=== PATIENT | female | born 1995 | race Caucasian/White ===

== ENCOUNTER 2020-03-24 08:37 | Outpatient (CLI) | payer OTHER, SELFPAY ==
--- NOTE | 2020-03-24 09:30 | NEURO_ITS ---
TEST: ELECTROENCEPHALOGRAM DIAGNOSIS: HEADACHES PATIENT NUMBER: [id number] EEG NUMBER: [id number] RECORDING DATE: 03/24/20 CONDITION OF RECORDING: Awake, drowsy and sleep EEG DESCRIPTION: Basic resting occipital frequency consists of moderate amount of fairly well organized low voltage 8-10hz alpha mixed with low voltage 15-18hz beta. Photic stimulation produced normal drive. During drowsiness low voltage beta activity is seen diffusely mixed with waxing and waning posterior alpha rhythms. Bilateral symmetrical sleep activity is seen during sleep. Nonparoxysmal. Nonfocal. Nonlateralizing. IMPRESSION: Normal record. [facility]
== END 2020-03-24 08:38 | disposition home or self-care (01) ==
LOC: ANHNEURO 08:39
PROVIDERS: PCP Physician Assistant; Visit Provider Psychiatry & Neurology Neurology
DX: R51 Headache (principal)
CPT/HCPCS: 95816

== ENCOUNTER 2021-03-29 12:49 | Emergency (ER) | payer MEDICARE, OTHER, SELFPAY ==
--- NOTE | ~2021-03-29 | XR_ITS ---
EXAMINATION: XR shoulder RT min 2V INDICATION: Right shoulder pain TECHNIQUE: Five views of the right shoulder are submitted. COMPARISON: None FINDINGS: Normal alignment. No fracture. Glenohumeral and acromioclavicular joint spaces are normal. Soft tissues are unremarkable. IMPRESSION: 1. No acute osseous abnormality. Reviewed, dictated and finalized at location A.
[2021-03-29 13:00] VITALS: BP 130/74; PULSE 81; RESP 18; TEMP 36.7; O2SAT 99
--- NOTE | 2021-03-29 13:50 | ED.NECK ---
HPI - Neck Pain/Injury General Chief Complaint: Neck Pain/Injury Stated Complaint: neck pain Source: patient and RN notes reviewed Mode of arrival: ambulatory History of Present Illness HPI Narrative: This is a 25-year-old female right shoulder pain. She has an extensive medical history including multiple strokes. According to patient when she turns her head to the right, lie on her right shoulder or extends her head backwards she experiences the most pain. No deformities noted in her neck or shoulder. She has been taking [id number] Tylenol for pain with no relief. [place] and [place] on her right side while the right. Ever since then she has been experiencing pain. No neurovascular deficiency noted, she has limited range of motion due to pain of her neck, sensations are positive to her right shoulder and neck. The patient denies SOB, CP, palpitation, extremity numbness, lightheadedness, dizziness, constipation, diarrhea, chills, or fever. Related Data Home Medications Medication Instructions Recorded Confirmed hydrocodone-acetaminophen tablet PO BID 03/29/21 medroxyprogesterone 150 mg IM [id number] 03/29/21 03/29/21 Allergies Allergy/AdvReac Type Severity Reaction Status Date / Time No Known Allergies Allergy Verified 03/29/21 13:09 Review of Systems Review of Systems: A 14 organ system Review of Systems was performed and pertinent positives included in the HPI, otherwise remaining ROS is negative. [facility] Family History Family History (Updated 03/29/21 @ 13:53 by PHANI Malcolm) Other Family history non-contributory Social History Social History Smoking status: Never smoker Alcohol intake: never Gender identity (if verbalized by the patient): Female Exam Narrative: GENERAL: This is a well-nourished, well-developed patient, in no apparent distress. HEAD: normocephalic, atraumatic. Tenderness to neck area with palpation EYES: PERRL. Sclera clear/white. Vision is grossly intact. EARS: External ears normal, auditory canals clear and without drainage, TMs normal without perforation. Hearing grossly intact. NOSE: External nose normal with no obvious nasal discharge, nares without redness, no rhinorrhea. THROAT: Mucous membranes moist, posterior pharynx clear. NECK: Neck supple, non-tender without lymphadenopathy, masses or thyromegaly. CARDIOVASCULAR: Regular rate and rhythm without murmurs, gallops, or rubs. RESPIRATORY: Clear to auscultation. Breath sounds equal bilaterally. No wheezes, rales, or rhonchi. GASTROINTESTINAL: Abdomen soft, non-tender, nondistended. Bowel sounds are active. No hepato-splenomegaly, or palpable masses. No guarding. SKIN: warm, intact with no suspicious lesions or rash, good texture and turgor. NEURO: awake, alert, and oriented to person, place and time. There were no obvious focal neurologic abnormalities. Steady gait EXTREMITIES: Normal range of motion. No edema. No calf tenderness. Negative Homans sign bilaterally. BACK: Nontender without deformity or crepitance. No flank tenderness. Course Course Emergency Course: Patient will be given Flexeril instructed to follow-up with her primary care physician in 2 weeks if no relief. Was also instructed to utilize ice Vital Signs Vital signs: Vital Signs Temperature 98.1 F 03/29/21 13:00 Pulse Rate 81 03/29/21 13:00 Respiratory Rate 18 03/29/21 13:00 Blood Pressure 130/74 03/29/21 13:00 Pulse Oximetry 99 03/29/21 13:00 Temperature 98.1 F 03/29/21 13:00 Pulse Rate 81 03/29/21 13:00 Respiratory Rate 18 03/29/21 13:00 Blood Pressure 130/74 03/29/21 13:00 Pulse Oximetry 99 03/29/21 13:00 MDM - Neck Pain/Injury Differential Diagnosis Differential diagnosis: Likely disc disorder of cervical region, whiplash injury to neck and strain of neck muscle Discharge Plan Discharge Clinical I
== END 2021-03-29 14:18 | disposition home or self-care (01) ==
PROVIDERS: Emergency Provider Nurse Practitioner
DX: S16.1XXA Strain of muscle, fascia and tendon at neck level, initial encounter (principal); W22.8XXA Striking against or struck by other objects, initial encounter; M25.511 Pain in right shoulder
CPT/HCPCS: 73030; 99213; G0463

== ENCOUNTER 2023-09-10 16:24 | Outpatient (CLI) | payer MEDICARE, MEDICAID, SELFPAY ==
--- NOTE | ~2023-09-10 | MR_ITS ---
EXAMINATION: MR brain/brain stem wo con DATE: 09/10/2023 17:20 INDICATION: Headache. Cavernoma status post reduction. TECHNIQUE: Magnetic resonance imaging (MRI) of the brain and brainstem was performed without intraven ous contrast. COMPARISON: Brain MRI 12/13/2015, head CT 01/07/2018 FINDINGS: There is chronic encephalomalacia involving right frontal temporal parietal region, right i nsula, right basal ganglia, and posterior limb right internal capsule with old blood products. There are punctate foci of old blood products in the frontal lobes. There is a chronic focus of old blood p roducts in left lateral ventricle. There is no acute ischemic infarct or abnormal mass lesion. There is mild ex vacuo dilatation of right lateral ventricle. There is mild mucosal thickening in the ethmo id sinuses. The orbits are normal. The mastoid air cells are normal. IMPRESSION: 1. Chronic encephalomalacia involving the right frontal temporal parietal region, right insula, right basal ganglia, and posterior limb right internal capsule. Reviewed, dictated and finalized at location E. SFUSION AIDE IMPRESSION: 1. Chronic encephalomalacia involving the right frontal temporal parietal regio n, right insula, right basal ganglia, and posterior limb right internal capsule .
== END 2023-09-10 16:25 | disposition home or self-care (01) ==
LOC: ANHIMG 16:26
PROVIDERS: PCP Family Medicine; Visit Provider Student in an Organized Health Care Education/Training Program
DX: R51.9 Headache, unspecified (principal); D18.00 Hemangioma unspecified site
CPT/HCPCS: 70551

== ENCOUNTER 2024-03-29 18:22 | Emergency (ER) | payer MEDICARE, MEDICAID, SELFPAY ==
--- NOTE | ~2024-03-29 | XR_ITS ---
EXAMINATION: XR chest 2V Exam Date/Time: 03/29/2024 19:00 CDT HISTORY: cough, fever x1 week Comparison: None. RESULT: Lines, tubes, and devices: None. Lungs and pleura: Clear. Cardiomediastinal silhouette: Stable. Other: No acute osseous or upper abdominal finding. IMPRESSION: No acute cardiopulmonary process. Reviewed, dictated and finalized at location K.
[2024-03-29 18:32] VITALS: BP 128/78; PULSE 136; RESP 16; TEMP 37.2; O2SAT 98
--- NOTE | 2024-03-29 18:57 | ED.URI ---
HPI - URI/Sore Throat General Chief Complaint: Upper Respiratory Infection Stated Complaint: cough,chest congestion Time Seen by Provider: 03/29/24 18:44 Source: patient and RN notes reviewed Mode of arrival: ambulatory Limitations: no limitations History of Present Illness HPI Narrative: Patient presents today with a one-week history of cough, chest congestion, headache, occasional shortness of breath, intermittent fever up to 102. She has been taking Mucinex without relief. States she has been exposed to several family members with pneumonia. Related Data Home Medications Medication Instructions Recorded Confirmed cyclobenzaprine 10 mg tablet 10 mg PO TID 06/23/23 03/29/24 sertraline 25 mg tablet 25 mg PO DAILY 06/23/23 03/29/24 Allergies Allergy/AdvReac Type Severity Reaction Status Date / Time No Known Allergies Allergy Verified 03/10/24 10:50 Review of Systems Review of Systems: CONSTITUTIONAL: Denies body aches, chills, or sweats.+ fever EYES: Denies visual changes, redness, or discharge. ENT: Denies rhinorrhea, congestion, sore throat, or otalgia. CARDIOVASCULAR: Denies chest pain, palpitations, or edema. RESPIRATORY: + cough, chest congestion, intermittent shortness of breath. GASTROINTESTINAL: Denies abdominal pain, nausea, vomiting, or diarrhea. GENITOURINARY: Denies dysuria or hematuria. SKIN: Denies rash, itching, or wounds. MUSCULOSKELETAL: Denies back pain, joint pain, or myalgia. NEUROLOGIC: Denies numbness, tingling, or weakness.+ headache PSYCH: Denies depression or anxiety. [facility], [facility] Past Medical History Medical History Anxiety and depression Migraine Stroke Surveillance for Depo-Provera contraception Surgical History Surgical History H/O brain surgery (~2018) Hx of cholecystectomy Family History Family History Other Family history non-contributory Social History Social History Smoking packs per day: 0 Smoking cigarettes per day: 0.0 Years smoked: 0 Smoking pack-years: 0.00 Smoking status: Never smoker Second hand tobacco smoke exposure: Yes Alcohol intake: never Substance use: never Substance use type: does not use Do You Feel Safe in your Home?: Yes Lack of Transportation: No Lack of Food: Never True Current Housing: I Have Housing Concerned About Future Housing: No Difficulty Paying Gas/Electric Bills: No Difficulty Paying for Meds: No Currently Unemployed: No Education: High School Diploma/GED Difficulty w/ Childcare or Family Care: No Living arrangements: other Additional living arrangements comments: Occupation/Education: unemployed Gender identity (if verbalized by the patient): Female Sexual Orientation (if Verbalized by the Patient): Straight or Heterosexual Comments At time of signature, I have reviewed and agree with nursing past medical, surgical, social and family history unless otherwise noted. Please see nursing chart for further information. There is no relevant family history pertinent to the presenting complaint Exam Narrative: GENERAL: Well-appearing, well-nourished, and in no acute distress. HEAD: Normocephalic, atraumatic. EYES: EOMI. No redness or drainage. Conjunctivae normal. ENT: Mucous membranes pink and moist. Nares congested. No rhinorrhea. TMs normal bilaterally. Throat normal. Uvula midline. NECK: Normal AROM. Supple. No lymphadenopathy. CHEST: No respiratory distress. Slight inspiratory wheeze throughout. Deep breath elicits coughing episodes. HEART: Regular rate and rhythm. No murmur appreciated. EXTREMITIES: Normal range of motion. No edema. SKIN: Warm, dry, no rash. Capillary refill normal. Normal skin turgor. NEURO: Left-sided
== END 2024-03-29 19:26 | disposition home or self-care (01) ==
PROVIDERS: Emergency Provider Nurse Practitioner; PCP Nurse Practitioner Family
DX: J40 Bronchitis, not specified as acute or chronic (principal); F41.9 Anxiety disorder, unspecified; F32.A Depression, unspecified; Z86.73 Personal history of transient ischemic attack (TIA), and cerebral infarction without residual deficits
CPT/HCPCS: 71046; 99213; G0463

== ENCOUNTER 2024-04-08 08:23 | Emergency (ER) | payer MEDICARE, MEDICAID, SELFPAY ==
[2024-04-08 08:33] VITALS: BP 129/82; PULSE 113; RESP 16; TEMP 36.8; O2SAT 99
--- NOTE | 2024-04-08 08:49 | ED.NAVMDI ---
HPI - Nausea/Vomiting/Diarrhea General Chief complaint: Nausea/Vomiting/Diarrhea Stated complaint: Ears Irritation Source: patient and RN notes reviewed Mode of arrival: ambulatory Limitations: no limitations History of Present Illness HPI Narrative: 28-year-old female presented for complaint of nausea for several days, and started with vomiting yesterday. states she had about 8 episodes of vomiting which resolved in the night. She was able to tolerate repeat the but reported nausea returned last night. Pt reports nausea today, denies vomiting or diarrhea, abdominal pain, urinary symptoms, fever or chills. Has not eaten anything today. Tested negative for last night and this morning at home. Treated for bronchitis on 03/29 with steroids and albuterol, continues to report persistent cough, And was prescribed cough medicine by her PCP yesterday. Related Data Home Medications Medication Instructions Recorded Confirmed cyclobenzaprine 10 mg tablet 10 mg PO TID 06/23/23 04/08/24 sertraline 25 mg tablet 25 mg PO DAILY 06/23/23 04/08/24 Allergies Allergy/AdvReac Type Severity Reaction Status Date / Time No Known Allergies Allergy Verified 04/08/24 08:40 Review of Systems Review of Systems: CONSTITUTIONAL: Denies body aches, fever, chills ENT: Denies rhinorrhea, congestion Reports bilateral ear pressure CARDIOVASCULAR: Denies chest pain, palpitations, or edema. RESPIRATORY: Denies dyspnea. reports cough GASTROINTESTINAL: Endorses nausea, vomiting, Denies abdominal pain, diarrhea, hematochezia, melena, hematemesis GENITOURINARY: Denies dysuria, hematuria, or CVA tenderness. SKIN: Denies rash MUSCULOSKELETAL: Denies back pain, joint pain, or myalgia. NEUROLOGIC: Denies headache, numbness, tingling All systems reviewed & are unremarkable except as noted in HPI and below PMFSH Past Medical History Medical History Anxiety and depression Migraine Stroke Surveillance for Depo-Provera contraception Surgical History Surgical History H/O brain surgery (~2018) Hx of cholecystectomy Family History Family History Other Family history non-contributory Social History Social History Smoking packs per day: 0 Smoking cigarettes per day: 0.0 Years smoked: 0 Smoking pack-years: 0.00 Smoking status: Never smoker Second hand tobacco smoke exposure: Yes Alcohol intake: never Substance use: never Substance use type: does not use Do You Feel Safe in your Home?: Yes Lack of Transportation: No Lack of Food: Never True Current Housing: I Have Housing Concerned About Future Housing: No Difficulty Paying Gas/Electric Bills: No Difficulty Paying for Meds: No Currently Unemployed: No Education: High School Diploma/GED Difficulty w/ Childcare or Family Care: No Living arrangements: other Additional living arrangements comments: Occupation/Education: unemployed Gender identity (if verbalized by the patient): Female Sexual Orientation (if Verbalized by the Patient): Straight or Heterosexual Comments At time of signature, I have reviewed and agree with nursing past medical, surgical, social and family history unless otherwise noted. Please see nursing chart for further information. There is no relevant family history pertinent to the presenting complaint Exam Narrative: GENERAL: Well-appearing, and in no acute distress. EYES: EOMI. Conjunctivae normal. ENT: Mucous membranes pink and moist. CHEST: No respiratory distress. Clear to auscultation. HEART: Regular rate and rhythm. No murmur appreciated. Normal peripheral pulses. ABDOMEN: abd soft, nondistended, normal active bowel sounds. Nontender abdomen; No guarding, rebound tenderness, as
[2024-04-08 09:19] LABS: EDINFLUASCREEN Negative; EDINFLUBSCREEN Negative
[2024-04-08 09:19] LABS: EDSTREPNEGPOS1 Presumptive Negative
== END 2024-04-08 09:30 | disposition home or self-care (01) ==
PROVIDERS: Emergency Provider Nurse Practitioner Family; PCP Nurse Practitioner Family
DX: J32.9 Chronic sinusitis, unspecified (principal); Z20.822 Contact with and (suspected) exposure to COVID-19; F41.9 Anxiety disorder, unspecified; F32.A Depression, unspecified; Z86.73 Personal history of transient ischemic attack (TIA), and cerebral infarction without residual deficits
CPT/HCPCS: 87081; 87426; 87804; 87880; 99213; G0463

== ENCOUNTER 2024-10-07 15:56 | Outpatient (CLI) | payer MEDICARE, MEDICAID, SELFPAY ==
--- NOTE | ~2024-10-07 | XR_ITS ---
HISTORY: PAIN COMPARISON: None TECHNIQUE: 4 views of the right knee were performed FINDINGS: No acute or subacute fracture. Medial and lateral tibiofemoral joint space narrowing is identified. No suprapatellar joint effusion is identified. The infrapatellar joint space is clear. IMPRESSION: Degenerative disease without acute fracture. Reviewed, dictated and finalized at location A. IFOCAL LENS INSPECTOR
--- NOTE | ~2024-10-07 | XR_ITS ---
HISTORY: PAIN COMPARISON: None TECHNIQUE: 2 views of the right hip. FINDINGS: No acute fracture or dislocation is identified. Superior lateral sclerosis of the right femoral acetabular joint space is present consistent with mil d osteoarthritis. Mineralization is age-appropriate. IMPRESSION: Degenerative disease without acute fracture or dislocation Reviewed, dictated and finalized at location A. TIC MIXER
--- NOTE | ~2024-10-07 | XR_ITS ---
HISTORY: PAIN COMPARISON: None TECHNIQUE: 2 views of the left hip. FINDINGS: No acute fracture or dislocation is identified. Superior lateral sclerosis of the femoral acetabular joint space is present consistent with osteoarth ritis. Mineralization is age-appropriate. IMPRESSION: Degenerative disease without acute fracture or dislocation Reviewed, dictated and finalized at location A. NING DIRECTOR
--- NOTE | ~2024-10-07 | XR_ITS ---
HISTORY: PAIN X SEVERAL YEARS DUE TO STROKE. NO INJURY COMPARISON: None TECHNIQUE: 2 views of the right shoulder were performed FINDINGS: No acute fracture. The glenohumeral and acromioclavicular joint space is maintained The visualized portion of the adjacent right lung is clear. The humeral head is well seated within the glenoid fossa. IMPRESSION: No acute fracture or anterior dislocation. Reviewed, dictated and finalized at location A. CY CHANGE CLERKS SUPERVISOR
--- NOTE | ~2024-10-07 | XR_ITS ---
HISTORY: PAIN COMPARISON: None TECHNIQUE: 4 views of the left knee were performed FINDINGS: No acute or subacute fracture. Medial and lateral tibiofemoral joint space narrowing is identified. A small suprapatellar joint effusion is identified. The infrapatellar joint space is clear. IMPRESSION: Degenerative disease with a small suprapatellar joint effusion, without acute fracture. Reviewed, dictated and finalized at location A. PEMENT MAKER IMPRESSION: Degenerative disease with a small suprapatellar joint effusion, wi thout acute fracture.
--- NOTE | ~2024-10-07 | XR_ITS ---
HISTORY: PAIN COMPARISON: None TECHNIQUE: 2 views of the left shoulder were performed FINDINGS: No acute fracture. The glenohumeral and acromioclavicular joint space is maintained The visualized portion of the adjacent left lung is clear. The humeral head is well seated within the glenoid fossa. IMPRESSION: No acute fracture or anterior dislocation. Reviewed, dictated and finalized at location A. AL ANATOMY TEACHER
--- NOTE | ~2024-10-07 | XR_ITS ---
HISTORY: PAIN COMPARISON: None TECHNIQUE: Frontal view of the pelvis was performed. FINDINGS: Superior lateral joint space narrowing and sclerosis is identified within the bilateral femoral aceta bular joint spaces. No acute fracture or dislocation is appreciated. Bone mineralization is age-appropriate. IMPRESSION: Degenerative disease, without acute fracture or dislocation, as detailed above. Reviewed, dictated and finalized at location A. E PREVENTION POLICE OFFICER
--- OUTSIDE RECORDS SUMMARY | 2024-10-07 16:04 | XMS_ITS | Patient Health Summary ---
Author Organization [facility] Address [address] [place] [address] Care Team Providers Care Senior Etl Developer Name Role Phone Ab Riggs MARGARITA-BALLOON ARTIST Primary Care Provider [phone] Note from [facility] [place],non-owned Affiliates and Associated Physician Practices is amultiple site organization consisting of ambulatory clinics and hospital sitesin [place], [place], [place] and [place]. This disclosure is being madepursuant to the Care Everywhere program and may not contain all information available regarding this patient. Last updated 18.[facility] Allergies No known active allergies Medications * Be aware that medications may not be up to date on this document. Alwaysverify current medications with the patient. * cyclobenzaprine (Flexeril) 5 MG tablet(Started 03/25/2023) TAKE 1 TO 2 TABLETS BY MOUTH THREE TIMES DAILY NEEDED FOR MUSCLE SPASM * azelastine (Optivar) 0.05 % ophthalmic solution(Started 05/26/2023) * fluticasone propionate (Flonase) 50 MCG/ACT nasal spray(Started 01/14/2023) SHAKE LIQUID AND USE 1 SPRAY IN EACH NOSTRIL EVERY DAY * HYDROcodone-acetaminophen (Convent) 10-325 MG tablet(Started 08/17/2023) Take 1 (one) tablet by mouth every 12 hours as needed * loratadine (Claritin) 10 MG tablet(Started 01/14/2023) Take 1 (one) tablet by mouth once daily * sertraline (Zoloft) 25 MG tablet(Started 07/14/2023) Take 1 (one) tablet by mouth once daily * DULoxetine (Cymbalta) 60 MG capsule(Started 04/22/2024) Take 1 (one) capsule by mouth once daily 4 refills by 04/22/2025 * Atogepant (Qulipta) 30 MG TABS(Started 06/01/2024) Take 1 (one) tablet by mouth nightly as needed 1 refill by 06/01/2025 * onabotulinumtoxin A (Botox) 200 units injection(Started 06/01/2024) Inject 400 (four hundred) Units into muscle Every 90 days Reasons: Muscle Spasticity 2 refills by 06/01/2025 * onabotulinumtoxin A (Botox) 200 units injection(Started 06/28/2024) Inject 400 (four hundred) Units into muscle Every 90 days 2 refills by 06/28/2025 Active Problems Problem Noted Date Diagnosed Date Amenorrhea 06/01/2024 Irregular periods 06/01/2024 Lesion of vulva 06/01/2024 Menorrhagia 06/01/2024 Pain in pelvis 06/01/2024 Urinary urgency 06/01/2024 Vaginal discharge 06/01/2024 Cerebrovascular accident 05/12/2023 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 Injury of head 05/12/2023 Left foot drop 05/12/2023 Migraine 05/12/2023 Headache 05/12/2023 Seasonal allergies 05/12/2023 Spasm 05/12/2023 Pain in upper limb 04/02/2023 Pain of toe of left foot 03/25/2023 Mixed anxiety and depressive disorder 12/02/2022 Rubella non-immune status, antepartum 03/17/2019 39 weeks gestation of 03/13/2019 Elevated glucose level 01/25/2019 Hx of craniotomy 09/02/2018 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 Encounter to establish gestational age using ult rasound Super[facility] for anatomic survey H/O: stroke with residual effects Evaluate anatomy not seen on prior sonogram Resolved Problems Problem Noted Date Diagnosed Date Resolved Date Cough 04/06/2024 06/29/2024 Upper respiratory infection 07/06/2023 06/15/2024 Immunizations * Rho D Immune Globulin(Given 12/23/2018) * TDAP (7yrs+)(Given 01/25/2019) Social History Tobacco Use Types Packs/Day Years Used Date Smoking Tobacco: Never Smokeless Tobacco: Never Alcohol Use Standard Drinks/Week Comments No 0 (1 standard drink = 0.6 oz pur e alcohol) Sex and Gender Information Value Date Recorded Sex Assigned at Not on file Gender Identity Not on file Sexual Orientation Not on file Last Filed Vital Signs Vital Sign Reading Time Taken Comments Blood Pressure 115/79 07/01/2024 9:01 AM CONDUIT MECHANIC Pulse 99 07/01/2024 9:01 AM CONDUIT MECHANIC Temperature 36.9 C (98.4 F) 09/16/2023 10:19 AM CONDUIT MECHANIC Respiratory Rate 20 10/19/2019 10:43 AM CONDUIT MECHANIC Oxygen Saturation 99% 07/01/2024 9:01 AM CONDUIT MECHANIC Inhaled Oxygen Concentration - - Weight 75.1 kg (165 lb 8 oz) 07/01/2024 9:01 AM CONDUIT MECHANIC Height 167.6 cm (5' 6 ) 07/01/2024 9:01 AM CONDUIT MECHANIC Body Mass Index 26.71 07/01/2024 9:01 AM CONDUIT MECHANIC Medical Devices Implanted Type Area Checker Loader Device Identifier Shelf Expiration Date Model / Serial / Lot Aneurysm Clip Aneurysm Clip Description:Girma cardoso clip Procedures * MI CHEMODENERV ONE EXTREM 1-4 MUSCLES(Performed 06/28/2024) Performed for Spasticity as late effect of cerebrovascular accident (CVA) * MRI BRAIN WWO CONTRAST(Performed 10/19/2019) Performed for Cavernoma * CREATININE BLOOD - POCT (IP) [facility](Performed 10/19/2019) Performed for Cavernoma * HCG URINE QUALITATIVE - POINT OF CARE(Performed 04/13/2019) Performed for control * IMAGING/RADIOLOGY/XRAY RESULTS ORDER(Performed 03/16/2019) * HGB HCT PANEL(Performed 03/14/2019) * HEPATITIS B SURFACE ANTIBODY(Performed 03/13/2019) * RUBELLA ANTIBODY IGG(Performed 03/13/2019) * CBC W AUTO DIFFERENTIAL(Performed 03/13/2019) * BLOOD GASES CORD MIR (ISTAT)(Performed 03/13/2019) * BLOOD GASES CORD ART (ISTAT)(Performed 03/13/2019) * TYPE + SCREEN PANEL(Performed 03/13/2019) * WET PREP SMEAR - POINT OF CARE (IP)(Performed 03/08/2019) Performed for , unspecified gestational age (HCC), Vaginal irritation * GLUCOSE PROTEIN KETONE URINE - POINT OF CAR(Performed 03/08/2019) Performed for , unspecified gestational age ([facility]) * GLUCOSE PROTEIN KETONE URINE - POINT OF CAR(Performed 03/01/2019) Performed for Hx of craniotomy * GLUCOSE PROTEIN KETONE URINE - POINT OF CAR(Performed 02/22/2019) Performed for , unspecified gestational age (HCC) * GLUCOSE PROTEIN KETONE URINE - POINT OF CAR(Performed 02/15/2019) Performed for , unspecified gestational age ([facility]) * GLUCOSE PROTEIN KETONE URINE - POINT OF CAR(Performed 02/15/2019) Performed for , unspecified gestational age ([facility]) * GTT 3 HR (100G) GESTATIONAL DIAGNOSTIC(Performed 02/08/2019) Performed for Elevated glucose level * CULTURE STREP B(Performed 02/08/2019) Performed for Supervision of normal first , antepartum ([facility]) * GLUCOSE PROTEIN KETONE URINE - POINT OF CAR(Performed 02/08/2019) Performed for Elevated glucose level * GLUCOSE - POINT OF CARE(Performed 02/08/2019) * GLUCOSE PROTEIN KETONE URINE - POINT OF CAR(Performed 01/25/2019) Performed for 32 weeks gestation of ([facility]) * GLUCOSE PROTEIN KETONE URINE - POINT OF CAR(Performed 01/06/2019) Performed for Encounter to establish gestational age using ultrasound ([facility]) * SONOGRAM - COMPLETE(Performed 01/06/2019) * GLUCOSE CHALLENGE(Performed 12/23/2018) Performed for , unspecified gestational age ([facility]) * GLUCOSE PROTEIN KETONE URINE - POINT OF CAR(Performed 12/23/2018) Performed for , unspecified gestational age ([facility]) * TYPE + SCREEN PANEL(Performed 12/02/2018) Performed for Encounter to establish gestational age using ultrasound ([facility]) * SYPHILIS ANTIBODY CASCADING REFLEX(Performed 12/02/2018) Performed for Encounter to establish gestational age using ultrasound ([facility]) * URINALYSIS REFLEX MICROSCOPIC REFLEX CULTURE(Performed 12/02/2018) Performed for Encounter to establish gestational age using ultrasound ([facility]) * HIV-1 HIV-2 ANTIBODY + HIV P24 AG PANEL(Performed 12/02/2018) Performed for Encounter to establish gestational age using ultrasound ([facility]) * CBC W AUTO DIFFERENTIAL(Performed 12/02/2018) Performed for Encounter to establish gestational age using ultrasound ([facility]) * GLUCOSE PROTEIN KETONE URINE - POINT OF CAR(Performed 12/02/2018) Performed for Encounter to establish gestational age using ultrasound ([facility]) * CHLAMYDIA + GC AMPLIFIED PROBE(Performed 11/04/2018) Performed for , unspecified gestational age ([facility]) * TRICHOMONAS RAPID TEST(Performed 11/04/2018) Performed for , unspecified gestational age ([facility]) * GLUCOSE PROTEIN KETONE URINE - POINT OF CAR(Performed 11/04/2018) Performed for , unspecified gestational age ([facility]) * SONOGRAM - COMPLETE(Performed 10/21/2018) Performed for Supervision of high risk in second trimester ([facility]) * BETA-2 GLYCOPROTEIN 1 ANTIBODY IGG/IGM PANEL(Performed 09/01/2018) Performed for , unspecified gestational age ([facility]) * CARDIOLIPIN ANTIBODY IGG/IGM PANEL(Performed 09/01/2018) Performed for , unspecified gestational age ([facility]) * PROTHROMBIN [id number] PANEL(Performed 09/01/2018) Performed for , unspecified gestational age ([facility]) * FACTOR V LEIDEN MUTATION PANEL(Performed 09/01/2018) Performed for , unspecified gestational age ([facility]) * RPR(Performed 09/01/2018) Performed for , unspecified gestational age ([facility]) * HIV-1 HIV-2 ANTIBODY + HIV P24 AG PANEL(Performed 09/01/2018) Performed for , unspecified gestational age ([facility]) * CBC W AUTO DIFFERENTIAL(Performed 09/01/2018) Performed for , unspecified gestational age ([facility]) * PAP THINPREP(Performed 09/01/2018) Performed for , unspecified gestational age ([facility]) * TRICHOMONAS VAGINALIS AMPLIFIED PROBE(Performed 09/01/2018) Performed for , unspecified gestational age ([facility]) * CHLAMYDIA + GC AMPLIFIED PROBE(Performed 09/01/2018) Performed for , unspecified gestational age ([facility]) * GLUCOSE PROTEIN KETONE URINE - POINT OF CAR(Performed 09/01/2018) Performed for , unspecified gestational age ([facility]) * SONOGRAM - COMPLETE(Performed 09/01/2018) Performed for Encounter for anatomic survey ([facility]) * IMAGING/RADIOLOGY/XRAY RESULTS ORDER(Performed 01/12/2018) * BASIC METABOLIC PANEL (CALCIUM TOTAL)(Performed 11/01/2017) * CBC W AUTO DIFFERENTIAL(Performed 11/01/2017) * CBC W AUTO DIFFERENTIAL(Performed 11/01/2017) * CBC W AUTO DIFFERENTIAL(Performed 10/31/2017) * BASIC METABOLIC PANEL (CALCIUM TOTAL)(Performed 10/31/2017) * CBC W AUTO DIFFERENTIAL(Performed 10/31/2017) * OSMOLALITY URINE(Performed 10/30/2017) * SPECIFIC GRAVITY URINE(Performed 10/30/2017) * CBC W AUTO DIFFERENTIAL(Performed 10/30/2017) * BASIC METABOLIC PANEL (CALCIUM TOTAL)(Performed 10/30/2017) * PHOSPHORUS BLOOD(Performed 10/30/2017) * MAGNESIUM BLOOD(Performed 10/30/2017) * CBC W AUTO DIFFERENTIAL(Performed 10/30/2017) * DIFFERENTIAL MANUAL(Performed 10/28/2017) * CBC W AUTO DIFFERENTIAL(Performed 10/28/2017) * CBC W AUTO DIFFERENTIAL(Performed 10/28/2017) * BASIC METABOLIC PANEL (CALCIUM TOTAL)(Performed 10/28/2017) * PHOSPHORUS BLOOD(Performed 10/28/2017) * MAGNESIUM BLOOD(Performed 10/28/2017) * OSMOLALITY URINE(Performed 10/28/2017) * SPECIFIC GRAVITY URINE(Performed 10/28/2017) * SODIUM BLOOD(Performed 10/28/2017) * MRI BRAIN WWO CONTRAST(Performed 10/28/2017) * CBC W AUTO DIFFERENTIAL(Performed 10/27/2017) * CBC W AUTO DIFFERENTIAL(Performed 10/27/2017) * BASIC METABOLIC PANEL (CALCIUM TOTAL)(Performed 10/27/2017) * PHOSPHORUS BLOOD(Performed 10/27/2017) * MAGNESIUM BLOOD(Performed 10/27/2017) * CT HEAD WO CONTRAST(Performed 10/27/2017) * PATHOLOGY TISSUE(Performed 10/27/2017) * BLOOD GASES ART COMPLETE [facility] OR(Performed 10/27/2017) * CT ANGIO BRAIN STEREOTACTIC(Performed 10/27/2017) * PREPARE FFP UNIT(S)(Performed 10/27/2017) * CROSSMATCH RBC LEUKOREDUCED(Performed 10/27/2017) * TYPE + SCREEN PANEL(Performed 10/27/2017) * CBC W AUTO DIFFERENTIAL(Performed 10/16/2017) * HEPATITIS SCREEN ACUTE(Performed 10/16/2017) * HIV-1 HIV-2 ANTIGEN/ANTIBODY(Performed 10/16/2017) * COMPREHENSIVE METABOLIC PANEL(Performed 10/16/2017) * PTT [facility](Performed 10/16/2017) * PT-INR [facility](Performed 10/16/2017) * CBC W AUTO DIFFERENTIAL(Performed 10/16/2017) * MRI BRAIN WWO CONTRAST(Performed 10/16/2017) * EKG 12-LEAD(Performed 10/16/2017) * MRI BRAIN WWO CONTRAST(Performed 05/22/2016) * MRI BRAIN FUNCTIONAL(Performed 05/22/2016) * CREATININE BLOOD - POCT (IP) [facility](Performed 05/22/2016) * CULTURE URINE(Performed 10/07/2013) * GROSS + MICRO EXAM(Performed 11/27/2006) Results * MI CHEMODENERV ONE EXTREM 1-4 MUSCLES (06/28/2024 9:33 AM CONDUIT MECHANIC) Narrative Dion Lund MD - 06/28/2024 9:33 AM CONDUIT MECHANIC Dion Lund MD 06/28/2024 9:39 AM Please see procedure notes Dion Crespo MD PROCEDURE/FELISHA R SURGICAL ORDERABLES * MRI BRAIN WWO CONTRAST (10/19/2019 10:16 AM CONDUIT MECHANIC) Only the most recent of4 resultswithin the time period is included. Anatomical Region Laterality Modality Head Magnetic Resonan ce 10/19/2019 10:5 9 AM CONDUIT MECHANIC Impressions 10/19/2019 1:36 PM CONDUIT MECHANIC IMPRESSION: Postoperative appearance of right pterional craniotomy for resection of cavernoma with interval decrease in the previously seen small foci of enhancement adjacent to the surgical site which May represent postoperative changes, although residual cavernoma cannot be totally excluded. Attention on follow-up is recommended. This report was approved by Alan Gonzalez on 10/19/2019 1:36 PM . I, Dr. GILBERT STARK have personally reviewed and interpreted this examination/study. This report was electronically signed by GILBERT STARK on 10/19/2019 1:36 PM . Narrative 10/19/2019 1:36 PM CONDUIT MECHANIC MRI BRAIN WWO CONTRAST DATE: 10/19/2019 10:17 AM EXAMINATION: Magnetic resonance imaging (MRI) of the brain without and with contrast HISTORY: Cavernoma TECHNIQUE: MRI of the brain was performed prior to and following the uneventful administration of 7 mL of Gadavist intravenous gadolinium contrast according to standard protocol. FINDINGS: Comparison is made with an MRI from 10/28/2017. Postsurgical changes of right pterional craniotomy for resection of a right cerebrum cavernoma are again seen. Expected interval evolution in encephalomalacia/gliosis along the surgical tract which appear more conspicuous compared to the prior. Interval resolution of the pneumocephalus along the surgical tract and resolution of the extra-axial pneumocephalus anterior to the frontal lobes. Susceptibility artifact from embolization clip and blood products is redemonstrated. There has been interval decrease in the previously seen region of enhancement in the right basal ganglia/right thalamic region and compared to prior, (series 14 image 67 through 75). Findings are nonspecific and may represent postoperative change. Residual cavernoma cannot be excluded. Adjacent linear enhancement likely represent associated developmental venous anomaly, (series 14, image 69-70). No new enhancing lesions are identified. A focus of susceptibility artifact in the right frontal lobe may represent a tiny cavernous malformation (series 10 image 43), and is unchanged from prior exam. No evidence of acute hemorrhage is identified. No evidence of acute cerebral infarction is seen. The ventricles are nondilated. There is no significant midline shift. The corpus callosum and sella are stable in appearance. The posterior fossa, brainstem, and craniocervical junction appear grossly stable. Other than mild paranasal sinus disease, the visualized portions of the orbits, paranasal sinuses, and mastoids appear normal. Normal flow voids are demonstrated in the carotid arteries and basilar artery. The calvarium and visualized cervical spine appear normal. Procedure Note Gilbert Stark MD - 10/19/2019 MRI BRAIN WWO CONTRAST DATE: 10/19/2019 10:17 AM EXAMINATION: Magnetic resonance imaging (MRI) of the brain without and with contrast HISTORY: Cavernoma TECHNIQUE: MRI of the brain was performed prior to and following the uneventful administration of 7 mL of Gadavist intravenous gadolinium contrast according to standard protocol. FINDINGS: Comparison is made with an MRI from 10/28/2017. Postsurgical changes of right pterional craniotomy for resection of a right cerebrum cavernoma are again seen. Expected interval evolution in encephalomalacia/gliosis along the surgical tract which appear more conspicuous compared to the prior. Interval resolution of the pneumocephalus along the surgical tract and resolution of theextra-axial pneumocephalus anterior to the frontal lobes. Susceptibility artifactfrom embolization clip and blood products is redemonstrated. There has been interval decrease in the previously seen region of enhancement in the right basal ganglia/right thalamic region and compared to prior, (series 14 image 67 through 75). Findings are nonspecific and may represent postoperative change. Residual cavernoma cannot be excluded. Adjacent linear enhancement likely represent associated developmental venous anomaly, (series 14, image 69-70). No new enhancing lesions are identified. A focus of susceptibility artifact in the right frontal lobe may represent a tiny cavernous malformation (series 10 image 43), and is unchanged from prior exam. No evidence of acute hemorrhage is identified. No evidence of acute cerebral infarction is seen. The ventricles are nondilated. There is no significant midline shift. The corpus callosum and sella are stable in appearance. The posterior fossa, brainstem, and craniocervical junction appear grossly stable. Other than mild paranasal sinus disease, the visualized portions of the orbits, paranasal sinuses, and mastoids appear normal. Normal flow voids are demonstrated in the carotid arteries and basilar artery. Thecalvarium and visualized cervical spine appear normal. IMPRESSION: Postoperative appearance of right pterional craniotomy for resection of cavernoma with interval decrease in the previously seen small foci of enhancement adjacent to the surgical site which May represent postoperative changes, although residual cavernoma cannot be totally excluded. Attention on follow-up is recommended. This report was approved by Alan Gonzalez on 10/19/2019 1:36 PM . I, Dr. GILBERT STARK have personally reviewed and interpreted this examination/study. This report was electronically signed by GILBERT STARK on10/19/2019 1:36 PM . Iris Simmons MD MR ORDERABLES * CREATININE BLOOD - POCT () [facility] (10/19/2019 9:16 AM CONDUIT MECHANIC) Only the most recent of2 resultswithin the time period is included. Creatinine POCT 1.14 0.3 - 1.3 mg/dL [facility] eGFR POCT 60 60 ml/min [facility] Blood BLOOD SPECIMEN / Unknown 10/19/2019 9:16 AM CONDUIT MECHANIC Iris Simmons MD LAB - POINT OF CARE ORDERABLES Performing Organization Address City/[facility]/ZIP Co de Phone Number [facility] [address] [phone] * HCG URINE QUALITATIVE - POINT OF CARE (04/13/2019 2:03 PM CDT) HCG Qual Urine Negative Negative [facility] POCT TESTING QC Verified Yes Yes [facility] POC T TESTING Urine URINE / Unknown 04/13/2019 2 :03 PM CDT Gabriela Horowitz APRN-BALLOON ARTIST LAB - POINT OF CA RE ORDERABLES Performing Organization Address [facility] Co de Phone Number [facility] PO[facility] TEST[facility] [address] [place] [address] * IMAGING/RADIOLOGY/XRAY RESULTS ORDER (03/16/2019 10:25 AM CDT) Only the most recent of2 resultswithin the time period is included. Anatomical Region Laterality Modality Other Narrative 03/16/2019 10:25 AM CDT Ordered by an unspecified provider. Scanned Document IMAGING * (ABNORMAL) HGB HCT PANEL (03/14/2019 4:50 AM CDT) Hemoglobin 11.5(L) 12.0 - 15.6 gm/dL 03/14/2019 5:50 AM CDT [facility] Hematocrit 34.2(L) 35.9 - 45.5 % 03/14/2019 5:50 AM CDT [facility] Blood BLOOD SPECIMEN / Unknown Lab Venipuncture / Unknown 03/14/2019 4:50 AM CDT 03/14/2019 5:01 AM CDT aVndana Alexander MD LAB - HEMATOLOGY O RDERABLES Performing Organization Address [facility] Co de Phone Number [facility] [address] [place] [address] * (ABNORMAL) RUBELLA ANTIBODY IGG (03/13/2019 7:27 PM CDT) [facility] Rubella Antibody <0.90(L) Immune >0.99 index 03/16/2019 7:08 AM CDT [facility] ([facility]) Comment: Non-immune <0.90 Equivocal 0.90 - 0.99 Immune >0.99 Blood BLOOD SPECIMEN / Unknown Venipuncture / Unknown 03/13/2019 7:27 PM CDT 03/13/2019 7:31 PM CDT Narrative [facility] ([facility]) - 03/16/2019 7:08 AM CDT Performed at: - [address] [id number] Electronic Warfare Specialist: Yrn Simpson PhD, Phone: [phone] Vandana Alexander MD LAB - SEROLOGY ORD ERABLES Performing Organization Address City/[facility] Co de Phone Number [facility] [address] [place] [address] * HEPATITIS B SURFACE ANTIBODY (03/13/2019 7:27 PM CDT) [facility] HBsAb Non Reactive Non Reactive 03/13/2019 8:51 PM CDT [facility] Blood BLOOD SPECIMEN / Unknown Venipuncture / Unknown 03/13/2019 7:27 PM CDT 03/13/2019 7:31 PM CDT Vandana Alexander MD LAB - CHEMISTRY OR DERABLES Performing Organization Address City/[facility]/ZIP Co de Phone Number [facility] [address] [place] [address] * (ABNORMAL) CBC W AUTO DIFFERENTIAL (03/13/2019 5:30 PM CDT) Only the most recent of15 resultswithin the time period is included. [facility] WBC 10.7 4.4 - 10.7 x10E9/L 03/13/2019 6:43 PM CDT [facility] WBC Corrected x10E9/L 03/13/2019 6:43 PM CDT [facility] RBC 4.51 3.80 - 5.20 x10E12/L 03/13/2019 6:43 PM CDT [facility] Hemoglobin 13.5 12.0 - 15.6 gm/dL 03/13/2019 6:43 PM CDT [facility] Hematocrit 40.4 35.9 - 45.5 % 03/13/2019 6:43 PM CDT [facility] MCV 89.6 80.7 - 98.3 fl 03/13/2019 6:43 PM CDT [facility] MCH 29.9 26.7 - 34.0 pg 03/13/2019 6:43 PM CDT [facility] MCHC 33.4 30.8 - 35.9 gm/dL 03/13/2019 6:43 PM CDT [facility] Platelet Count 237 153 - 416 x10E9/L 03/13/2019 6:43 PM CDT [facility] RDW-CV 13.2 12.1 - 14.9 % 03/13/2019 6:43 PM CDT [facility] MPV 10.5 9.4 - 12.9 fl 03/13/2019 6:43 PM CDT [facility] Neutrophils % 77.5(H) 44.0 - 73.0 % 03/13/2019 6:43 PM CDT [facility] Lymphocytes % 14.6(L) 20.0 - 43.0 % 03/13/2019 6:43 PM CDT [facility] Monocytes % 6.8 5.0 - 13.0 % 03/13/2019 6:43 PM CDT [facility] Eosinophils % 0.5 0.0 - 6.0 % 03/13/2019 6:43 PM CDT [facility] Basophils % 0.2 0.0 - 2.0 % 03/13/2019 6:43 PM CDT [facility] Immature Granulocytes 0.4 0 - 1 % 03/13/2019 6:43 PM CDT [facility] Neutrophil Absolute 8.32(H) 2.01 - 7.14 x10E9/L 03/13/2019 6:43 PM CDT [facility] Lymphocytes Absolute 1.56 1.07 - 3.94 x10E9/L 03/13/2019 6:43 PM CDT [facility] Monocytes Absolute 0.73 0.26 - 1.07 x10E9/L 03/13/2019 6:43 PM CDT [facility] Eosinophils Absolute 0.05 0 - 0.47 x10E9/L 03/13/2019 6:43 PM CDT [facility] Basophils Absolute 0.02 0 - 0.08 x10E9/L 03/13/2019 6:43 PM CDT [facility] Immature Granulocytes Absolute 0.04 0.00 - 0.06 [id number]/L 03/13/2019 6:43 PM CDT [facility] nRBC Auto 0 /100 WBC 03/13/2019 6:43 PM CDT [facility] Blood BLOOD SPECIMEN / Unknown Lab Venipuncture / Unknown 03/13/2019 5:30 PM CDT 03/13/2019 6:39 PM CDT Alma Ravi MD LAB - HEMATOLOGY ORD ERABLES [facility] [address] [place] [address] * (ABNORMAL) BLOOD GASES CORD MIR (ISTAT) (03/13/2019 5:21 PM CDT) pH Cord Venous POCT 7.24(L) 7.28 - 7.40 pH 03/13/2019 5:59 PM CDT [facility] pCO2 Cord Venous POCT 53(H) 35 - 45 mmHg 03/13/2019 5:59 PM CDT [facility] pO2 Cord Venous POCT 19(L) 22 - 33 mmHg 03/13/2019 5:59 PM CDT [facility] HCO3 Cord Arterial POCT 22.6 22 - 24 mmol/L 03/13/2019 5:59 PM CDT [facility] BE Cord Venous POCT Calc -6 -6.4 - 1.6 mmol/L 03/13/2019 5:59 PM CDT [facility] TCO2 Cord Venous POCT 24 22 - 30 mmol/L 03/13/2019 5:59 PM CDT [facility] O2 Saturation % Cord Venous Calc POCT 22 % 03/13/2019 5:59 PM CDT [facility] Site CORD MIR 03/13/2019 5:59 PM CDT [facility] Sample iSTAT CORD V 03/13/2019 5:59 PM CDT [facility] Blood CORD BLOOD SPECIMEN / Unknown 03/13/2019 5:21 PM CDT 03/13/2019 5:59 PM CDT Tessy Christiansen MD LAB - POINT OF CARE ORDERABLES Performing Organization Address [facility] Co de Phone Number [facility] [address] [place], [place] [phone] * (ABNORMAL) BLOOD GASES CORD ART (ISTAT) (03/13/2019 5:17 PM CDT) pH Cord Arterial POCT 7.17(L) 7.20 - 7.34 pH 03/13/2019 5:59 PM CDT [facility] pCO2 Cord Arterial POCT 64.7(H) 45 - 55 mmHg 03/13/2019 5:59 PM CDT [facility] pO2 Cord Arterial POCT 18 12 - 25 mmHg 03/13/2019 5:59 PM CDT [facility] HCO3 Cord Arterial POCT 23.8 22 - 24 mmol/L 03/13/2019 5:59 PM CDT [facility] BE Cord Arterial POCT -6(L) -2.9 - 8.3 mmol/L 03/13/2019 5:59 PM CDT [facility] TCO2 Cord Arterial POCT 26 mmol/L 03/13/2019 5:59 PM CDT [facility] O2 Saturation Cord Art % Calc POCT 17 % 03/13/2019 5:59 PM CDT [facility] Site CORD ART 03/13/2019 5:59 PM CDT [facility] Sample iSTAT CORD A 03/13/2019 5:59 PM CDT [facility] Blood CORD BLOOD SPECIMEN / Unknown 03/13/2019 5:17 PM CDT 03/13/2019 5:59 PM CDT Tessy Christiansen MD LAB - POINT OF CARE ORDERABLES [facility] [address] [place] [phone] * TYPE + SCREEN PANEL (03/13/2019 3:30 PM CDT) Only the most recent of3 resultswithin the time period is included. ABO A 03/13/2019 4:33 PM CDT [facility] Rh Type Negative 03/13/2019 4:33 PM CDT [facility] Comment:History checked. Antibody Screen Negative 03/13/2019 4:33 PM CDT [facility] Blood Bank BLOOD SPECIMEN / Unknown Lab Venipuncture / Unknown 03/13/2019 3:30 PM CDT 03/13/2019 4:04 PM CDT Vandana Alexander MD LAB - BLOOD BANK O RDERABLES [facility] [address] [place] [address] * (ABNORMAL) WET PREP SMEAR - POINT OF CARE (IP) (03/08/2019 9:05 AM CDT) Clue Cells (Wet Smear) Absent Absent [facility] Yeast (Wet Smear) Present(A) Absent [facility] Trichomonas Wet Prep POCT Absent Absent [facility] TEST[facility] WBC (Wet Smear) Absent Absent [facility] pH Wet Smear 4.[address] [facility] [address] TESTING Other VAGINAL SWAB / Unknown 03/08/2019 9:05 AM CDT Francisca Mora APRN-BALLOON ARTIST LAB - POINT OF CARE ORDERABLES Performing Organization Address City/[facility] Co de Phone Number [facility] POCT TESTING [address] [place] [address] * GLUCOSE PROTEIN KETONE URINE - POINT OF CARE (03/08/2019 8:30 AM CDT) Only the most recent of12 resultswithin the time period is included. Glucose UA neg Negative [facility] Protein UA neg Negative [facility] PO[facility] TEST[facility] Ketone UA trace Negative [facility] QC Verified Yes Yes [facility] POC T TESTING Urine URINE / Unknown 03/08/2019 8 :30 AM CDT Adri Vergara MD LAB - POINT OF CARE ORDERABLES [facility] TEST[facility] [address] [phone] * (ABNORMAL) GTT 3 HR (100G) GESTATIONAL DIAGNOSTIC (02/08/2019 11:45 AM CDT) Pathologist [facility] Glucose Dose Gestational 100 gm 02/08/2019 1:10 PM CDT [facility] Gestational GTT Fasting 89 50-<95 mg/dL 02/08/2019 1:10 PM CDT [facility] Gestational GTT 1 HR 165 50-<180 mg/dL 02/08/2019 1:10 PM CDT [facility] Gestational GTT 2 HR 157(H) 50-<155 mg/dL 02/08/2019 1:10 PM CDT [facility] Gestational GTT 3 HR 138 50-<140 mg/dL 02/08/2019 1:10 PM CDT [facility] Blood BLOOD SPECIMEN / Unknown Venipuncture / Unknown 02/08/2019 11:45 AM CDT 02/08/2019 8:56 AM CDT Marylin Obrien MD LAB - CHEMISTRY ORDE RABLES Performing Organization Address City/[facility]/ZIP Co de Phone Number [facility] [address] [place] [address] * CULTURE STREP B (02/08/2019 10:46 AM CDT) [facility] Culture Strep B Negative for beta-hemolytic Streptococcus Group B JIAN 02/11/2019 10:03 AM CDT [facility] Microbiology MISCELLANEOUS SAMPLES / Unknown Collection / Unknown 02/08/2019 10:46 AM CDT 02/08/2019 10:58 AM CDT Eileen Ivan MD LAB - MICROBIOLOG Y ORDERABLES [facility] [address] [place] [address], [facility] [phone] * GLUCOSE - POINT OF CARE (02/08/2019 8:32 AM CDT) [facility] Glucose WB/POC 91 70 - 106 mg/dL 02/08/2019 8:44 AM CDT [facility] Specimen Type Arterial/C apillary 02/08/2019 8:44 AM CDT [facility] Blood BLOOD SPECIMEN / Unknown 02/08/2019 8:32 AM CDT 02/08/2019 8:44 AM CDT Corinne Gregorio MD LAB - POINT OF CARE ORDERABLES Performing Organization Address City/State/[facility] Co de Phone Number [facility] [address] [place] [address] * SONOGRAM - COMPLETE (01/06/2019 1:28 PM CDT) Only the most recent of3 resultswithin the time period is included. Anatomical Region Laterality Modality Other 01/06/2019 1:28 PM CDT Narrative 01/06/2019 4:08 PM CDT [facility] PHONE: FAX: Pat. Name: MARIA NICOLE Pat. No: [id number] Study Date: 01/06/2019 1:28pm , Age: 02 1995, 23 Pregnancies: 1, Para 0 Height: 66 in Weight: 150 lb LMP: Unknown GA by Base: 30w1d POOL: 03/16/2019 GA by US: 29w5d POOL: 03/19/2019 GA Selected: 30w1d ([facility]) POOL: 03/16/2019 Referring MD: MD Vishnu, [facility] [employer] Advisor: Jazzy Grajeda RDMS CPT4: 74240 BMI: 24.21 Hist/Ind: Complete anatomy Growth 2018 Brain surgery/Stroke-Cavernomas 2000Cavernomas MEASUREMENTS & AGE GROWTH EVALUATION Measurement GA Range Srce %for GA Ratios ----- ---- ------- BPD 7.6 cm 30w2d (98w9l-51d1j) Hadl BPD 40% FL/BPD 0.75 (0.71 - 0.87) HC 27.7 cm 30w2d (24o7s-23o5y) Hadl HC 17% FL/AC 0.21 (0.20 - 0.24) AC 26.4 cm 30w4d (25s3o-50r0b) Hadl AC 55% HC/AC 1.05 (0.97 - 1.16) FL 5.7 cm 29w5d (67z0e-60m9u) Hadl FL 24% CI 0.80 (0.70 - 0.86) HL 5.1 cm 29w6d (32i8z-66o2u) Justus HL 45% GA for sonogram 29w5d (63b2h-96m7c) Weight Estimate: based on (BPD,HC,AC,FL) Hadlock Weight: 1536 gm (1312-1760gm) Had : 3lbs, 6oz Normal: 1595 gm (1196-1994gm) Had Wt% 39% for 30w1d Heart Rate: 159 bpm Amniotic Fluid Index: 15.6cm (09.0-23.5) Q1: 5.0cm Q2: 4.3cm Q3: 1.2cm Q4: 5.2cm EVAL, PLACENTA Presentation: cephalic Placenta: anterior Heart Rate: 159 bpm Amniotic Fluid Volume: normal Anatomy!Normal!Abnormal!Suboptimal!Prev. Seen!Comments Cranium ! ! ! ! x ! Mdl (CSP/Thal! ! ! ! x ! Ventricles ! ! ! ! x ! Choroid Plexu! ! ! ! x ! Cerebellum ! ! ! ! x ! Cisterna M. ! ! ! ! x ! Nuchal Fold ! ! ! ! x ! Profile ! ! ! ! x ! Nasal Bone ! ! ! ! x ! Lip ! ! ! ! x ! Spine ! ! ! ! x ! Lungs ! ! ! ! x ! 4 Chamber Hea! ! ! ! x ! LVOT ! ! ! ! x ! RVOT ! ! ! ! x ! 3 Vessel View! ! ! ! x ! Cross-over ! ! ! ! x ! Ductal Arch ! x ! ! ! ! Aortic Arch ! x ! ! ! ! Caval View ! ! ! ! x ! Situs ! ! ! ! x ! Diaphragm ! ! ! ! x ! Stomach ! x ! ! ! ! Bowel ! x ! ! ! ! Kidneys ! x ! ! ! ! Bladder ! x ! ! ! ! 3 Vessel Cord! ! ! ! x ! Cord In! ! ! ! x ! Upper Extremi! ! ! ! x ! Hands ! ! ! ! x ! Lower Extreme! ! ! ! x ! Feet ! ! ! ! x ! External Bela! ! ! ! x ! Placental Cor! ! ! ! x ! CLINICAL SUMMARY Study Number: 3 A single fetus is identified in cephalic presentation. The measurements today are consistent with appropriate growth compared to previous examination. The POOL selected is based on a prior ultrasound examination. The amniotic fluid volume is normal. The placenta is anterior. No major malformations are seen. IMPRESSION: Single, live, IUP at 30w1d. size consistent with established POOL. No sonographic signs of abnormality. RECOMMEND: Repeat ultrasound as clinically indicated. Thank you for allowing us the opportunity to care for your patient. Daisha Barriga MD <Electronic Signature> 01/06/2019 04:06pm Daisha Barriga MD [facility] ORDERABLES * (ABNORMAL) GLUCOSE CHALLENGE (12/23/2018 1:26 PM CDT) Glucose Challenge 153(H) 64 - 140 mg/dL 12/23/2018 2:35 PM CDT [facility] Glucose Challenge Time 12/23/2018 2:35 PM CDT [facility] Blood BLOOD SPECIMEN / Unknown Venipuncture / Unknown 12/23/2018 1:26 PM CDT 12/23/2018 1:40 PM CDT Jillian Fletcher MD LAB - CHEMISTRY AYAH ZAYAS Performing Organization Address [facility] Co de Phone Number [facility] [address] [place], [place] [phone] * SYPHILIS ANTIBODY CASCADING REFLEX (12/02/2018 1:33 PM CDT) Pathologist [facility] Treponema pallidum Antibody Non Reactive Non Reactive 12/02/2018 2:44 PM CDT [facility] Comment: No Laboratory evidence of syphilis infection. Note: Circulating antibodies may be low or undetectable in early infection. If recent exposure is suspected, re-draw sample in 2-4 weeks and repeat testing. Blood BLOOD SPECIMEN / Unknown Venipuncture / Unknown 12/02/2018 1:33 PM CDT 12/02/2018 1:59 PM CDT Marcelina Tapia MD LAB - SEROLOGY ORDER DELORES Performing Organization Address [facility] Co de Phone Number [facility] [address] [place] [phone] * HIV-1 HIV-2 ANTIBODY + HIV P24 AG PANEL (12/02/2018 1:33 PM CDT) Only the most recent of2 resultswithin the time period is included. HIV1/2 Ab + P24 Ag Non Reactive Non Reactive 12/02/2018 6:42 PM CDT [facility] Blood BLOOD SPECIMEN / Unknown Venipuncture / Unknown 12/02/2018 1:33 PM CDT 12/02/2018 1:59 PM CDT Narrative [facility] - 12/02/2018 6:42 PM CDT No Laboratory evidence of HIV infection. Marcelina Tapia MD LAB - CHEMISTRY AYHA ZAYAS [facility] [place] [address] * (ABNORMAL) URINALYSIS REFLEX MICROSCOPIC REFLEX CULTURE (12/02/2018 1:33 PM CDT) Pathologist [facility] Color UA Yellow Straw, Yellow 12/02/2018 2:11 PM CDT [facility] Clarity UA Slt Cloudy(A) Clear 12/02/2018 2:11 PM CDT [facility] Glucose UA Negative Negative 12/02/2018 2:11 PM CDT [facility] Bilirubin UA Negative Negative 12/02/2018 2:11 PM CDT [facility] Ketone UA Negative Negative 12/02/2018 2:11 PM CDT [facility] Specific [place]olia UA 1.016 1.005 - 1.030 12/02/2018 2:11 PM CDT [facility] Blood UA Negative Negative 12/02/2018 2:11 PM CDT [facility] pH UA 6.0 5.0 - 8.0 pH 12/02/2018 2:11 PM CDT [facility] Protein UA Negative Negative 12/02/2018 2:11 PM CDT [facility] Urobilinogen UA Negative Negative mg/dL 12/02/2018 2:11 PM CDT [facility] Nitrite UA Negative Negative 12/02/2018 2:11 PM CDT [facility] Leukocyte UA Negative Negative 12/02/2018 2:11 PM CDT [facility] Urine Microscopy Urine microscopy not indicated 12/02/2018 2:11 PM CDT [facility] Reflex Status Culture not indicated 12/02/2018 2:11 PM CDT [facility] Urine URINE SPECIMEN OBTAINED BY CLEAN CATCH PROCEDURE / Unknown Collection / Unknown 12/02/2018 1:33 PM CDT 12/02/2018 1:57 PM CDT Narrative [facility] - 12/02/2018 2:11 PM CDT Marcelina Tapia MD LAB - URINALYSIS ORD ERABLES Performing Organization Address [facility]/ZIP Co de Phone Number [facility] [address] [place] [phone] * TRICHOMONAS RAPID TEST (11/04/2018 2:42 PM CDT) Trichomonas Rapid Test Negative Negative 11/04/2018 3:11 PM CDT [facility] Microbiology VAGINAL SWAB / Unknown Collection / Unknown 11/04/2018 2:42 PM CDT 11/04/2018 2:56 PM CDT Eileen Wong MD LAB - MICROBI OLOGY ORDERABLES Performing Organization Address [facility] Co de Phone Number [facility] [address] [place] [phone] * CHLAMYDIA + GC AMPLIFIED PROBE (11/04/2018 2:42 PM CDT) Only the most recent of2 resultswithin the time period is included. Chlamydia Amplified Probe Negative Negative 11/05/2018 8:19 AM CDT [facility] GC Amplified Probe Negative Negative 11/05/2018 8:19 AM CDT [facility] Microbiology ENTIRE ENDOCERVIX / Unknown Collection / Unknown 11/04/2018 2:42 PM CDT 11/04/2018 2:56 PM CDT Narrative [facility] - 11/05/2018 8:19 AM CDT Results based on detection/no detection of ribosomal RNA by amplified method. Eileen Wong MD LAB - MICROBI OLOGY ORDERABLES Performing Organization Address City/[facility]/ZIP Co de Phone Number [facility] [address] [place] [address] [phone] * PROTHROMBIN [id number] PANEL (09/01/2018 4:37 PM CONDUIT MECHANIC) [facility] Factor II DNA Analysis Comment 09/08/2018 12:15 PM CONDUIT MECHANIC [facility] ([facility]) Comment: NEGATIVE No mutation identified. Comment: A point mutation ([id number]) in the factor II (prothrombin) gene is the second most common cause of inherited thrombophilia. The incidence of this mutation in the [place] population is about 2% and in the population it is approximately 0.5%. This mutation is rare in the and population. Being heterozygous for a prothrombin mutation increases the risk for developing venous thrombosis about 2 to 3 times above the general population risk. Being homozygous for the prothrombin gene mutation increases the relative risk for venous thrombosis further, although it is not yet known how much further the risk is increased. In women heterozygous for the prothrombin gene mutation, the use of estrogen containing oral contraceptives increases the relative risk of venous thrombosis about 16 times and the risk of developing cerebral thrombosis is also significantly increased. In the prothrombin gene mutation increases risk for venous thrombosis and may increase risk for stillbirth, placental abruption, pre-eclampsia and growth restriction. If the patient possesses two or more congenital or acquired thrombophilic risk factors, the risk for thrombosis may rise to more than the sum of the risk ratios for the individual mutations. This assay detects only the prothrombin [id number] mutation and does not measure genetic abnormalities elsewhere in the genome. Other thrombotic risk factors may be pursued through systematic clinical laboratory analysis. These factors include the R506Q (Leiden) mutation in the Factor V gene, plasma homocysteine levels, as well as testing for deficiencies of antithrombin III, protein C and protein S. Genetic Counselors are available for health care providers to discuss results at [phone] Methodology: DNA analysis of the Factor II gene was performed by PCR amplification followed by restriction analysis. The diagnostic sensitivity is >99% for both. All the tests must be combined with clinical information for the most accurate interpretation. Molecular-based testing is highly accurate, but as in any laboratory test, diagnostic errors may occur. This test was developed and its performance characteristics determined by [facility]. It has not been cleared or approved by the Food and Drug Administration. Shamika SR, et al. Blood. 1996; 88:0188-6004. Aisha SHEPPARD. Circulation. 2004; 110:e15-e18. Mary I, et al. Arterioscler Thromb Vasc Biol. 1999; 19:700-703. Wicho Smart, PhD, [facility] Geri Laureano, PhD, [facility] Leighann Chaudhary M.S., PhD, [facility] Norah Kinsey, PhD, [facility] Bibi Calderon, PhD, [facility] Joselito Emanuel, PhD, [facility] Blood BLOOD SPECIMEN / Unknown Venipuncture / Unknown 09/01/2018 4:37 PM CONDUIT MECHANIC 09/01/2018 4:43 PM CONDUIT MECHANIC [facility] ([facility]) - 09/08/2018 12:15 PM CONDUIT MECHANIC Performed at: [address] [place] [address] [id number] Electronic Warfare Specialist: Xavier Cohn MD, Phone: [phone] Eileen Wong MD LAB - COAGULA TION ORDERABLES [facility] ([facility]) [address] [place] [address] * FACTOR V LEIDEN MUTATION PANEL (09/01/2018 4:37 PM CONDUIT MECHANIC) [facility] Factor V Leiden Comment 9 5:10 PM CONDUIT MECHANIC [facility] ([facility]) Comment: Result: Negative (no mutation found) Factor V Leiden is a specific mutation (R506Q) in the factor V gene that is associated with an increased risk of venous thrombosis. Factor V Leiden is more resistant to inactivation by activated protein C. As a result, factor V persists in the circulation leading to a mild hyper- coagulable state. The Leiden mutation accounts for 90% - 95% of APC resistance. Factor V Leiden has been reported in patients with deep vein thrombosis, pulmonary embolus, central retinal vein occlusion, cerebral sinus thrombosis and hepatic vein thrombosis. Other risk factors to be considered in the workup for venous thrombosis include the [id number] mutation in the factor II (prothrombin) gene, protein S and C deficiency, and antithrombin deficiencies. Anticardiolipin antibody and lupus anticoagulant analysis may be appropriate for certain patients, as well as homocysteine levels. [facility] for information on how to order additional testing if desired. Genetic counselors are available for health care providers to discuss results at [phone] Methodology: DNA analysis of the Factor V gene was performed by allele-specific PCR. The diagnostic sensitivity and specificity is >99% for both. Molecular-based testing is highly accurate, but as in any laboratory test, diagnostic errors may occur. All test results must be combined with clinical information for the most accurate interpretation. This test was developed and its performance characteristics determined by [facility]. It has not been cleared or approved by the Food and Drug Administration. References: Garland Brandt (1995). Clin Lab Med 16:169-186. Wicho Smart, PhD, [facility] Geri Laureano, PhD, [facility] Lashawn OsmanS., PhD, [facility] Norah Kinsey, PhD, [facility] Bibi Calderon, PhD, [facility] Joselito Emanuel PhD, [facility] Blood BLOOD SPECIMEN / Unknown Venipuncture / Unknown 09/01/2018 4:37 PM CONDUIT MECHANIC 09/01/2018 4:43 PM CONDUIT MECHANIC Narrative [facility] ([facility]) - 09/07/2018 5:10 PM CONDUIT MECHANIC Performed at: [address] [place] [address] [id number] Electronic Warfare Specialist: Xavier Cohn MD, Phone: [phone] Eileen Wong MD LAB - COAGULA TION ORDERABLES [facility] ([facility]) [address] [place] [address] * CARDIOLIPIN ANTIBODY IGG/IGM PANEL (09/01/2018 4:37 PM CONDUIT MECHANIC) [facility] Cardiolipin Antibody IgG <9 0 - 14 GPL U/mL 09/03/2018 3:20 PM CONDUIT MECHANIC [facility] ([facility]) Comment: Negative: <15 Indeterminate: 15 - 20 Low-Med Positive: >20 - 80 High Positive: >80 Cardiolipin Antibody IgM 11 0 - 12 MPL U/mL 09/03/2018 3:20 PM CONDUIT MECHANIC [facility] ([facility]) Comment: Negative: <13 Indeterminate: 13 - 20 Low-Med Positive: >20 - 80 High Positive: >80 Blood BLOOD SPECIMEN / Unknown Venipuncture / Unknown 09/01/2018 4:37 PM CONDUIT MECHANIC 09/01/2018 4:43 PM CONDUIT MECHANIC Narrative [facility] ([facility]) - 09/03/2018 3:20 PM CONDUIT MECHANIC Performed at: [address] [place] [address] [id number] Electronic Warfare Specialist: Yrn Simpson PhD, Phone: [phone] Eileen Wong MD LAB - SEROLOG Y ORDERABLES [facility] ([facility]) [address] [place] [address] * RPR (09/01/2018 4:37 PM CONDUIT MECHANIC) Pathologist [facility] RPR Non Reactive Non Reactive 09/02/2018 8:28 AM CONDUIT MECHANIC [facility] Blood BLOOD SPECIMEN / Unknown Venipuncture / Unknown 09/01/2018 4:37 PM CONDUIT MECHANIC 09/01/2018 4:42 PM CONDUIT MECHANIC Eileen Wong MD LAB - ARMATURE BALANCER RY ORDERABLES [facility] [address] [place] [address] * BETA-2 GLYCOPROTEIN 1 ANTIBODY IGG/IGM PANEL (09/01/2018 4:37 PM CONDUIT MECHANIC) Beta-2 Glycoprotein I Antibody IgG <9 0 - 20 GPI IgG units 09/04/2018 5:16 AM CONDUIT MECHANIC [facility] ([facility]) Comment: The reference interval reflects a 3SD or 99th percentile interval, which is thought to represent a potentially clinically significant result in accordance with the International Consensus Statement on the classification criteria for definitive antiphospholipid syndrome (APS). J Thromb Haem 2006;4:295-306. Beta-2 Glycoprotein I Antibody IgM <9 0 - 32 GPI IgM units 09/04/2018 5:16 AM CONDUIT MECHANIC [facility] ([facility]) Comment: The reference interval reflects a 3SD or 99th percentile interval, which is thought to represent a potentially clinically significant result in accordance with the International Consensus Statement on the classification criteria for definitive antiphospholipid syndrome (APS). J Thromb Haem 2006;4:295-306. Blood BLOOD SPECIMEN / Unknown Venipuncture / Unknown 09/01/2018 4:37 PM CONDUIT MECHANIC 09/01/2018 4:43 PM CONDUIT MECHANIC Narrative [facility] ([facility]) - 09/04/2018 5:16 AM CONDUIT MECHANIC Performed at: - [facility] [id number] Electronic Warfare Specialist: Mary Jo Jonas MD, Phone: [phone] Eileen Wong MD LAB - ARMATURE BALANCER RY ORDERABLES [facility] ([facility]) [address] [place] [address] * PAP THINPREP (09/01/2018 4:36 PM CONDUIT MECHANIC) Diagnosis Comment 09/07/2018 4:19 PM CONDUIT MECHANIC [facility] ([facility]) Comment: NEGATIVE FOR INTRAEPITHELIAL LESION AND MALIGNANCY. THIS SPECIMEN WAS RESCREENED PART OF OUR MAINTENANCE SUPERVISOR ELECTRICAL PROGRAM. Specimen Adequacy Comment 019 4:19 PM CONDUIT MECHANIC [facility] ([facility]) Comment: Satisfactory for evaluation. Endocervical and/or squamous metaplastic cells (endocervical component) are present. Performed by Comment 09/07/2018 4:19 PM CONDUIT MECHANIC [facility] ([facility]) Comment:Syeda Ramirez Cytot echnologist ([facility]) QC Reviewed by Comment 09/07/2018 4:19 PM CONDUIT MECHANIC [facility] ([facility]) Comment:[facility] ([facility]) Comment . 09/07/2018 4:19 PM CONDUIT MECHANIC [facility] ([facility]) Note Comment 09/07/2018 4:19 PM CONDUIT MECHANIC [facility] ([facility]) Comment: The Pap smear is a screening test designed to aid in the detection of premalignant and malignant conditions of the uterine cervix. It is not a diagnostic procedure and should not be used as the sole means of detecting cervical cancer. Both false-positive and false-negative reports do occur. Pathology/Cytolo gy PART OF UTERINE CERVIX / Unknown Collection / Unknown 09/01/2018 4:36 PM CONDUIT MECHANIC 09/01/2018 4:45 PM CONDUIT MECHANIC Narrative [facility] ([facility]) - 09/07/2018 4:19 PM CONDUIT MECHANIC Performed at: - [address] [id number] Electronic Warfare Specialist: Jovanna Castro MD, Phone: [phone] Specimen Comment: Source.............Cervix Specimen Comment: LMP / Prev Treat...None Specimen Comment: Other.............. Specimen Comment: No. of containers..01 ThinPrep Vial Eileen Wong MD LAB - PATHOLO GY/CYTOLOGY ORDERABLES Performing Organization Address City/[facility]/ZIP Co de Phone Number [facility] ([facility]) [address] [place] [address] * TRICHOMONAS VAGINALIS AMPLIFIED PROBE (09/01/2018 4:36 PM CONDUIT MECHANIC) Pathologist [facility] Trichomonas vaginalis Amplified Probe Negative Negative 09/03/2018 7:19 AM CONDUIT MECHANIC [facility] MICROBIOLOGY Microbiology ENTIRE VAGINA / Unknown Collection / Unknown 09/01/2018 4:36 PM CONDUIT MECHANIC 09/01/2018 4:45 PM CONDUIT MECHANIC Narrative [facility]CRO[facility]OLOGY - 09/03/2018 7:19 AM CONDUIT MECHANIC Results based on detection/no detection of ribosomal RNA by amplified method. Eileen Wong MD LAB - MICROBI OLOGY ORDERABLES [facility] MICROBIOLOGY [address] [place] [address], [facility] [phone] * BASIC METABOLIC PANEL (CALCIUM TOTAL) (11/01/2017 4:01 AM CONDUIT MECHANIC) Only the most recent of5 resultswithin the time period is included. Pathologist [facility] BUN 12 7 - 26 mg/dL [facility] Creatinine 0.6 0.6 - 1.2 mg/dL [facility] Sodium 139 136 - 145 mmol/L [facility] Potassium 3.9 3.5 - 4.5 mmol/L [facility] Chloride 102 98 - 107 mmol/L [facility] CO2 28 22 - 29 mmol/L [facility] Glucose 112 70 - 115 mg/dL [facility] Calcium 9.2 8.4 - 10.2 mg/dL [facility] Anion Gap 13 8 - 18 [facility] BUN/Creatinine Ratio 20 7 - 23 [facility] Osmolality Calculated 289 270 - 300 mOsm/kg [facility] eGFR >60 >60 mL/min/1.7 3 m2 [facility] Blood specimen (specimen) BLOOD SPECIMEN / Unknown 11/01/2017 4:01 AM CONDUIT MECHANIC 11/01/2017 4:11 AM CONDUIT MECHANIC Aparna DUQUE LAB - CHEMISTRY ORDE RABLES Performing Organization Address [facility]/ZIP Co de Phone Number [address] [phone] * SPECIFIC GRAVITY URINE (10/30/2017 12:19 AM CONDUIT MECHANIC) Only the most recent of2 resultswithin the time period is included. Specific [place] UA 1.012 1.001 - 1.030 [facility] Urine specimen (specimen) 10/30/2017 12:19 AM CONDUIT MECHANIC 10/30/2017 12:27 AM CONDUIT MECHANIC Addison Campos MD LAB - URINALYSIS ORD ERABLES [address] [phone] * OSMOLALITY URINE (10/30/2017 12:19 AM CONDUIT MECHANIC) Only the most recent of2 resultswithin the time period is included. Osmolality Urine 341 50 - 1,200 mOsm/kg [facility] Urine specimen (specimen) URINE / Unknown 10/30/2017 12:19 AM CONDUIT MECHANIC 10/30/2017 12:27 AM CONDUIT MECHANIC Addison Campos MD LAB - URINE CHEMISTR Y ORDERABLES Performing Organization Address [facility] Co de Phone Number [address] [phone] * PHOSPHORUS BLOOD (10/30/2017 12:19 AM CONDUIT MECHANIC) Only the most recent of3 resultswithin the time period is included. Phosphorus 3.3 2.3 - 4.7 mg/dL [facility] Blood specimen (specimen) BLOOD SPECIMEN / Unknown 10/30/2017 12:19 AM CONDUIT MECHANIC 10/30/2017 12:33 AM CONDUIT MECHANIC Addison Campos MD LAB - CHEMISTRY AYAH ZAYAS Performing Organization Address [facility] Co de Phone Number [address] [phone] * MAGNESIUM BLOOD (10/30/2017 12:19 AM CONDUIT MECHANIC) Only the most recent of3 resultswithin the time period is included. Pathologist [facility] Magnesium 2.2 1.6 - 2.6 mg/dL [facility] Blood specimen (specimen) BLOOD SPECIMEN / Unknown 10/30/2017 12:19 AM CONDUIT MECHANIC 10/30/2017 12:33 AM CONDUIT MECHANIC Addison Campos MD LAB - CHEMISTRY AYAH ZAYAS Performing Organization Address [facility] Co de Phone Number [address] [phone] * (ABNORMAL) DIFFERENTIAL MANUAL (10/28/2017 11:38 PM CONDUIT MECHANIC) WBC (corrected for NRBC) 18.9 10 3/uL [facility] Total Cell Count 100 [facility] Neutrophils Absolute Manual 17.01(H) 1.60 - 7.00 10 3/uL [facility] Comment:(BANDS+SEGS) x WBC = NEUT # (ANC) Lymphocyte Absolute Manual 0.76(L) 0.80 - 2.90 10 3/uL [facility] Monocytes Absolute Manual 1.13(H) 0.14 - 0.66 10 3/uL [facility] Band % Manual 1 0 - 10 % [facility] Neutrophil % Manual 89(H) 30 - 60 % [facility] Lymphocyte % Manual 4(L) 20 - 45 % [facility] Monocytes % Manual 6 2 - 10 % [facility] Platelet Estimate Adequate Adequate [facility] RBC Morphology Normal [facility] Blood specimen (specimen) BLOOD SPECIMEN / Unknown 10/28/2017 11:38 PM CONDUIT MECHANIC 10/28/2017 11:55 PM CONDUIT MECHANIC Addison Campos MD LAB - HEMATOLOGY ORD ERABLES [address] [phone] * SODIUM BLOOD (10/28/2017 10:40 PM CONDUIT MECHANIC) Sodium 141 136 - 145 mmol/L [facility] Blood specimen (specimen) BLOOD SPECIMEN / Unknown 10/28/2017 10:40 PM CONDUIT MECHANIC 10/28/2017 10:52 PM CONDUIT MECHANIC Addison Campos MD LAB - CHEMISTRY ORDE RABLES Performing Organization Address City/[facility] Co de Phone Number [address] [phone] * CT HEAD WO CONTRAST (10/27/2017 2:11 PM CONDUIT MECHANIC) Anatomical Region Laterality Modality Head Other Impressions 10/27/2017 3:46 PM CONDUIT MECHANIC IMPRESSION: 1. Status post right pterional craniotomy for resection of a cavernoma with postsurgical changes, as described above. 2. Hyperdensity in the medial right temporal lobe along the inferior aspect of the previously described cavernoma (on same day head CT/CTA) which could represent hemorrhage or residual cavernoma. Brain MRI could be considered in the following months after resolution of postoperative changes in the surgical bed. This report was approved by Sagar Hampton M.D. on 10/27/2017 2:49 PM . IDr. JOSE M.D. have personally reviewed and interpreted this examination/study. This report was electronically signed by JOSE CHRISTIANSON M.D. on 10/27/2017 3:46 PM . Narrative 10/27/2017 3:46 PM CONDUIT MECHANIC EXAMINATION: Computed tomography (CT) of the head without contrast HISTORY: Cerebral cavernoma TECHNIQUE: CT of the head was performed without contrast according to standard protocol. FINDINGS: Comparison is made with same day CT/CTA of the head The patient is status post right pterional craniotomy for resection of a cavernoma with small volume hemorrhage and air at the surgical site as well as packing surgical material subjacent to the right craniotomy site. Hyperdensity is seen in the medial right temporal lobe along the inferior aspect of the previously described cavernoma (on same day head CT/CTA) which could represent hemorrhage with residual cavernoma. Small volume subcutaneous fluid mixed with air likely due to recent surgical intervention, is seen subjacent to the right craniotomy extending inferiorly into the right temporal fossa and right periorbital region. Nfawl-ie-hemtcvmv volume pneumocephalus is seen along both anterior frontal and anterior temporal convexities. Tiny foci of air are seen along both superior cerebral convexities. Surgical clip with significant beam hardening artifacts is now seen at the site of previously described cavernoma. The ventricles are nondilated. The basilar cisterns are patent. No mass effect or midline shift is seen. The visualized portions of the orbits, paranasal sinuses, and mastoids appear normal. Procedure Note Jose Christianson MD - 11/26/2017 EXAMINATION: Computed tomography (CT) of the head without contrast HISTORY: Cerebral cavernoma TECHNIQUE: CT of the head was performed without contrast according tostandard protocol. FINDINGS: Comparison is made with same day CT/CTA of the head The patient is status post right pterional craniotomy for resection of acavernoma with small volume hemorrhage and air at the surgical site aswell as packing surgical material subjacent to the right craniotomy site.Hyperdensity is seen in the medial right temporal lobe along the inferior aspect of the previously describedcavernoma (on same day head CT/CTA) which could represent hemorrhage withresidual cavernoma. Small volume subcutaneous fluid mixed with air likelydue to recent surgical intervention, is seen subjacent to the right craniotomy extendinginferiorly into the right temporal fossa and right periorbital region.Pthzu-xd-nqlhvyue volume pneumocephalus is seen along both anteriorfrontal and anterior temporal convexities. Tiny foci of air are seen along both superior cerebral convexities. Surgicalclip with significant beam hardening artifacts is now seen at the site ofpreviously described cavernoma. The ventricles are nondilated. The basilarcisterns are patent. No mass effect or midline shift is seen. The visualized portions of the orbits,paranasal sinuses, and mastoids appear normal. IMPRESSION IMPRESSION: 1. Status post right pterional craniotomy for resection of a cavernomawith postsurgical changes, as described above. 2. Hyperdensity in the medial right temporal lobe along the inferioraspect of the previously described cavernoma (on same day head CT/CTA)which could represent hemorrhage or residual cavernoma. Brain MRI could beconsidered in the following months after resolution of postoperative changes in the surgical bed. This report was approved by Sagar Hampton M.D. on 10/27/2017 2:49 PM . I, Dr. JOSE CHRISTIANSON M.D. have personally reviewed and interpreted thisexamination/study. This report was electronically signed by JOSE CHRISTIANSON M.D. on 10/27/20173:46 PM . Addison Campos MD CT ORDERABLES * PATHOLOGY TISSUE (10/27/2017 11:58 AM CONDUIT MECHANIC) Surgical Pathology Tissue ACCESSION No: [id number] CLINICAL HISTORY: Cavernoma. FINAL DIAGNOSIS: Brain, mass, cavernoma , excision: - Consistent with cavernous malformation MICROSCOPIC DESCRIPTION AND COMMENT: Microscopic examination reveals closely-set, thin-walled vessels surrounded by reactive glial tissue. Abundant hemosiderin and foamy macrophages are identified. There is hyalinization of some of the vessels. These findings are consistent with a cavernous malformation. There is no evidence of malignancy. KS/STEFANIA/debk GROSS DESCRIPTION: The specimen is received fixed in formalin in one container labeled with the patient's name, Maria Figueredo, and cavernoma mass for perm , and consists of two irregularly-shaped portions of rubbery, pink-marks to brown-marks tissue with an aggregate measurement of 1.5 x 1.3 x 0.8 cm. The specimen is serially sectioned and submitted entirely in cassette A1. VA/edk The performance characteristics of all immunohistochemical and indirect immunofluorescence stains (if any) cited in this report were determined by the Histopathology Laboratory of [facility]. Some of these tests were developed by our own laboratory and have not been cleared or approved by the US Food and Drug Administration. The FDA does not require this test to go through premarket FDA review. These tests are used for clinical purposes. They should not be regarded as investigational or for research. This laboratory is certified under the Clinical Laboratory Improvement Amendments (CLIA) as qualified to perform high complexity clinical laboratory testing. This case has been personally reviewed and interpreted by the attending (teaching) pathologist. Final Diagnosis performed by Vandana Partida MD. Electronically signed 10/28/2017 [facility] Resection with Tumor ENTIRE BRAIN / Unknown 10/27/2017 11:58 AM CONDUIT MECHANIC 10/27/2017 2:16 PM CONDUIT MECHANIC Narrative [facility] - 10/28/2017 9:20 PM CONDUIT MECHANIC Pre-op diagnosis: cavernoma Addison Campos MD LAB - PATHOLOGY/CYTO LOGY ORDERABLES Performing Organization Address [facility]/State/[facility] Co de Phone Number [facility] [address] [phone] * (ABNORMAL) BLOOD GASES ART COMPLETE [facility] OR (10/27/2017 9:04 AM CONDUIT MECHANIC) pH Arterial 7.24(L) 7.35 - 7.45 [facility] pCO2 Arterial 59(H) 35 - 45 mmHg [facility] pO2 Arterial 347(H) 82 - 106 mmHg [facility] HCO3 Arterial 24.8 22.0 - 26.0 mmol/L [facility] TCO2 Arterial 26.6 25.0 - 29.0 mmol/L [facility] Base Excess Arterial -3.4(L) -2.0 - 2.0 mmol/L [facility] Hemoglobin Arterial 12.5 12.0 - 15.5 g/dL [facility] Oxyhemoglobin Arterial 98.1 95.0 - 100.0 % [facility] Carboxyhemoglobin 0.3 0.0 - 3.0 % [facility] Methemoglobin 0.8 0.0 - 2.0 % [facility] FI O2 Arterial 80.0 % [facility] Ionized Calcium Whole Blood 1.19 mmol/L [facility] Adjusted Ionized Calcium 1.11(L) 1.19 - 1.34 mmol/L [facility] Sodium Whole Blood 137 135 - 145 mmol/L [facility] Potassium Whole Blood 3.5 3.5 - 5.5 mmol/L [facility] Chloride Whole Blood 108 101 - 111 mmol/L [facility] Glucose Whole Blood 146(H) 70 - 110 mg/dL [facility] Lactic Acid Whole Blood 1.3 0.5 - 3.4 mmol/L [facility] Blood specimen (specimen) 10/27/2017 9:04 AM CONDUIT MECHANIC 10/27/2017 9:15 AM CONDUIT MECHANIC Ralph Tai MD LAB - BLOOD GASES OR DERABLES Performing Organization Address City/State/[facility] Co de Phone Number [address] [phone] * CT ANGIO BRAIN STEREOTACTIC (10/27/2017 7:24 AM CONDUIT MECHANIC) Anatomical Region Laterality Modality Head Other Impressions 10/27/2017 11:50 AM CONDUIT MECHANIC IMPRESSION: 1. Cavernous malformation centered between the posterior right lentiform nucleus, inferior right thalamus, and right subinsular region with intralesional calcifications. 2. Associated developmental venous anomaly draining into the right basal vein of Patti circles around the inferior and superior margins of the cavernous malformation, better visualized on the previous brain MRI. 3. No aneurysms, vascular occlusions or intracranial stenosis. This report was approved by Sagar Hampton M.D. on 10/27/2017 11:47 AM . IDr. JOSE M.D. have personally reviewed and interpreted this examination/study. This report was electronically signed by JOSE CHRISTIANSON M.D. on 10/27/2017 11:50 AM . Narrative 10/27/2017 11:50 AM CONDUIT MECHANIC EXAMINATION: Computed tomographic (CT) angiography of the head without and with contrast HISTORY: 21-year-old female with cerebral cavernoma TECHNIQUE: CT of the head was performed without contrast according to stereotactic protocol. Then CT angiography of the head was obtained after the uneventful administration of 50 mL Omnipaque 350 intravenous contrast. Three dimensional postprocessing was performed by the technologist and sent to the workstation for review. FINDINGS: Comparison is made with brain MRI from 10/16/2017 Non-angiographic findings: Fiducial markers are present along the frontal scalp, retroauricular regions and cheeks stereotactic radiosurgery. The patient is status post right pterional craniotomy with focal area of encephalomalacia in the posterior right frontal lobe. The ventricles are of normal size, shape, and morphology. The basilar cisterns are patent. No mass effect or midline shift is seen. The patient known cavernous malformation centered between the posterior right lentiform nucleus, inferior right thalamus, and right subinsular region is again seen with intralesional calcifications. Angiographic findings: The distal internal carotid arteries appear normal. The anterior and middle cerebral arteries appear normal. The distal vertebral arteries appear normal. The basilar artery and posterior cerebral arteries appear normal. No aneurysms, vascular occlusions, or intracranial stenoses are identified. A developmental venous anomaly draining into the right basal vein of Patit circles around the inferior and superior margins of the cavernous malformation. Procedure Note Jose Christianson MD - 11/26/2017 EXAMINATION: Computed tomographic (CT) angiography of the head without andwith contrast HISTORY: 21-year-old female with cerebral cavernoma TECHNIQUE: CT of the head was performed without contrast according tostereotactic protocol. Then CT angiography of the head was obtained afterthe uneventful administration of 50 mL Omnipaque 350 intravenous contrast.Three dimensional postprocessing was performed by the technologist and sent to the workstation forreview. FINDINGS: Comparison is made with brain MRI from 10/16/2017 Non-angiographic findings: Fiducial markers are present along the frontal scalp, retroauricularregions and cheeks stereotactic radiosurgery. The patient is status post right pterional craniotomy with focal area ofencephalomalacia in the posterior right frontal lobe. The ventricles areof normal size, shape, and morphology. The basilar cisterns are patent. Nomass effect or midline shift is seen. The patient known cavernous malformation centered between theposterior right lentiform nucleus, inferior right thalamus, and rightsubinsular region is again seen with intralesional calcifications. Angiographic findings: The distal internal carotid arteries appear normal. The anterior andmiddle cerebral arteries appear normal. The distal vertebral arteriesappear normal. The basilar artery and posterior cerebral arteries appearnormal. No aneurysms, vascular occlusions, or intracranial stenoses are identified. A developmental venous anomalydraining into the right basal vein of Patti circles around theinferior and superior margins of the cavernous malformation. IMPRESSION IMPRESSION: 1. Cavernous malformation centered between the posterior right lentiformnucleus, inferior right thalamus, and right subinsular region withintralesional calcifications. 2. Associated developmental venous anomaly draining into the right basalvein of Patti circles around the inferior and superior margins of thecavernous malformation, better visualized on the previous brain MRI. 3. No aneurysms, vascular occlusions or intracranial stenosis. This report was approved by Sagar Hampton M.D. on 10/27/2017 11:47 AM. I, Dr. JOSE CHRISTIANSON M.D. have personally reviewed and interpreted thisexamination/study. This report was electronically signed by JOSE CHRISTIANSON M.D. on 10/27/201711:50 AM . Addison Campos MD CT ORDERABLES * CROSSMATCH RBC LEUKOREDUCED (10/27/2017 7:06 AM CONDUIT MECHANIC) 10/27/2017 7:06 AM CONDUIT MECHANIC 10/27/2017 7:06 AM CONDUIT MECHANIC Narrative [facility] - 10/27/2017 7:06 AM CONDUIT MECHANIC # of Units->4 Addison Campos MD LAB - BLOOD BANK ORD ERABLES [facility] [address] [place] [address], [facility] * PREPARE FFP UNIT(S) (10/27/2017 7:06 AM CONDUIT MECHANIC) Unit FFP N/A [facility]LO[facility] PRODUCTS (BEAKER) 10/27/2017 7:06 AM CONDUIT MECHANIC 10/27/2017 7:06 AM CONDUIT MECHANIC Narrative [facility] (BEAKER) - 10/27/2017 7:06 AM CONDUIT MECHANIC # of Units->2 Addison Campos MD LAB - BLOOD BANK ORD ERABLES Performing Organization Address [facility] Co de Phone Number [facility] (BEAKER) * PTT [facility] (10/16/2017 2:06 PM CONDUIT MECHANIC) APTT 28.6 23.0 - 38.4 Seconds [facility] Comment:Suggested therapeuti c range for full dose I.V. heparin therapy for venous thromboembolism is 66.0-91.0 seconds. Blood specimen (specimen) BLOOD SPECIMEN / Unknown 10/16/2017 2:06 PM CONDUIT MECHANIC 10/16/2017 2:29 PM CONDUIT MECHANIC Narrative [facility] - 10/16/2017 2:40 PM CONDUIT MECHANIC Is patient on Heparin, Argatroban or Dabigatran?->N Addison Campos MD LAB - COAGULATION OR DERABLES Performing Organization Address [facility] Co de Phone Number [address] [phone] * PT-INR [facility] (10/16/2017 2:06 PM CONDUIT MECHANIC) PT 13.6 12.1 - 14.8 Seconds [facility] INR 1.1 See Comment [facility] Comment: Suggested therapeutic range for low-intensity coumadin therapy for venous thromboembolism prophylaxis is an INR of 2.0-3.0. For high risk patients (Mitral Valve Prosthesis, Atrial Fibrillation, history of TIA/stroke), suggested prophylactic therapeutic range is an INR of 2.5-3.5. Blood specimen (specimen) BLOOD SPECIMEN / Unknown 10/16/2017 2:06 PM CONDUIT MECHANIC 10/16/2017 2:29 PM CONDUIT MECHANIC Narrative [facility] - 10/16/2017 2:40 PM CONDUIT MECHANIC Is patient on Heparin, Argatroban or Dabigatran?->N Addison Campos MD LAB - COAGULATION OR DERABLES Performing Organization Address [facility] Co de Phone Number [address] [phone] * HIV-1 HIV-2 ANTIGEN/ANTIBODY (10/16/2017 2:06 PM CONDUIT MECHANIC) HIV Antigen/Antibod y 1 & 2 Non-reacti ve Non-react irineo [facility] Comment: Neither HIV-1 p24 Antigen nor HIV-1/HIV-2 Antibodies are detected. Blood specimen (specimen) BLOOD SPECIMEN / Unknown 10/16/2017 2:06 PM CONDUIT MECHANIC 10/16/2017 2:29 PM CONDUIT MECHANIC Addison Campos MD LAB - HEMATOLOGY ORD ERABLES [facility] [address] [phone] * COMPREHENSIVE METABOLIC PANEL (10/16/2017 2:06 PM CONDUIT MECHANIC) BUN 14 7 - 26 mg/dL [facility] Creatinine 0.7 0.6 - 1.2 mg/dL [facility] Sodium 140 136 - 145 mmol/L [facility] Potassium 3.9 3.5 - 4.5 mmol/L [facility] Chloride 103 98 - 107 mmol/L [facility] CO2 26 22 - 29 mmol/L [facility] Glucose 81 70 - 115 mg/dL [facility] Calcium 9.6 8.4 - 10.2 mg/dL [facility] Protein Total 7.7 6.0 - 8.3 g/dL [facility] Albumin 4.2 3.4 - 5.0 g/dL [facility] Bilirubin Total 0.8 0.2 - 1.2 mg/dL [facility] Alkaline Phosphatase 82 40 - 150 Units/L [facility] ALT 20 0 - 55 Units/L [facility] AST 21 5 - 34 Units/L [facility] Anion Gap 15 8 - 18 [facility] BUN/Creatinine Ratio 20 7 - 23 [facility] Osmolality Calculated 290 270 - 300 mOsm/kg [facility] Albumin/Globulin Ratio 1.2 1.1 - 2.3 [facility] eGFR >60 >60 mL/min/1.7 3 m2 [facility] Blood specimen (specimen) BLOOD SPECIMEN / Unknown 10/16/2017 2:06 PM CONDUIT MECHANIC 10/16/2017 2:29 PM CONDUIT MECHANIC Addison Campos MD LAB - CHEMISTRY AYAH ZAYAS Performing Organization Address [facility] Co de Phone Number [address] [phone] * HEPATITIS SCREEN ACUTE (10/16/2017 2:06 PM CONDUIT MECHANIC) Hepatitis A Virus Antibody IgM Non-react [facility] Hepatitis B Virus Surface Antigen Non-react [facility] Hepatitis B Core Virus Antibody IgM Non-react [facility] Hepatitis C Antibody Non-react [facility] Comment: Hepatitis C Antibody screen indicates no serologic evidence of past or current infection with Hepatitis C Virus. Patients with unexplained liver disease who are immunocompromised or suspected of having acute Hepatitis C infection may benefit from Nucleic Acid Test (ANTOINE) for Hepatitis C Viral RNA to confirm Hepatitis C status. Blood specimen (specimen) BLOOD SPECIMEN / Unknown 10/16/2017 2:06 PM CONDUIT MECHANIC 10/16/2017 2:29 PM CONDUIT MECHANIC Addison Campos MD LAB - CHEMISTRY AYAH ZAYAS Performing Organization Address [facility] Co de Phone Number [address] [phone] * EKG 12-LEAD (10/16/2017 12:00 AM CONDUIT MECHANIC) 10/16/2017 Walt Holder MD ECG ORDERABLES Performing Organization Address City/[facility]/ZIP Co de Phone Number [facility] * MRI BRAIN FUNCTIONAL (05/22/2016 3:35 PM CDT) Anatomical Region Laterality Modality Head Other Impressions 05/23/2016 12:14 PM CDT IMPRESSION: 1. Cavernous malformation centered between the posterior right putamen, inferior right thalamus, right temporal stem, and right subinsular white matter without evidence of recent interval bleeding. An associated developmental venous anomaly circles around the anterior, lateral and superior margins of the cavernous malformation and appears to drain the right frontal centrum semiovale. The right corticospinal tracts are immediately medial to the cavernous confirmation. On functional imaging, language activation is seen on the left and sensorimotor activation is seen along the central sulcus bilaterally as described above. 2. Smaller cavernous malformation between the superior margin of the left thalamus and the posterior body of the left lateral ventricle as well as likely additional tiny cavernous malformations in the right frontal and the right temporal lobes without evidence of recent interval bleeding. This report was approved by Alfredo Miller on 05/23/2016 12:07 PM . I, Dr. NATHALIA REILYL M.D. have personally reviewed and interpreted this examination/study. This report was electronically signed by NATHALIA REILLY M.D. on 05/23/2016 12:14 PM . Narrative 05/23/2016 12:14 PM CDT EXAMINATION: 1. Magnetic resonance imaging (MRI) of the brain without and with contrast 2. Functional magnetic resonance imaging (fMRI) of the brain HISTORY: 20-year-old female with cerebral cavernoma TECHNIQUE: MRI of the brain was performed prior to and following the uneventful administration of 7 mL Gadavist intravenous gadolinium contrast according to a tumor protocol. fMRI of the brain was performed without contrast utilizing blood oxygen level dependent (BOLD) imaging using a word generation paradigm (language) and finger tapping paradigm (sensorimotor). Diffusion tensor imaging was also performed. Postprocessing was performed by the technologist on an independent workstation, fused to three dimensional T1 weighted images for anatomic localization, and submitted for review. FINDINGS: Comparison made to outside institution MR brain dated 12/13/2015. Brain- A heterogeneous T2 hyperintense lesion with popcorn appearance and a hemosiderin rim which blooms on the sensitive sequence straddles the junction between the posterior right putamen, inferior right thalamus, temporal stem and subinsular white matter. This is consistent with a cavernous malformation and measures 1.4 cm CC by 1.3 cm TV (image 16 series 10) right 1.8 cm AP (image 11 series 9). There are no signs of recent interval bleeding. Hemosiderin deposition is seen along the insular margin of the resection cavity. An associated developmental venous anomaly draining into the right basal vein of Patti circles around the inferior, lateral, and superior margins of the cavernous malformation and appears to drain the right frontal centrum semiovale. A 4 mm cavernous malformation between the superior margin of the left thalamus and the posterior body of the left lateral ventricle is also seen. There may be an additional tiny cavernous malformation in the right frontal lobe (image 48 series 7) and the right temporal lobe (image 24 series 7). No evidence of acute cerebral infarction is seen. The ventricles are of normal size, shape, and morphology. No midline shift is seen. No enhancing lesions are identified. The corpus callosum and sella appear normal. The posterior fossa, brainstem, and craniocervical junction appear normal. The visualized portions of the orbits, paranasal sinuses, and mastoids appear normal. Normal flow voids are demonstrated in the carotid arteries and basilar artery. The patient is status post a right pterional craniotomy. The visualized cervical spine appear normal. Functional- Fiber tracking: The corticospinal tracts are immediately medial to the cavernous malformation. Language paradigm: There is task based activation in the left frontal lobe above the sylvian fissure in the expected position of probe is area and task based activation in the left parietal lobe immediately posterior to the sylvian fissure in the expected position of Wernicke's area. There is task based activation in the anterior margin of the supplementary motor area in the expected location of the supplementary language area. Sensorimotor paradigm: There is task based activation along the central sulcus bilaterally in the expected location of the sensorimotor strip. Procedure Note Nathalia Reilly MD - 11/22/2017 EXAMINATION: 1. Magnetic resonance imaging (MRI) of the brain without and withcontrast 2. Functional magnetic resonance imaging (fMRI) of the brain HISTORY: 20-year-old female with cerebral cavernoma TECHNIQUE: MRI of the brain was performed prior to and following theuneventful administration of 7 mL Gadavist intravenous gadolinium contrastaccording to a tumor protocol. fMRI of the brain was performed withoutcontrast utilizing blood oxygen level dependent (BOLD) imaging using a word generation paradigm (language) andfinger tapping paradigm (sensorimotor). Diffusion tensor imaging was alsoperformed. Postprocessing was performed by the technologist on anindependent workstation, fused to three dimensional T1 weighted images for anatomic localization, and submittedfor review. FINDINGS: Comparison made to outside institution MR brain date12/13/2015. Brain- A heterogeneous T2 hyperintense lesion with popcorn appearance and ahemosiderin rim which blooms on the sensitive sequence straddles thejunction between the posterior right putamen, inferior right thalamus,temporal stem and subinsular white matter. This is consistent with a cavernous malformation and measures 1.4 cm CC by1.3 cm TV (image 16 series 10) right 1.8 cm AP (image 11 series 9). Thereare no signs of recent interval bleeding. Hemosiderin deposition is seenalong the insular margin of the resection cavity. An associated developmental venous anomaly draining intothe right basal vein of Patti circles around the inferior, lateral,and superior margins of the cavernous malformation and appears to drainthe right frontal centrum semiovale. A 4 mm cavernous malformation between the superior margin ofthe left thalamus and the posterior body of the left lateral ventricle isalso seen. There may be an additional tiny cavernous malformation in theright frontal lobe (image 48 series 7) and the right temporal lobe (image 24 series 7). No evidence of acute cerebral infarction is seen. The ventricles are ofnormal size, shape, and morphology. No midline shift is seen. No enhancinglesions are identified. The corpus callosum and sella appear normal. Theposterior fossa, brainstem, and craniocervical junction appear normal. The visualized portions of the orbits, paranasal sinuses, and mastoidsappear normal. Normal flow voids are demonstrated in the carotid arteriesand basilar artery. The patient is status post a right pterionalcraniotomy. The visualized cervical spine appear normal. Functional- Fiber tracking: The corticospinal tracts are immediately medial to thecavernous malformation. Language paradigm: There is task based activation in the left frontal lobeabove the sylvian fissure in the expected position of probe is area andtask based activation in the left parietal lobe immediately posterior tothe sylvian fissure in the expected position of Wernicke's area. There is task based activation inthe anterior margin of the supplementary motor area in the expectedlocation of the supplementary language area. Sensorimotor paradigm: There is task based activation along the centralsulcus bilaterally in the expected location of the sensorimotor strip. IMPRESSION IMPRESSION: 1. 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 An associateddevelopmental venous anomaly circles around the anterior, lateral and superior margins of the cavernousmalformation and appears to drain the right frontal centrum semiovale. Theright corticospinal tracts are immediately medial to the cavernousconfirmation. On functional imaging, language activation is seen on the left and sensorimotor activation is seen alongthe central sulcus bilaterally as described above. 2. Smaller cavernous malformation between the superior margin of the leftthalamus and the posterior body of the left lateral ventricle as well aslikely additional tiny cavernous malformations in the right frontal andthe right temporal lobes without evidence of recent interval bleeding. This report was approved by Alfredo Miller on 05/23/2016 12:07 PM . I, Dr. NATHALIA REILLY M.D. have personally reviewed and interpreted thisexamination/study. This report was electronically signed by NATHALIA REILLY M.D. on 05/23/201612:14 PM . Pancho Frost MD MR ORDERABLES * CULTURE URINE (10/07/2013 9:50 AM CONDUIT MECHANIC) Culture Urine LESS THAN 10,000 CFU/ML OF NORMAL UROGENITAL/ SKIN ELA. LESS THAN 10,000 CFU/ML OF NORMAL FECAL ELA. [facility] Culture Results [facility] Urine specimen (specimen) 10/07/2013 9:50 AM CONDUIT MECHANIC 10/08/2013 9:36 AM CONDUIT MECHANIC Demetrio Jaramillo MD LAB - MICROBIOLOGY O RDERABLES [address] [phone] * GROSS + MICRO EXAM (11/27/2006 2:14 PM CDT) Result CASE NUMBER [id number] [facility] PATH REPORT Comment: ORDERING PHYSICIAN ANUJ GARZON SPECIMEN TYPE Lymph Node-Left Neck CLINICAL HISTORY The patient is a 11-year-old girl with a left neck mass (lymph node) who underwent excisional biopsy of the same. GROSS DESCRIPTION The specimen labeled with the patient's name and left neck lymph node, to exclude lymphoma is received fresh for gross and microscopic examination and consists of a 1.5 x 1 x 0.6 cm oval, well-circumscribed, pink-marks lymph node. Cut surface reveals homogeneous yellow-marks lymphoid tissue. A portion of the specimen is saved for possible flow cytometric analysis. A portion of the specimen is saved for possible karyotypic analysis. A portion of the specimen is submitted for AFB, fungal, and routine culture. The remainder of the specimen is submitted in cassette A . (CT/ld) MICROSCOPIC DESCRIPTION A) 1 H/E Sections of tissue identified as left neck lymph node show lymphoid tissue with adjacent fibrovascular and adipose tissue, the latter including aggregate clusters of brown fat. There are numerous cortical and subcortical primary and secondary lymphoid follicles, the latter with variably-sized germinal centers and numerous tingible-body macrophages with surrounding polar mantle zones. Neither granulomata nor acute inflammation are identified. DIAGNOSIS DIAGNOSIS LYMPH NODE OF LEFT NECK, EXCISION - REACTIVE LYMPHOID HYPERPLASIA. This case has been personally reviewed and interpreted by the attending (teaching) pathologist. Safety Professional PEDRITO CRUMP RESIDENT IN PATHOLOG Fredi Velazquez M.D. PATHOLOGIST Lakeshia Wyman M.D. ELECTRONICALLY RADHALAKESHIA THACKER MISCELLANEOUS SAMPLES / Unknown 11/27/2006 2:14 PM CDT 11/27/2006 3:15 PM CDT Historical Provider MD LAB - PATHOLOGY/C YTOLOGY ORDERABLES [facility] PATH REPORT Care Teams Senior Etl Developer Relationship Specialty Start Date End Date Ab Riggs APRN-ALBERTA [address] [place] [id number] PCP - General Nurse Practitioner Family 04/22/24
--- OUTSIDE RECORDS SUMMARY | 2024-10-07 16:04 | XMS_ITS | Clinical Summary ---
Author Organization [facility] Address [address] [place] [address] Care Team Providers Care Supervisor Correspondence Section Name Role Phone Ab Riggs MARGARITA-STAFF NURSE ICU RESOURCE TEAM Primary Care Provider [phone] Source Comments [facility],non-owned Affiliates and Associated Physician Practices is amultiple site organization consisting of ambulatory clinics and hospital sitesin [place], [place], [place] and [place]. This disclosure is being madepursuant to the Care Everywhere program and may not contain all information available regarding this patient. Last updated 18.[facility] Allergies No known active allergies Medications * Be aware that medications may not be up to date on this document. Alwaysverify current medications with the patient. Medication Sig Dispensed Refills Start Date End Date Status cyclobenzaprine (Flexeril) 5 MG tablet TAKE 1 TO 2 TABLETS BY MOUTH THREE TIMES DAILY NEEDED FOR MUSCLE SPASM 03/25/2023 Active azelastine (Optivar) 0.05 % ophthalmic solution 05/26/2023 Active fluticasone propionate (Flonase) 50 MCG/ACT nasal spray SHAKE LIQUID AND USE 1 SPRAY IN EACH NOSTRIL EVERY DAY 01/14/2023 Active HYDROcodone-acetam inophen ([place]) 10-325 MG tablet Take 1 (one) tablet by mouth every 12 hours as needed 08/17/2023 Active loratadine (Claritin) 10 MG tablet Take 1 (one) tablet by mouth once daily 01/14/2023 Active sertraline (Zoloft) 25 MG tablet Take 1 (one) tablet by mouth once daily 07/14/2023 Active DULoxetine (Cymbalta) 60 MG capsule Take 1 (one) capsule by mouth once daily 90 capsule 4 04/22/2024 Active Additional Information Patient not taking.Reported on 06/01/2024 Atogepant (Qulipta) 30 MG TABS Take 1 (one) tablet by mouth nightly as needed 30 tablet 1 06/01/2024 Active onabotulinumtoxin A (Botox) 200 units injectionIndicatio ns:Muscle Spasticity Inject 400 (four hundred) Units into muscle Every 90 days Reasons: Muscle Spasticity 2 Each 2 06/01/2024 Active onabotulinumtoxin A (Botox) 200 units injection Inject 400 (four hundred) Units into muscle Every 90 days 2 Each 2 06/28/2024 Active Active Problems Patient Care Coordination No te Formatting of this note migh t be different from the original. 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 Encounter to establish gestational age using ult rasound Supervision of high risk in second tri [facility] Encounter for anatomic survey H/O: stroke with residual effects Evaluate anatomy not seen on prior sonogram Resolved Problems Problem Noted Date Diagnosed Date Resolved Date Cough 04/06/2024 06/29/2024 Upper respiratory infection 07/06/2023 06/15/2024 Immunizations Name Administration Dates Next Due Rho D Immune Globulin 12/23/2018 TDAP (7yrs+) 01/25/2019 Family History Medical History Relation Name Comments CVA Father Seizures Father Relation Name Status Comments Father Social History Tobacco Use Types Packs/Day Years [...] Comments Blood Pressure 115/79 07/01/2024 9:01 AM OVERCOILER Pulse 99 07/01/2024 9:01 AM OVERCOILER Temperature 36.9 C (98.4 F) 09/16/2023 10:19 AM OVERCOILER Respiratory Rate 20 10/19/2019 10:43 AM OVERCOILER Oxygen Saturation 99% 07/01/2024 9:01 AM OVERCOILER Inhaled Oxygen Concentration - - Weight 75.1 kg (165 lb 8 oz) 07/01/2024 9:01 AM OVERCOILER Height 167.6 cm (5' 6 ) 07/01/2024 9:01 AM OVERCOILER Body Mass Index 26.71 07/01/2024 9:01 AM OVERCOILER Plan of Treatment Health Maintenance Due Date Last Done Comments HEPATITIS B VACCINE (1 of 3 - 19+ 3-dose series) 2013 PAP SMEAR 09/01/2021 09/01/2018 COVID-19 VACCINE ( - 2023-2 5 season) 2024 INFLUENZA VACCINE (#1) 2024 DEPRESSION SCREENING 08/25/2024 MEDICARE AWV CALENDAR YEAR 2024 DTAP/TDAP/TD VACCINES (2 - T d or Tdap) 01/25/2029 01/25/2019 ZOSTER VACCINE (1 of 2) 2044 HEPATITIS C SCREENING Completed 10/16/2017 HIV SCREENING Completed 12/02/2018, 09/01/2018, 10/16/2017 HIB VACCINE Aged Out No longer eligi ble based on patient's age to complete this topic HPV VACCINE Aged Out No longer eligi ble based on patient's age to complete this topic MENINGOCOCCAL (Group B) VACCINE Aged Out No longer eligible b ased on patient's age to complete this topic MENINGOCOCCAL VACCINE Aged Out No amy zoe eligible based on patient's age to complete this topic PNEUMOCOCCAL VACCINE Aged Out No long er eligible based on patient's age to complete this topic Medical Devices Implanted Type Area Lumber Carrier Device Identifier Shelf Expiration Date Model / Serial / Lot Aneurysm Clip Aneurysm Clip Description:Girma Candy cardoso clip Procedures Procedure Name Priority Date/Time Associated Diagnosis Comments HIV-1 HIV-2 ANTIBODY + HIV P24 AG PANEL Routine 12/02/2018 1:33 PM CDT Encounter to establish gestational age using ultrasound (HCC) PAP THINPREP Routine 09/01/2018 4:36 PM OVERCOILER , unspecified gestational age (HCC) HEPATITIS SCREEN ACUTE Routine 10/16/2017 2:06 PM OVERCOILER from Last 3 Months or Most Recently Relevant to Health Maintenance Results * HIV-1 HIV-2 ANTIBODY + HIV P24 AG PANEL (12/02/2018 1:33 PM CDT) HIV1/2 Ab + P24 Ag Non Reactive Non Reactive 12/02/2018 6:42 PM CDT [facility] Blood BLOOD SPECIMEN / Unknown Venipuncture / Unknown 12/02/2018 1:33 PM CDT 12/02/2018 1:59 PM CDT Narrative [facility] - 12/02/2018 6:42 PM CDT No Laboratory evidence of HIV infection. Marcelina Tapia MD LAB - CHEMISTRY AYAH ZAYAS [facility] [address] [place] [address] * PAP THINPREP (09/01/2018 4:36 PM OVERCOILER) Diagnosis Comment 09/07/2018 4:19 PM OVERCOILER [facility] ([facility]) Comment: NEGATIVE FOR INTRAEPITHELIAL LESION AND MALIGNANCY. THIS SPECIMEN WAS RESCREENED PART OF OUR RISK MANAGER PROGRAM. Specimen Adequacy Comment 019 4:19 PM OVERCOILER [facility] ([facility]) Comment: Satisfactory for evaluation. Endocervical and/or squamous metaplastic cells (endocervical component) are present. Performed by Comment 09/07/2018 4:19 PM OVERCOILER [facility] ([facility]) Comment:Syeda Ramirez, Cytot echnologist ([facility]) QC Reviewed by Comment 09/07/2018 4:19 PM OVERCOILER [facility] ([facility]) Comment:Roxy Stanton, Cherrie ervisory Pomologist ([facility]) Comment . 09/07/2018 4:19 PM OVERCOILER [facility] ([facility]) Note Comment 09/07/2018 4:19 PM OVERCOILER [facility] ([facility]) Comment: The Pap smear is a screening test designed to aid in the detection of premalignant and malignant conditions of the uterine cervix. It is not a diagnostic procedure and should not be used as the sole means of detecting cervical cancer. Both false-positive and false-negative reports do occur. Pathology/Cytolo gy PART OF UTERINE CERVIX / Unknown Collection / Unknown 09/01/2018 4:36 PM OVERCOILER 09/01/2018 4:45 PM OVERCOILER Narrative [facility] ([facility]) - 09/07/2018 4:19 PM OVERCOILER Performed at: [address] [place] [address] [phone] Funeral Service Apprentice: Jovanna Castro MD, Phone: [phone] Specimen Comment: Source.............Cervix Specimen Comment: LMP / Prev Treat...None Specimen Comment: Other.............. Specimen Comment: No. of containers..01 ThinPrep Vial Eileen Wong MD LAB - PATHOLO GY/CYTOLOGY ORDERABLES [facility] ([facility]) [address] [place] [address] * HEPATITIS SCREEN ACUTE (10/16/2017 2:06 PM OVERCOILER) Hepatitis A Virus Antibody IgM Non-react [facility] Non-reac tive [facility] Hepatitis B Virus Surface Antigen Non-react [facility] Hepatitis B Core Virus Antibody IgM Non-react [facility] Hepatitis C Antibody Non-react [facility] Comment: Hepatitis C Antibody screen indicates no serologic evidence of past or current infection with Hepatitis C Virus. Patients with unexplained liver disease who are immunocompromised or suspected of having acute Hepatitis C infection may benefit from Nucleic Acid Test (ANTOINE) for Hepatitis C Viral RNA to confirm Hepatitis C status. Blood specimen (specimen) BLOOD SPECIMEN / Unknown 10/16/2017 2:06 PM OVERCOILER 10/16/2017 2:29 PM OVERCOILER Addison Campos MD LAB - CHEMISTRY AYAH ZAYAS [address] [phone] from Last 3 Months or Most Recently Relevant to Health Maintenance Advance Directives * Full Code (Latest Code Status on File) Date Activated Date Inactivated Comments 03/13/2019 4:02 PM 03/15/2019 1:24 PM * Full Code Date Activated Date Inactivated Comments 03/13/2019 2:21 PM 03/13/2019 4:02 PM Care Teams Supervisor Correspondence Section Relationship Specialty Start Date End Date Ab Riggs APRN-ALBERTA [address] [place] [address] DEISY Hopkins [id number] PCP - General Nurse Practitioner Family 04/22/24
--- OUTSIDE RECORDS SUMMARY | 2024-10-07 16:06 | XMS_ITS | Referral Summary ---
Author Organization [facility] [employer] Address [address] [place] [address] Care Team Providers Care Business Intelligence Administrator Name Role Phone Ab Riggs MARGARITA-SUPERVISOR BLAST FURNACE Primary Care Provider [phone] Source Comments [facility] [employer]non-owned Affiliates and Associated Physician Practices is amultiple site organization consisting of ambulatory clinics and hospital sitesin [place], [place] and [place]. This disclosure is being madepursuant to the Care Everywhere program and may not contain all information available regarding this patient. Last updated 18.[facility] [employer] Allergies No known active allergies Medications * [...] NOSTRIL EVERY DAY 01/14/2023 Active HYDROcodone-acetam inophen ([place]) 10-325 MG tablet Take 1 (one) tablet [...] Supervision of high risk in second tri mester Encounter for anatomic survey H/O: stroke with residual effects Evaluate anatomy not seen on prior sonogram Resolved Problems Problem Noted Date Diagnosed Date Resolved Date Cough 04/06/2024 06/29/2024 Upper respiratory infection 07/06/2023 06/15/2024 Immunizations Name Administration Dates Next Due Rho D Immune Globulin 12/23/2018 TDAP (7yrs+) 01/25/2019 Social History Tobacco Use Types Packs/Day Years [...] Comments Blood Pressure 115/79 07/01/2024 9:01 AM MANAGEMENT SPECIALIST Pulse 99 07/01/2024 9:01 AM MANAGEMENT SPECIALIST Temperature 36.9 C (98.4 F) 09/16/2023 10:19 AM MANAGEMENT SPECIALIST Respiratory Rate 20 10/19/2019 10:43 AM MANAGEMENT SPECIALIST Oxygen Saturation 99% 07/01/2024 9:01 AM MANAGEMENT SPECIALIST Inhaled Oxygen Concentration - - Weight 75.1 kg (165 lb 8 oz) 07/01/2024 9:01 AM MANAGEMENT SPECIALIST Height 167.6 cm (5' 6 ) 07/01/2024 9:01 AM MANAGEMENT SPECIALIST Body Mass Index 26.71 07/01/2024 9:01 AM MANAGEMENT SPECIALIST Functional Status Functional Status Response Date of Assess ment Is person deaf or have serious hearing difficult y? No 03/13/2019 Is person blind or have serious difficulty seein g? No 03/13/2019 Does person have serious dif ficulty walking/climbing stairs? Yes 03/13/2019 Does person have difficulty dressing/bathing? Ye s 03/13/2019 Does person have difficulty doing errands alone? Yes 03/13/2019 Cognitive Status Response Date of Assessm ent Does person have difficulty concentrating/remembering/making decisions? No 03/13/2019 Plan of Treatment Not on file Medical Devices Implanted Type Area Laboratory Apparatus Glass Grinder Device Identifier Shelf Expiration Date Model / Serial / Lot Aneurysm Clip Aneurysm Clip Description:Girma cardoso clip Procedures Procedure Name Priority Date/Time Associated Diagnosis Comments HIV-1 HIV-2 ANTIBODY + HIV P24 AG PANEL Routine 12/02/2018 1:33 PM CDT Encounter to establish gestational age using ultrasound (HCC) PAP THINPREP Routine 09/01/2018 4:36 PM MANAGEMENT SPECIALIST , unspecified gestational age (HCC) HEPATITIS SCREEN ACUTE Routine 10/16/2017 2:06 PM MANAGEMENT SPECIALIST from Last 3 Months or Most Recently Relevant to Health Maintenance Results * HIV-1 HIV-2 ANTIBODY + HIV P24 AG PANEL (12/02/2018 1:33 PM CDT) HIV1/2 Ab + P24 Ag Non Reactive Non Reactive 12/02/2018 6:42 PM CDT [facility] Blood BLOOD SPECIMEN / Unknown Venipuncture / Unknown 12/02/2018 1:33 PM CDT 12/02/2018 1:59 PM CDT Narrative [facility] - 12/02/2018 6:42 PM CDT No Laboratory evidence of HIV infection. Marcelina Tapia MD LAB - CHEMISTRY AYAH ZAYAS [facility] [address] [place] [id number] * PAP THINPREP (09/01/2018 4:36 PM MANAGEMENT SPECIALIST) Diagnosis Comment 09/07/2018 4:19 PM MANAGEMENT SPECIALIST [facility] ([facility]) Comment: NEGATIVE FOR INTRAEPITHELIAL LESION AND MALIGNANCY. THIS SPECIMEN WAS RESCREENED PART OF OUR LEAF STICKER PROGRAM. Specimen Adequacy Comment 019 4:19 PM MANAGEMENT SPECIALIST [facility] ([facility]) Comment: Satisfactory for evaluation. Endocervical and/or squamous metaplastic cells (endocervical component) are present. Performed by Comment 09/07/2018 4:19 PM MANAGEMENT SPECIALIST [facility] ([facility]) Comment:Syeda Ramirez Cytot echnologist ([facility]) QC Reviewed by Comment 09/07/2018 4:19 PM MANAGEMENT SPECIALIST [facility] ([facility]) Comment:Roxy Stanton, Cherrie ervisory Industrial Relations Counselor ([facility]) Comment . 09/07/2018 4:19 PM MANAGEMENT SPECIALIST [facility] ([facility]) Note Comment 09/07/2018 4:19 PM MANAGEMENT SPECIALIST [facility] Comment: The Pap smear is a screening test designed to aid in the detection of premalignant and malignant conditions of the uterine cervix. It is not a diagnostic procedure and should not be used as the sole means of detecting cervical cancer. Both false-positive and false-negative reports do occur. Pathology/Cytolo gy PART OF UTERINE CERVIX / Unknown Collection / Unknown 09/01/2018 4:36 PM MANAGEMENT SPECIALIST 09/01/2018 4:45 PM MANAGEMENT SPECIALIST Narrative [facility] ([facility]) - 09/07/2018 4:19 PM MANAGEMENT SPECIALIST Performed at: [address] [place] [id number] Entry Examiner: Jovanna Castro MD, Phone: [phone] Specimen Comment: Source.............Cervix Specimen Comment: LMP / Prev Treat...None Specimen Comment: Other.............. Specimen Comment: No. of containers..01 ThinPrep Vial Eileen Wong MD LAB - PATHOLO GY/CYTOLOGY ORDERABLES Performing Organization Address City/State/[facility] Co de Phone Number [facility] ([facility]) [address] [place] [address] * HEPATITIS SCREEN ACUTE (10/16/2017 2:06 PM MANAGEMENT SPECIALIST) Hepatitis A Virus Antibody IgM Non-react [facility] Hepatitis B Virus Surface Antigen Non-react [facility] Hepatitis B Core Virus Antibody IgM Non-react [facility] Hepatitis C Antibody Non-react [facility] Comment: Hepatitis C Antibody screen indicates no serologic evidence of past or current infection with Hepatitis C Virus. Patients with unexplained liver disease who are immunocompromised or suspected of having acute Hepatitis C infection may benefit from Nucleic Acid Test (ANTOINE) for Hepatitis C Viral RNA to confirm Hepatitis C status. Blood specimen (specimen) BLOOD SPECIMEN / Unknown 10/16/2017 2:06 PM MANAGEMENT SPECIALIST 10/16/2017 2:29 PM MANAGEMENT SPECIALIST Addison Campos MD LAB - CHEMISTRY AYAH Barron Organization Address City/State/ZIP Co de Phone Number [address] [phone] from Last 3 Months or Most Recently Relevant to Health Maintenance Advance Directives * Full Code (Latest Code Status on File) Date Activated Date Inactivated Comments 03/13/2019 4:02 PM 03/15/2019 1:24 PM * Full Code Date Activated Date Inactivated Comments 03/13/2019 2:21 PM 03/13/2019 4:02 PM Care Teams Business Intelligence Administrator Relationship Specialty Start Date End Date Ab Riggs APRN-ALBERTA [address] [place] [id number] PCP - General Nurse Practitioner Family 04/22/24
--- OUTSIDE RECORDS SUMMARY | 2024-10-07 16:06 | XMS_ITS | Continuity of Care Document ---
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 Name Role Phone Demetrio Jaramillo MD Unavailable Unavailable Allergies, Adverse Reactions, Alerts Substance Reaction Status Criticality No Known Allergies Active No Inform ation Medications Medication Instructions Dosage Effective Dates (start - stop) Status Comments Percocet 5 mg-325 mg tablet take 1 tablet by oral route 2 times every day as needed as needed 1 tablet - Active PRn for pain, avoid driving or operate machines, disp 05/19/18 Keppra 500 mg tablet take 1 tablet by oral route 2 times every day 500 MG - Active baclofen 20 mg tablet take 1 tablet by oral route 3 times every day as needed 20 MG - Active avoid drivin g or operate machines Procedures Procedure Date OFFICE/OUTPATIENT VISIT, EST OFFICE/OUTPATIENT VISIT, EST PREV VISIT, EST, AGE 18-39 OFFICE/OUTPATIENT VISIT, EST OFFICE/OUTPATIENT VISIT, EST OFFICE/OUTPATIENT VISIT, EST PREV VISIT, EST, AGE 18-39 PREV VISIT, EST, AGE 18-39 OFFICE/OUTPATIENT VISIT, EST OFFICE/OUTPATIENT VISIT, EST PREV VISIT, NEW, AGE 18-39 Advance Directives Directive Yes / No Effective Date File Name No Information Encounters Encounter Description Practice Location Reason(s) For Visit Diagnoses Date Provider Providers Copied on Encounter [facility], [address] [place] [address] [place], [id number], [place] tel:[phone] [facility] No Information 8 Clint Atkinson. [address], [place], [place], [address] , [place]. tel:[phone] OFFICE/OUTPA TIENT VISIT, EST [facility], [address], [place], [place], [address], [place] tel:[phone] [facility] chronic pain1 (chief complaint) StrokeHemiparesis following cerebrovascular disease 8 Clint Atkinson. [address], [place], [place], [address] , [place]. tel:[phone] [facility], [address], [place], [place], [address], [place] tel:[phone] [facility] No Information 8 Clint Atkinson. [address], [place], [place], [address] , [place]. tel:[phone] OFFICE/OUTPA TIENT VISIT, EST [facility], [address], [place], [place], [address], [place] tel:[phone] [facility] CVA1 (chief complaint)k nee pain1 (chief complaint) Pain in left kneeStrokeHemipare sis following cerebrovascular disease 8 Clint Atkinson. [address], [place], [place], [address] , [place]. tel:[phone] Referring Provider: Demetrio Jaramillo, [address], [place], [place], [address]. tel:[phone] PREV VISIT, EST, AGE 18-39 [facility], [address], [place], [place], [address], [place] tel:[phone] [facility] PHysical (chief complaint) Encntr for general adult medical exam w/o abnormal findings 8 Clint Atkinson. [address], [place], [place], [address] , [place]. tel:[phone] Referring Provider: Demetrio Jaramillo, [address], [place], [place], [address]. tel:[phone] OFFICE/OUTPA TIENT VISIT, [facility], [address], [place], [place], [address], [place] tel:[phone] [facility] anxiety1 (chief complaint)n radha pain1 (chief complaint)i tchy rash1 (chief complaint)h eadache (chief complaint) Generalized Anxiety DisorderRashRadicu lopathy, cervical regionHeadache Oct-2 0-201 7 Clint Atkinson. [address], [place], [place], [address] , [place]. [phone] Referring Provider: [facility] [place], [address]. tel:[phone] OFFICE/OUTPA TIENT VISIT, [facility], [address], [place], [place], [address], [place] tel:[phone] [facility] depression (chief complaint)d epression1 (chief complaint)n radha pain1 (chief complaint)h eadache1 (chief complaint) HemangiomaDepressi onRadiculopathy, cervical region May-2 0-201 6 Clint Atkinson. [address], [place], [place], [address] , [place]. tel:[phone] Referring Provider: Miladys Armando [address], [place], [place], [address]. tel:[phone] OFFICE/OUTPA TIENT VISIT, [facility], [address], [place], [place], [address], [place] tel:[phone] [facility] headache1 (chief complaint)l ow D (chief complaint) HeadacheHemangioma Vitamin D deficiency, unspecified 2-201 6 Clint Atkinson. [address], [place], [place], [address] , [place]. [phone] Referring Provider: Miladys Armando [address], [place], [place], [address]. tel:[phone] PREV VISIT, EST, AGE 18-39 [facility], [address], [place], [place], [address], [place] tel:[phone] [facility] PHysical (chief complaint) Encntr for general adult medical exam w/o abnormal findings 6 Clint Atkinson. [address], [place], [place], [address] , [place]. tel:[phone] Referring Provider: Miladys Armando [address], [place], [place], [address]. tel:[phone] PREV VISIT, EST, AGE 18-39 [facility], [address], [place], [place], [address], [place] tel:[phone] [facility] Physical (chief complaint) Routine Medical ExamRoutine Medical Exam 0 5 Clint Atkinson. [address], [place], [place], [address] , [place]. tel:[phone] Referring Provider: Miladys Armando [address], [place], [address]. tel:[phone] OFFICE/OUTPA TIENT VISIT, EST [facility], [address], [place], [place], [address], [place] tel:[phone] [facility] sore throat (chief complaint) Throat painAcute upper respiratory infections of other multiple sites 4 Clint Atkinson. [address], [place], [place], [address] , [place]. tel:[phone] Referring Provider: Miladys Armando [address], [place], [place], [address]. tel:[phone] OFFICE/OUTPA TIENT VISIT, EST [facility], [address], [place], [place], [address], [place] tel:[phone] [facility] abdominal pain (chief complaint) Abdominal PainUnspecified vitamin d deficiency Oct-0 4 Clint Atkinson. [address], [place], [place], [address] , [place]. tel:[phone] Referring Provider: Demetrio Jaramillo, [address], [place], [place], [address]. tel:[phone] PREV VISIT, NEW, AGE 18-39 [facility], [address], [place], [place], [address], tel:[phone] [facility] Physical (chief complaint) Routine Medical ExamRoutine Medical Exam 4 Clint Atkinson. [address], [place], [place], [address] , [place]. [phone] Family History Family Member Type Diagnosis Age At Onset Father Problem (finding) Unknown Disease Father Problem (finding) Seizure disorder Mother Problem (finding) Alive and well Brother Problem (finding) Alive and well Payers Payer name Insurance type Covered green party ID Authoriza tion(s) No Information Social History Type Description Quantity Date Captured Comments Sex Female Smoking Status No Information Chief Complaint And Reason For Visit No Information Plan Of Treatment Date Type Action Status Goal HPV (). Due on 8 due Goal Influenza vaccine. Due on due Goal Tdap. Due on due Goal PAP. Due on due Goal Depression screening. Due on due Goal Td vaccine. Due on 18 due Goal HPV (). Due on 8 due Goal Td vaccine. Due on 18 due Goal Depression screening. Due on due Goal PAP. Due on due Goal Tdap. Due on due Goal Influenza vaccine. Due on due Goal HPV (1st). Due on 8 due Goal Td vaccine. Due on 18 due Goal Depression screening. Due on due Goal PAP. Due on due Goal Tdap. Due on due Goal Influenza vaccine. Due on due Goal Tdap. Due on due Goal PAP. Due on due Goal Depression screening. Due on due Goal Td vaccine. Due on 17 due Goal HPV (1st). Due on 7 due Goal PAP. Due on due Goal Depression screening. Due on due Goal Tdap. Due on due Goal HPV (1st). Due on 6 due Goal Td vaccine. Due on 16 due Goal Tdap. Due on due Goal Td vaccine. Due on 16 due Goal HPV (1st). Due on 6 due Goal Depression screening. Due on due Goal PAP. Due on due Goal Depression screening. Due on due Goal HPV (1st). Due on 6 due Goal PAP. Due on due Goal Td vaccine. Due on 16 due Goal Tdap. Due on due Referral Ordered: MRI NECK SPINE W/O DYE ordered Referral Ordered: Aamir Gomes (related to Headache) ordered Referral Referred To: Aamir Gomes [address] [place], [phone] Ordered: Referrals: Aamir Gomes. Evaluate and treat ordered Referral Ordered: MRI BRAIN W/O & W/DYE ordered Referral Ordered: MRI ABDOMEN W/O DYE ordered Referral Ordered: US EXAM, ABDOM, COMPLETE ordered History Of Present Illness Encounter Date Complaint History Of Prese nt Illness chronic pain1 Pt has been havi ng severe left arm and leg muscle spasm and pain due to recent CVA and left side hemiparesis. Pt walks with cane Pt states that if she does not take percocet, she has severe left side pain. Pt takes baclofen PRn which also helps Pt also is doing PT now. Pt has not noticed much improvement with left side function recently Pt denies any headache. Pt does not have any seizure Pt is seeing neurosurgery now. Pt actually getting keppra from neurosurgery. Pt did not know they called in for her. knee pain1 pt c/o left knee pain for several weeks due to hyperextension of left knee during ambulation due to her left side weakness. Pt denies any redness or swelling. Pt denies any injury. CVA1 Pt has CVA recen tly with left hemiparesis and also sensory loss Pt is doing rehab now Pt still takes keppra and also she takes percocet and also baclofen. Pt denies any h/o seizure. Pt has left arm and hip and leg pain and muscle spasm. Pt has been ambulating carefully with cane. Pt denies any speech problem PHysical Pt needs annual physical. 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 Pt is attending rehab now and she gained some strength and sensory back on left side. pt is able to walk with cane now. Pt denies any speech or memory issue. Pt has been having migraine headache since the surgery and she is seeing neurosurgery at [facility] now. Pt denies any head injury. Pt takes percocet and flexeri for left side arm and leg pain. anxiety1 Pt has chronic a nxiety and depression. Pt takes celexa and did well but she never came back for follow up. Pt states that it really helped her with her mood. Pt run out of celexa now. Pt denies any suicidal or homicdial thought neck pain1 Pt c/o chronic n radha pain with left radiculopathy. Pt denies any numnbess. Pt failed NSAID. Pt states that robaxin did help her pain. itchy rash1 Pt has diffuse i tching with small red bump all over body especially around finger, arm and leg for two weeks. Pt states that she sleeps ok at night without much itching Pt denies using any new cosmetic product. or food. Pt denies any sick contact. Pt denies any fever, chill. Pt denies any sob or trouble with breathing headache Pertinent negati ves include vomiting. Additional information: Pt has cavernoma. Pt has daily headache. Pt sees neurosurgery. Pt decides against surgery at this point. Pt denies any worsening headache. Pt denies any acute headache. depression depression1 Pt has been havi ng depressive symptoms for several months Pt feels very irritable and she feels angery all the time with crying spells. Pt is worried about her pending head surgery. Pt also has some stressful social situations. Pt denies any suicidal or homicidal thought neck pain1 Pt c/o neck pain with left radiculopathy to her left upper arm and elbow area for several mohths. . Pt feels numnbess and tingling and pain. from neck down to left upper arm. Pt also has chronic migraine headche and she will have cavernoma surgery soon. Pt no longer takes topamax anymore since it did not work. Pt denies any weakness left hand. Pt states that sometimes the pain involves left hand also headache1 Pt has not had h eadache for several weeks. Pt has throbbing headache with photophobia. No injury. Pt has cavernoma. headache1 Pt has chronic m igraine headache. Pt has photophobia and nausea with headache. Pt has headache 2-3 per week. Pt states that topamax did not help Pt does have a cavernoma. Pt denies any head injury low D Pt has low D on lab. Rest of lab all normal PHysical Pt needs annual physical. Pt has hsitroy of cavernomas and s/p surgical removal when she was 4. Pt was seeing neurology until two years ago. Pt was told they no longer takes her insurance. Pt has chronic headache due to cavernoma. Pt c/o daily throbbing headache with photophobia and also nausea with headache. Pt denies any head injury. Pt denies any vision prlblem. Pt denies any other complaitns Pt denies any wrosening headahe. Pt also has chronic sinus congetion. No acute drinage or sinus pain Instructions Date Instruction Additional Infor mation Increase physical activity Relat ed to Stroke Increase physical activity Relat ed to Hemiparesis following cerebrovascular disease Increase activity. Related to En cntr for general adult medical exam w/o abnormal findings Assessments Type Assessment Date No Information
--- OUTSIDE RECORDS SUMMARY | 2024-10-07 16:06 | XMS_ITS | Referral Summary ---
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 Social History Tobacco Use Types Packs/Day Years Used Date Smoking Tobacco: Never Tobacco Cessation:Counseling Given: Not Answered Personal Safety Answer Date Recorded Getting School Help Needed Not on file 10/19 Comments No Sex and Gender Information Value Date Recorded Sex Assigned at Not on file Legal Sex Female 10:11 PM QUALITY DIRECTOR Gender Identity Not on file Sexual Orientation Not on file Last Filed Vital Signs Vital Sign Reading Time Taken Comments Blood Pressure 143/60 08/11/2022 9:07 PM QUALITY DIRECTOR Pulse 100 08/11/2022 9:07 PM QUALITY DIRECTOR Temperature 36.6 C (97.9 F) 08/11/2022 9:07 PM QUALITY DIRECTOR Respiratory Rate 16 08/11/2022 9:07 PM QUALITY DIRECTOR Oxygen Saturation 99% 08/11/2022 9:07 PM QUALITY DIRECTOR Inhaled Oxygen Concentration - - Weight 71.2 kg (157 lb) 08/11/2022 9:07 PM QUALITY DIRECTOR Height 167.6 cm (5' 6 ) 08/11/2022 9:07 PM QUALITY DIRECTOR Body Mass Index 25.34 08/11/2022 9:07 PM QUALITY DIRECTOR Plan of Treatment Not on file [facility] RE[facility] IDPA Care Teams Custom Garment Designer Relationship Specialty Start Date End Date Collin Mckeon MD [address] [place] [id number] PCP - General Family Medicine 09/29/24
--- OUTSIDE RECORDS SUMMARY | 2024-10-07 16:06 | XMS_ITS | Data Portability ---
Author Organization [facility] Address [address] [place] [address] Care Team Providers Care Assistant Site Manager Name Role Phone LEIGHTON CURTIS Functional Architect JEREMY RAZO Primary Care Provider Assessment No assessment recorded. Plan of Treatment Reminders Order Date Submit Date Provider Last Modified By Organization Details Last Modified Time Details Appointments ANY 15 2024 09:15A M Collin Mckeon MD Not available Not available Not available Lab None recorded . Referral pain manageme nt referral 2024 025 PHILIPPMadeline Weems MD, [address] [facility] [address], [place], [address], 09/22/2024 09:50:32 neurolog ist referral 2024 [facility], [address], [place], [address], 09/22/2024 09:55:17 neurolog ist referral 2019 020 PHILIPP Not available 04/12/2020 14:37:00 pain manageme nt referral - Please call patient and schedule appt. Please send consult note after initial visit. No imaging on file 2019 020 [facility], [address], [place], [address], 07/28/2020 12:05:16 Procedures None recorded . Surgeries None recorded . Imaging None recorded . Medication Orders hydrocod one 7.5 mg-aceta minophen 325 mg tablet 2024 025 PHILIPP [facility], [address] [place], [place], [id number], 09/21/2024 19:17:01 Qulipta 60 mg tablet [address] [facility]85, [address] [place], [place], [id number], 09/21/2024 12:56:12 cycloben zaprine 5 mg tablet [address] [facility]52721, [address] [place], [place], [id number], 09/21/2024 12:56:12 venlafax ine 50 mg tablet 2019 020 [facility] #03185, [address], [place], [id number], 09/21/2024 12:26:01 duloxeti ne 20 mg capsule, delayed release 2019 020 [facility] #54790, [address], [place], [id number], 11/17/2019 15:36:10 Patient TargetsNo targets recorded. Patient Instructions Encounter Date Encounter Id Patient Instructions Last Modified By Organization Details Last Modified Time 10/20/2019 [id number] learning about healthy weight Not available 10/21/2019 08:48:30 starting a weigh t loss plan: care instructions Not available 10/21/2019 08:48:30 09/21/2024 [id number] A healthy lifestyle: care instructions [email or web address] Not available 09/21/2024 12:56:12 Reason for Referral Pain Management Referral for Neuralgia Please call patient and schedule appt. Please send consult note after initial visit. No imaging on file Referring Physician: Jeremy Razo, Farm Product Purchaser, Encounter Date: 10/20/2019 Neurologist Referral for Hem iparesis Referring Physician: Jeremy Razo, Farm Product Purchaser, Encounter Date: 12/27/2019 Neurologist Referral for His tory of cerebrovascular accident Referring Physician: Collin Mckeon, Family Medicine, Encounter Date: 09/21/2024 Pain Management Referral for Chronic pain Referring Physician: Collin Mckeon, Family Medicine, Encounter Date: 09/21/2024 Results Created Date Observation Date Name Description Value Unit Range Abnormal Flag Note LastModifiedBy Organization Detail LastModifiedTime 04/04/20 20 03/24/2020 elect romary jane ephal ogram No observ ation record ed. Not Available 2019 12:19:24 Result Notes None recorded. Problems Name Problem SNOMED Code Status Onset Date Resolution Date Notes Provider Name and Address Organization Details Recorded Time Cerebrovasc ular accident 349990616 Completed 201710/20/2019 Lloyd Estrada [place] null, [place] [facility] 0 14:44:28 Cerebrovasc ular accident 717787535 Active 2019 Lloyd Estrada [place], [place] [facility] 0 14:44:28 Hemiparesis Active 2019 Lloyd Estrada [place], [place] [facility] 0 14:45:22 Overweight 567470688 Active 2024 Collin Mckeon MD Attn: Gerald gonzalez,[address] [facility], [place], [address], [place] [facility] 5 12:32:11 Depressive disorder 11977504 Active 2024 Collin Mckeon MD Attn: Gerald gonzalez,[address] [facility], [place], [address], [place] [facility] 5 12:32:11 Migraine 95074001 Active 2024 Collin Mckeon MD Attn: Gerald gonzalez,[address] [facility], [place], [address], [place] [facility] 5 12:32:12 Chronic pain 45832776 Active 2024 Collin Mckeon MD Attn: Gerald gonzalez,[address] [facility], [place], [address], [place] - [facility] 5 12:32:13 Spasm of back muscles 243486651 Active 2024 Collin Mckeon MD Attn: Gerald gonzalez,[address] [facility], [place], [address], [place] [facility] 5 12:32:14 History of cerebrovasc ular accident 325105919 Active 2024 Collin Mckeon MD Attn: Gerald gonzalez,[address] [facility], [place], [address], [place] [facility] 5 12:32:16 Seasonal allergic rhinitis 995089024 Active 2024 Coliln Mckeon MD Attn: Gerald gonzalez,[address] [facility], [place], [address], [place] - [facility] 5 12:34:01 Problem Notes None recorded. Procedures Surgical History Date Name Laterality Status Provider Name and Address Organization Details Recorded Time 10/14/19 20 Date of Last Pap Smear completed Lloyd Estrada MA [facility] 10/20/2019 14:40:02 10/24/19 18 procedure on brain completed Lloyd Estrada MA [facility] 10/20/2019 14:43:42 08/25/19 13 cholecystectomy completed Lloyd Estrada MA [facility] 10/20/2019 14:45:39 05/25/20 00 procedure on brain completed Lloyd Estrada MA [facility] 10/20/2019 14:43:36 procedure on lymph node completed Lloyd Estrada MA [facility] 10/20/2019 14:45:45 Imaging Results Imaging Date Name Status LastModified by Organization Details LastModified Time 03/24/2020 electroencephalogram completed Info rmation not available 04/04/2020 12:19:24 Procedure Notes None recorded. Medical Equipment None Reported. Allergies No known drug allergies Medications Name Sig Start Date Stop Date Status Note LastModified by Organization Details LastModified Time medroxyprog esterone 10 mg tablet TAKE 1 TABLET BY MOUTH DAILY 09/21 completed Not Available Not Available Not Available terconazole 0.8 % vaginal cream 10/20 completed Not Available Not Available Not Available triamcinolo ne acetonide 0.5 % topical ointment APPLY TOPICALLY TO THE AFFECTED AREA TWICE DAILY 09/21 completed Not Available Not Available Not Available metronidazo le 500 mg tablet 10/20 completed Not Available Not Available Not Available hydrocodone 10 mg-acetamin ophen 325 mg tablet TAKE 1 TABLET BY MOUTH EVERY 12 HOURS NEEDED 09/21 completed Not Available Not Available Not Available DOK 100 mg capsule 10/20 completed Not Available Not Available Not Available hydrocodone 7.5 mg-acetamin ophen 325 mg tablet TAKE 1 TABLET BY MOUTH EVERY 12 HOURS active Not Available Not Available No t Available ferrous sulfate 325 mg (65 mg iron) tablet 10/20 completed Not Available Not Available Not Available prednisone 50 mg tablet TAKE 1 TABLET BY MOUTH DAILY FOR 5 DAYS 09/21 completed Not Available Not Available Not Available venlafaxine 50 mg tablet Take 1 tablet twice a day by oral route for 30 days. 09/21 completed Not Available Not Available Not Available gabapentin 300 mg capsule TAKE 1 CAPSULE BY MOUTH THREE TIMES DAILY 09/21 completed Not Available Not Available Not Available sertraline 25 mg tablet TAKE 1 TABLET BY MOUTH EVERY DAY active Not Available Not Available No t Available ibuprofen 600 mg tablet 10/20 completed Not Available Not Available Not Available albuterol sulfate HFA 90 mcg/actuati on aerosol inhaler INHALE 2 PUFFS BY MOUTH EVERY 4-6 HOURS NEEDED FOR SHORTNESS OF BREATH OR WHEEZING 09/21 completed Not Available Not Available Not Available heparin (porcine) 10,000 unit/mL injection solution 10/20 completed Not Available Not Available Not Available norethindro ne (contracept irineo) 0.35 mg tablet 10/20 completed Not Available Not Available Not Available ondansetron 4 mg disintegrat ing tablet DISSOLVE 1 TABLET ON THE TONGUE EVERY 8 HOURS NEEDED FOR NAUSEA OR VOMITING 09/21 completed Not Available Not Available Not Available medroxyprog esterone 150 mg/mL intramuscul ar suspension 09/21 completed Not Available Not Available Not Available amoxicillin 875 mg-potassiu m clavulanate 125 mg tablet TAKE 1 TABLET BY MOUTH EVERY 12 HOURS FOR 7 DAYS 09/21 completed Not Available Not Available Not Available enoxaparin 60 mg/0.6 mL subcutaneou s syringe 10/20 completed Not Available Not Available Not Available medroxyprog esterone 150 mg/mL intramuscul ar syringe 09/21 completed Not Available Not Available Not Available cyclobenzap rine 5 mg tablet TAKE 1 TO 2 TABLETS BY MOUTH THREE TIMES DAILY NEEDED FOR MUSCLE SPASM active Not Available Not Available No t Available ciprofloxac in 0.3 %-dexametha sone 0.1 % ear drops,suspe nsion SHAKE LIQUID AND INSTILL 4 DROPS TO AFFECTED EAR TWICE DAILY FOR 7 DAYS 09/21 completed Not Available Not Available Not Available Alcohol Prep Pads 10/20 completed Not Available Not Available Not Available duloxetine 20 mg capsule,del ayed release Take 1 capsule twice a day by oral route for 30 days. 11/16 completed Not Available Not Available Not Available duloxetine 60 mg capsule,del ayed release TAKE 1 CAPSULE BY MOUTH DAILY 09/21 completed Not Available Not Available Not Available ProChamber USE DIRECTED WITH INHALER 09/21 completed Not Available Not Available Not Available BD Ultra-Fine Eunice Pen Needle 32 gauge x 32 10/20 completed Not Available Not Available Not Available Qulipta 60 mg tablet TAKE 1 TABLET BY MOUTH EVERY DAY active Not Available Not Available No t Available Qulipta 30 mg tablet TAKE 1 TABLET BY MOUTH EVERY NIGHT NEEDED 09/21 completed Not Available Not Available Not Available Vitals Date Recorded Body temperature Body height Body mass index (BMI) Body weight Systolic blood pressure Diastolic blood pressure Provider Name and Address Organization Details Last Updated DateTime 0 98.1 [degF] 167.64 cm 26 kg/m2 48351.4 7 g 114 mm[Hg] 70 mm[Hg] Lloyd Estrada MA [facility] 0 14:47:19 Date Recorded Body height Provider Name an d Address Organization Details Last Updated DateTime 11/17/2019 167.64 cm Nelly Viveros [facility] 11/17/2019 15:03:54 Date Recorded Body height Provider Name an d Address Organization Details Last Updated DateTime 12/27/2019 167.64 cm Tawana Hendrix MA [facility] 12/27/2019 15:05:31 Date Recorded Body height Body mass index (BMI) Body weight Oxygen saturation Oxygen saturation in Arterial blood by Pulse oximetry Heart rate Systolic blood pressure Diastolic blood pressure Provider Name and Address Organization Details Last Updated DateTime 5 167.64 cm 26.8 kg/m2 55606.0 8 g 99 % 99 % 98 /min 116 mm[Hg] 72 mm[Hg] Eneida Chowdhury MA [facility] 5 11:59:40 Social History Question Answer Notes LastModified by Organizat ion Details LastModified Time Tobacco Smoking Status Never Smoker Lloyd Estrada MA null, [facility] 10/20/2019 14:41:21 Do You Have An Advance Directive? No Information not available 10/20/2019 What Is Your Level Of Alcohol Consumption? Occasional Information not available 10/20/2019 What Is Your Level Of Caffeine Consumption? Moderate Information not available 10/20/2019 How Much Tobacco Do You Chew? None Information not available 10/20/2019 In The 14 Days Before Symptom Onset, Have You Had Close Contact With A Laboratory-confi rmed COVID-19 While That Case Was Ill? No Information not available 10/20/2019 In The 14 Days Before Symptom Onset, Have You Had Close Contact With A Person Who Is Under Investigation For COVID-19 While That Person Was Ill? No Information not available 10/20/2019 Have You Been To An Area Known To Be High Risk For COVID-19? No Information not available 10/20/2019 What Type Of Diet Are You Following? REGULAR Information not available 10/20/2019 Do You Or Have You Ever Used E-cigarettes Or Vape? Never Used Electronic Cigarettes Information not available 10/20/2019 Education 12 Information not available 10/20/2019 Are There Any Guns Present In Your Home? No Information not available 10/20/2019 Hard Of Hearing Or Deaf In One Or Both Ears? 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 09/21/2024 Information not available 09/21/2024 Performs Monthly Self-breast Exam? No Information not available 10/20/2019 Seat Belts Used Routinely Yes Information not available 10/20/2019 Smoke Alarm In Home Yes Information not available 10/20/2019 Do You Or Have You Ever Used Smokeless Tobacco? Never Used Smokeless Tobacco Information not available 10/20/2019 How Much Tobacco Do You Smoke? No Information not available 10/20/2019 General Stress Level Medium [email or web address] Information not available 11/17/2019 Do You Use Sunscreen Routinely? Yes Information not available 10/20/2019 On What Date Was Tobacco Cessation Counseling Provided? 09/21/2024 Information not available 09/21/2024 Sex: Unknown Functional Status Question Answer Note LastModified by Organization D etails LastModified Time What is your exercise level? Moderate Information not available 10/20/2019 Mental Status None recorded. Family History Relationship Description Onset Age of this Age Resolved Age Notes LastModified by Organization Details LastModified Time Father Depressive disorder [email or web address] Not available 2024 12:19:08 Sister Depressive disorder [email or web address] Not available 2024 12:19:08 Medical History Condition Response Coronary Artery Disease N Other N Atrial Fibrillation N High Blood Pressure N Depression Y COPD N Blood Clots N Anxiety Disorder Y Muscle, Joint, or Bone Problems N Acid Reflux (GERD) Y Cancer N Stroke Y High Cholesterol N Liver Disease N Headaches Y Kidney or Bladder Problems N Thyroid Problems N GI Problems N Skin Problems N Anemia N Heart Attack ([place]) N Diabetes N Seizures/Epilepsy N Asthma N Allergies Y Hepatitis N Heart Failure N Osteoporosis N Gynecological History Statement/Question Response Date of Last Pap Smear 10/14/2019 Current Control Method Depo-Jewel Diameter Gauger a Date of LMP LMP Unknown Obstetrics History GPAL:G 1 P 1 0 0 1 Type Value Multiple Births 0 Full Term 1 Induced 0 Spontaneous 0 Premature 0 Living 1 Ectopics 0 Total 1 Past Encounters Encounter ID Performer Location Encounter Start Date Encounter Closed Date Diagnosis/Indication Diagnosis SNOMED-CT Code Diagnosis ICD10 Code Diagnosis Note [id number] [facility] [address] [place] [address] 10/20/2019 14:20:31 10/21/2019 09:23:23 Cerebrovascular accident 412935711 I63.9 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 Has has surgery in 1999 and 2017. The latter surgery had complicati on of stroke during surgery leaving her with left hemiparesi s. - taking depo as control- has finished pt and she excercise at home- uses fox- no longer needs anticoagul ation Hemiparesis G81 .90 patient has nerve pain due to stroke in 2017. She is would like pain management . - cymbalta bid- discussed side effects and black box warning- f/u in one month Neuralgia 20129250 M79.2 patient has nerve pain and would like to have pain management . Will cymbalta. SHe does not want to be on gabapentin . - cymbalta 20mg bid Adult heal th examination 420569766 Z00.01 patient presents to establish. Was seeing Dr Jaramillo. Has obgyn. on Depo, UTD on pap. BMI 26. - discussed quitting soda- discussed diet and portion sizes [id number] [facility] [address] [place] [address] 11/17/2019 09:34:30 11/18/2019 14:17:21 Hemiparesis G81.90 patient stopped taking cympalta and would like to try something else. Will switch to venlafaxin e 50 mg bid. f/u in one month. -Patient was educated on his prescribed medication s, rationale for medication s, dosing indication s, adverse reactions, black box warning, dosing indication s, SE (e.g., decreased libido, weight gain, gynecomast ia, and galactorrh ea) and the risks and benefits. -Call center with questions/ concerns. Go to ER or call 911 for crisis (e.g., suicidal behaviors, suicidal ideations, intent or plan emerge). Additional ly, patient has suicide hotline #. - f/u one month - call with questions [id number] [facility] [address] [place] [address] 12/27/2019 13:47:56 12/28/2019 11:25:06 Hemiparesis 13091877 G81.90 patient does not feel any ain relief on venlafaxin e 50 mg bid. Given number for pain management . Will put neurology referral. She still does not want to try gabapentin . She states it is difficult to get out of bed due to pain on most days. Affecting QOL. - continue current dose and get into neuro/pain management -Patient was educated on his prescribed medication s, rationale for medication s, dosing indication s, adverse reactions, black box warning, dosing indication s, SE (e.g., decreased libido, weight gain, gynecomast ia, and galactorrh ea) and the risks and benefits. -Call center with questions/ concerns. Go to ER or call 911 for crisis (e.g., suicidal behaviors, suicidal ideations, intent or plan emerge). Additional ly, patient has suicide hotline #. - f/u one month - call with questions [phone] Collin Mckeon MD [facility] [place] [address] [facility] [address] [place] [address] 09/21/2024 11:21:19 09/22/2024 10:45:06 History of cerebrovascular accident 655205827 Z86.73 condition chronic with left hemiparesi s. refer to [facility] neurolog[facility] Spasm of back muscles 20 2968838 M62.830 condition chronic due to cva refill the flexeril Chronic pain 26949871 G8 9.29 condition chronic on the left due to george cva refill the norco and refer to dr weems. Migraine 24008611 G43.90 9 condiotn chroinc nad at goal continuet he quilipta 60 mg Depressive disorder 3908 9007 F32.A condition chronic and at goal continue the sertraline Overweight 925022927 E66 .3 condition chroni and not at goal start low fat diet. Seasonal a llergic rhinitis 346072715 J30.2 conditon chronic and at goal continue the stiven no d Health Concerns Section Related Observation LastModified by Organization Detai ls LastModified Time None Recorded Concern Status LastModified by Organization Details LastModified Time None Recorded Advance Directives Directive N: Payers Encounter Date Sequence Insurance Name Policy Number Policy [place] Covered Member ID Barahoan Member ID Guarantor Name 10/20/2019 1 [facility] PRIOR TO 02/22/2021 (MEDICAID REPLACEMENT - HMO) Shahnaz Nicole [id number] Shahnaz Nicole 11/17/2019 1 [facility] PRIOR TO 02/22/2021 (MEDICAID REPLACEMENT - HMO) Shahnaz Nicole [id number] Shahnaz Nicole 12/27/2019 1 [facility] PRIOR TO 02/22/2021 (MEDICAID REPLACEMENT - HMO) Shahnaz Nicole [id number] Shahnaz Nicole 09/21/2024 1 [facility] (MEDICARE REPLACEMENT/AD VANTAGE - HMO) [id number] Shahnaz Nicole [id number] Shahnaz Nicole 09/21/2024 2 [place] MED[place]ARE OR MEDICARE REPLACEMENT PRIMARY) Shahnaz Nicole [id number] Shahnaz Nicoel Notes Date Note Type Note Provider Name and Address Organization Details Recorded Time 10/20/2019 text/html Nick is a 24 YO F hx stroke 2018 and left side paralysis presents with and daughter to establish not taking any medication but wanting to get back on them. 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 the malformation is on the brain stem. She also had surgery for this in 1999. She had the second surgery done to be able to have kids as may have placed too much pressure on brain. After stroke she had no memory deficits or personality changes. She now has left side paralysis. 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 [facility] Attn: Accounting[address] [facility], [place], [address], [place] [facility] 10/21/2019 08:49:36 11/17/2019 text/html Nick is a 24 YO F hx stroke 2018 and left side paralysis presents (on phone due to pandemic) for f/u on cymbalta. Patient stopped medication after 5 fays due to shaking in left side when putting pressure on area. She would like to try something else. She does not want to try gabapentin as she states it is the new heroine. She has has gabapentin in the past while in highschool and it made her sleepy. VON BASILIO Attn: [address] [place], [address], [facility] 11/18/2019 13:39:09 12/27/2019 text/html Nick is a 24 YO F hx stroke 2018 and left side paralysis presents (on phone due to pandemic) for f/u on venlafaxine. Patient feels venlafaxine is not working. Denies any side effects and is still hvaing increased pain on her left side. She does not want to try gabapentin as she states it is the new heroine. She has has gabapentin in the past while in highschool and it made her sleepy. VON [facility]IO Attn: Accounting[address] [place], [address], [facility] 12/27/2019 15:50:09 09/21/2024 text/html presents to the office for initial evaluation states that she had a cva adn has left side hemiparesis. has 2 brain caverinomas. had the stroke from the surgery. has gerd adn allergies and anxiety and the depression is taking the quilipta for the migraines. Collin Mckeon MD Attn: [address] [place], [address], [facility] 09/21/2024 19:16:57 OBGyn Episode Ob Episode Information Episode Created Date Number of Fetuses Patient Bloodtype Patient rh Status Prepregnancy Weight lbs Domestic Partner Domestic Partner Phone Father Name Closing Supervisor Status 10/20/19 20 1 CLOSED Fetus Data First Name Last Name Admitted to NICU Weight (g) Sex Living Outcome Pediatric Complications Fetus ID Race Codes Race Delivery Type F Full Term [id number] Vaginal Ronal Calculation Initial Ronal Date Initial Exam Date Initial Exam Provider Initial Ultrasound Date Last Menstrual Period Date Ultra Sound Weeks Gestation 0 Eighteen To Twenty Week Ronal Update Ultra Sound Date Fundal Height At Umbil Quickening Date Ultra Sound Latest Weeks Gestation Final Ronal Confirmed By Final Ronal Confirmed Date Final Ronal Date Ultra Sound Latest Days Gestation 0 0 Menstrual History Last Menstrual Date Menses Monthly On Bcp Conception Prior Menses Frequency Hcg Plus Date Menarche Onset Age Delivery Information Delivery Date Delivery Type Labor Anesthesia Weeks Gestation Incision Type Labor Labor Length Hrs Delivered By Post Complications Tubal Sterilization Discharge Date Comments 9 40 Discharge Information Feeding Method Contraceptive Method Maternal HG B and HCT Levels
--- OUTSIDE RECORDS SUMMARY | 2024-10-07 16:06 | XMS_ITS | Clinical Summary ---
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 Medical History Medical History Date Comments Stroke (HCC) Social History Tobacco Use Types Packs/Day Years Used Date Smoking Tobacco: Never Tobacco Cessation:Counseling Given: Not Answered Personal Safety Answer Date Recorded Getting School Help Needed Not on file 10/19 Comments No Sex and Gender Information Value Date Recorded Sex Assigned at Not on file Legal Sex Female 10:11 PM BACK SEWER Gender Identity Not on file Sexual Orientation Not on file Obstetrics History Last Filed Vital Signs Vital Sign Reading Time Taken Comments Blood Pressure 143/60 08/11/2022 9:07 PM BACK SEWER Pulse 100 08/11/2022 9:07 PM BACK SEWER Temperature 36.6 C (97.9 F) 08/11/2022 9:07 PM BACK SEWER Respiratory Rate 16 08/11/2022 9:07 PM BACK SEWER Oxygen Saturation 99% 08/11/2022 9:07 PM BACK SEWER Inhaled Oxygen Concentration - - Weight 71.2 kg (157 lb) 08/11/2022 9:07 PM BACK SEWER Height 167.6 cm (5' 6 ) 08/11/2022 9:07 PM BACK SEWER Body Mass Index 25.34 08/11/2022 9:07 PM BACK SEWER Plan of Treatment Health Maintenance Due Date Last Done Comments Depression Screening 1994 Hepatitis C Screening 1994 Varicella Vaccines (1 of 2 - 13+ 2-dose series) 2007 Hepatitis B Screening 2012 Regular Well Visit/Exam 18-64 2012 Cervical Cancer Screening 09/01/2019 09/01/2018 Influenza Vaccine (#1) 2024 DTaP/Tdap/Td Vaccine (3 - Td or Tdap) 01/25/2029 01/25/2019, 06/23/2016 HPV Vaccines Aged Out No longer eligi ble based on patient's age to complete this topic Pneumococcal vaccine <65 Aged Out No longer eligible based on patient's age to complete this topic Insurance IDPA [facility] MDCR HMO REF [facility]CR HMO REF IDPA Care Teams Hand Candy Cutter Relationship Specialty Start Date End Date Collin Mckeon MD [address] [place] [address] PCP - General Family Medicine 09/29/24
--- OUTSIDE RECORDS SUMMARY | 2024-10-07 16:06 | XMS_ITS | Data Portability ---
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 Plan of Treatment Reminders Order Date Submit Date Provider Last Modified By Organization Details Last Modified Time Details Appointments None recorded. Lab drug of abuse panel, urine 2023 024 [facility] (Lab), [address] [place], [address], 4 22:21:51 vitamin B12 + folate, serum or blood [address] (Lab), [address] [place], [address], 4 13:30:14 vitamin D, 25-hydroxy, total, serum [address] (Lab), [address] [place], [address], 4 13:30:57 drug screen, urine 2023 024 [facility], [address] [place], [address], 4 01:15:23 BMP, serum or plasma [address] (Lab), [address] [place], [address], 4 13:27:00 hepatic function panel, serum [address] (Lab), [address] [place], [address], 4 13:27:41 CBC [address] (Lab), [address] [place], [address], 4 13:28:02 lipid panel, serum [address] (Lab), [address] [place], [address], 4 13:28:31 glycohemogl obin, total, blood [address] (Lab), [address] [place], [address], 4 13:29:14 TSH, serum, reflex free T4 [address] (Lab), [address] [place], [address], 4 13:29:41 Referral pain management referral - Please call patient to schedule an appointment . Thank you. 2023 024 [email or web address] May Urena MD, 3 [facility], [address], [address], 4 08:59:58 physical therapist referral - *Please call pt to schedule* 2022 023 [email or web address] 256 [facility], [address] [place], [address], 3 09:28:17 client service administrator referral 2022 023 [email or web address] 3 Freddy Hernandez DPAlda, [address] [facility], [address], [place], [address], 3 10:51:35 Procedures None recorded. Surgeries None recorded. Imaging None recorded. Medication Orders hydrocodone 7.5 mg-acetamin ophen 325 mg tablet 2023 024 [id number], [address] [place], [place], [id number], 4 12:11:06 hydrocodone 10 mg-acetamin ophen 325 mg tablet [address] [facility], [address] [place], [place], [id number], 4 11:54:24 Ciprodex 0.3 %-0.1 % ear drops,suspe nsion [address] [facility], [address] [place], [place], [id number], 4 11:55:03 cyclobenzap rine 5 mg tablet 2022 023 [facility] #83861, [address] [place], [place], [id number], 3 18:09:22 Patient TargetsNo targets recorded. Patient Instructions Encounter Date Encounter Id Patient Instructions Last Modified By Organization Details Last Modified Time 09/24/2023 [id number] dementia rating scale-2* [email or web address] Not available 09/24/2023 14:43:24 multi-dimensiona l health assessment questionnaire* [email or web address] Not available 09/24/2023 14:43:28 care plan* Not available 09/24 11:02:39 advance directiv es: care instructions Not available 09/24/2023 11:02:38 advance care planning: care instructions Not available 09/24/2023 11:02:38 Personalized Hea lth Plan and Screening Recommendations Advance Directives - Do you have one? No Advance Directives - Do we have your advance directive on file in your health record? Primary Prevention/Interven tion (prevents or decreases the chance of common diseases from occurring) Smoking Risk: Non Smoker Alcohol Misuse Screening: Negative Weight: Appropriate Physical activity: Appropriate physical activity Nutrition: Good Average Fall Risk (screened today): Low Intermediate Vaccines Pneumococcal: not needed Influenza: declined Chronic Disease Risks Stroke: Low Risk I have no recommendations Act irineo diagnosis, Continue current treatment plan Heart Attack: Low risk I have no recommendations Act irineo diagnosis, Continue current treatment plan Clogging of the Arteries: Low risk I have no recommendations Act irineo diagnosis, Continue current treatment plan Diabetes: Low Risk Active diagnosis, Continue current treatment plan Secondary Prevention/Interven tion (detects treatable diseases before they may cause symptoms, disability, or ) Breast Cancer Screening with mammogram: No screening necessary Cervical/Uterine/Ov shanon Cancer Screening: No screening necessary Osteoporosis Screening: No screening necessary Date Screening Last Performed: Colon Cancer Screening: No screening necessary Date Screening Last Performed: Eye Disease Screening: No Eye exam necessary Dementia Risk: Low Depression Screening: Negative Active diagnosis, Continue current treatment plan Not available 09/24/2023 10:51:41 Reason for Referral Physical Therapist Referral for Pain of toe of left foot *Please call pt to schedule* Referring Physician: Family Janette Jimenez, Encounter Date: 03/25/2023 [employer] Admin Referral for Pain of toe of left foot Referring Physician: Family Janette Jimenez, Encounter Date: 03/25/2023 Pain Management Referral for Neuropathy neuropathy, left side pain (residual of stroke) Please call patient to schedule an appointment. Thank you. Referring Physician: Family Janette Jimenez, Encounter Date: 02/17/2024 Results Created Date Observation Date Name Description Value Unit Range Abnormal Flag Note LastModifiedBy Organization Detail LastModifiedTime 09/26/19 24 09/26/2023 DRUG MONIT OR, PANEL 3, W/CON F, URINE amphetamines NEGATI VE NG/mL <500 Not Available [facility] [address], [place], [address], 09/26/2023 01:15:23 09/26/19 24 09/26/2023 DRUG MONIT OR, PANEL 3, W/CON F, URINE benzodiazepi gloria NEGATI VE NG/mL <100 Not Available [facility], [place], [address], 09/26/2023 01:15:23 09/26/19 24 09/26/2023 DRUG MONIT OR, PANEL 3, W/CON F, URINE cocaine metabolite NEGATI VE NG/mL <150 Not Available [address], [place], [address], 09/26/2023 01:15:23 09/26/19 24 09/26/2023 DRUG MONIT OR, PANEL 3, W/CON F, URINE marijuana metabolite NEGATI VE NG/mL <20 Not Available [address], [place], [address], 09/26/2023 01:15:23 09/26/19 24 09/26/2023 DRUG MONIT OR, PANEL 3, W/CON F, URINE opiates INTERF ERENCE NG/mL <100 abnormal See Note A See Note A Not Available [address], [place], [address], 09/26/2023 01:15:23 09/26/19 24 09/26/2023 DRUG MONIT OR, PANEL 3, W/CON F, URINE oxycodone NEGATI VE NG/mL <100 Not Available [address] [address] [place], [address], 09/26/2023 01:15:23 09/26/19 24 09/26/2023 DRUG MONIT OR, PANEL 3, W/CON F, URINE creatinine 154.3 mg/dL > or = 20.0 Not Available [facility] [address] [address], [place], [address], 09/26/2023 01:15:23 09/26/19 24 09/26/2023 DRUG MONIT OR, PANEL 3, W/CON F, URINE pH 5.9 4.5-9. 0 Not Available [facility] [address] [address], [place], [address], 09/26/2023 01:15:23 09/26/19 24 09/26/2023 DRUG MONIT OR, PANEL 3, W/CON F, URINE oxidant NEGATI VE mcg/m L <200 Not Available [facility] [address] [address], [place], [address], 09/26/2023 01:15:23 09/10/19 24 09/10/2023 MRI, brain + brain stem, w/o contr ast No observ ation record ed. [email or web address] [facility] [address], [place], [address], 09/11/2023 15:13:09 03/30/20 24 03/29/2024 XR, chest , 2 view No observ ation record ed. [email or web address] [facility] [address], [place], [address], 04/14/2024 08:58:41 Result Notes None recorded. Problems Name Problem SNOMED Code Status Onset Date Resolution Date Notes Provider Name and Address Organization Details Recorded Time Neuropath y 807524864 Active 2022 Not Available [facility] 3 04:18:08 Mixed anxiety and depressiv e disorder 773146400 Active 2022 Not Available [facility] 3 04:18:07 Neck pain 81682176 Active 2022 Not Available [facility] 3 04:18:08 Pain of toe of left foot 96704803996 9108 Active 2022 Not Available [facility] 3 04:18:07 Pain in upper limb 253017587 Active 2022 Not Available [facility] 3 04:18:07 Seasonal allergy 558530952 Active 2022 Not Available [facility] 3 04:18:08 Depressiv e disorder 60777435 Active 2022 Not Available [facility] 3 04:18:07 Disorder of eye 991105426 Active 2022 Not Available [facility] 3 04:18:07 Headache 26244930 Active 2022 Not Available [facility] 3 04:18:07 Injury of head 97253779 Active 2022 Not Available [facility] 3 04:18:08 Migraine 00967859 Active 2022 Not Available [facility] 3 04:18:08 Cerebrova scular accident 860630862 Active 2022 Not Available [facility] 3 04:18:07 Left foot drop 19975452286 9105 Active 2022 Not Available [facility] 3 04:18:07 Spasm 79896368 Active 2022 Not Available [facility] 3 04:18:08 Upper respirato ry infection 32480469 Active 2022 VON Dangelo [address], [place], [address] , [facility] 3 08:49:10 Pain of ear 081576245 Active 2023 PHANI Jimenez [address], [address], [place], [address] , [facility] 4 10:59:46 Cough 53919109 Active 2023 ASTRID Jimenez-Anju [address], [place], [address] , [facility] 4 17:00:05 Amenorrhe a 23733131 Active Not Available [facility] 3 04:18:07 Vaginal discharge 771441977 Completed Not Available [facility] 3 03:26:24 Lesion of vulva 584878080 Completed Not Available [facility] 3 03:26:24 Pain in pelvis 91292930 Completed Not Available [facility] 3 03:26:25 Menorrhag ia 168304610 Completed Not Available [facility] 3 03:26:25 Vulvovagi nitis 47103810 Completed Not Available [facility] 3 03:26:25 Vulvitis 33046017 Active Not Available [facility] 3 04:18:08 Dyspareun ia 51568435 Active Not Available [facility] 3 04:18:08 Urgent desire to urinate 10660776 Completed Not Available [facility] 3 03:26:25 65139894 Completed 201701/12/2019 Not Available [facility] 3 03:26:25 Irregular periods 28815075 Active Not Available [facility] 3 04:18:08 Notes:BACK/NECK PROBLEM Some problems listed in Document: #[id number] could not be added to this patient's chart. Please review this document and add these problems to the patient's chart manually as needed. Problem Notes None recorded. Procedures Surgical History Date Name Laterality Status Provider Name and Address Organization Details Recorded Time 09/24/19 24 Medicare Wellness CPT Code, subsequent completed Jena Almeida RN [facility] 09/24/2023 10:36:54 10/14/19 20 Date of Last Pap Smear completed Not Available [facility] 10/23/2022 03:18:50 08/25/19 20 Brain Surgery completed Not Available [facility] 10/23/2022 03:18:52 10/28/19 18 Brain Surgery completed Not Available [facility] 10/23/2022 03:18:52 08/25/19 12 cholecystectomy completed Not Available [facility] 10/23/2022 03:18:52 radical lymph node dissection of neck region completed [facility] 10/[facility]22 03:18:52 Imaging Results Imaging Date Name Status LastModified by Organiz ation Details LastModified Time 09/10/2023 MRI, brain + brain stem, w/o contrast completed [email or web address] [facility] [address], [place], [address], 09/11/2023 15:13:09 03/29/2024 XR, chest, 2 view completed [email or web address] [facility] [address], [place], [address], 04/14/2024 08:58:41 Procedure Notes None recorded. Medical Equipment None Reported. Allergies No known drug allergies Medications Name Sig Start Date Stop Date Status Note LastModified by Organization Details LastModified Time medroxyprog esterone 10 mg tablet TAKE 1 TABLET BY MOUTH DAILY 05/19 completed Not Available Not Available Not Available terconazole 0.4 % vaginal cream Insert 1 applicato rful every day by vaginal route for 7 days. active Not Available Not Available No t Available azelastine 0.05 % eye drops active Not Available Not Available Not Available clindamycin HCl 300 mg capsule Take 1 capsule twice a day by oral route for 7 days. active Not Available Not Available No t Available azithromyci n 250 mg tablet TAKE 2 TABLETS (500 MG) BY ORAL ROUTE ONCE DAILY FOR 1 DAY THEN 1 TABLET (250 MG) BY ORAL ROUTE ONCE DAILY FOR 4 DAYS 05/19 completed Not Available Not Available Not Available fluconazole 150 mg tablet TAKE 1 TABLET BY MOUTH EVERY 72 HOURS 05/19 completed Not Available Not Available Not Available benzonatate 200 mg capsule Take 1 capsule 3 times a day by oral route as needed. 05/19 completed Not Available Not Available Not Available levetiracet am 500 mg tablet TK 1 T PO BID 07/30 completed Not Available Not Available Not Available hydrocodone 5 mg-acetamin ophen 325 mg tablet TAKE 2 TABLETS BY MOUTH EVERY 12 HOURS NEEDED FOR PAIN 06/07 completed Not Available Not Available Not Available promethazin e 12.5 mg tablet active Not Available Not Available Not Available metronidazo le 0.75 % (37.5 mg/5 gram) vaginal gel INSERT 1 APPLICATO RFUL VAGINALLY EVERY DAY AT BEDTIME FOR 5 DAYS 05/19 completed Not Available Not Available Not Available terconazole 0.8 % vaginal cream 10/14 completed Not Available Not Available Not Available permethrin 5 % topical cream 05/08 completed Not Available Not Available Not Available sumatriptan 50 mg tablet TAKE 1 TABLET BY MOUTH NEEDED 05/19 completed Not Available Not Available Not Available topiramate 25 mg tablet TAKE 1 TABLET BY MOUTH TWICE DAILY 05/19 completed Not Available Not Available Not Available triamcinolo ne acetonide 0.5 % topical ointment APPLY TOPICALLY TO THE AFFECTED AREA TWICE DAILY 05/19 completed Not Available Not Available Not Available metronidazo le 500 mg tablet TAKE 1 TABLET BY MOUTH EVERY 12 HOURS FOR 7 DAYS 05/19 completed Not Available Not Available Not Available acetaminoph en 300 mg-codeine 30 mg tablet TK ONE T PO Q 8 H PRN active Not Available Not Available No t Available sulfamethox azole 800 mg-trimetho prim 160 mg tablet TK 1 T PO Q 12 H TAT 12/15 completed Not Available Not Available Not Available hydrocodone 10 mg-acetamin ophen 325 mg tablet TAKE 1 TABLET BY MOUTH EVERY 12 HOURS NEEDED 05/19 completed Not Available Not Available Not Available tramadol 50 mg tablet active Not Available Not Available No t Available butalbital- acetaminoph en-caffeine 50 mg-325 mg-40 mg tablet TK ONE T PO Q SIX H PRF MANTILLA OR MIGRAINE 08/27 completed Not Available Not Available Not Available baclofen 20 mg tablet TK ONE T PO TID PRN 07/30 completed Not Available Not Available Not Available oxycodone-a cetaminophe n 5 mg-325 mg tablet TK 1 T PO BID PRN 07/30 completed Not Available Not Available Not Available amoxicillin 875 mg tablet active Not Available Not Available Not Available citalopram 20 mg tablet TK 1 T PO QD 05/08 completed Not Available Not Available Not Available amitriptyli ne 25 mg tablet TK 1 T PO QHS active Not Available Not Available No t Available methocarbam ol 750 mg tablet TK 1 T PO Q 6 H PRN 05/08 completed Not Available Not Available Not Available DOK 100 mg capsule TK ONE C PO BID 10/14 completed Not Available Not Available Not Available baclofen 10 mg tablet TK 1 T PO TID active Not Available Not Available No t Available hydrocodone 7.5 mg-acetamin ophen 325 mg tablet Take 1 tablet every 12 hours by oral route as needed. 2023 active Not Available Not Available Not Avai lable cephalexin 500 mg capsule TK 1 C PO TID FOR 5 DAYS 05/08 completed Not Available Not Available Not Available ferrous sulfate 325 mg (65 mg iron) tablet 10/14 completed Not Available Not Available Not Available ranitidine 150 mg tablet TK 1 T PO BID active Not Available Not Available No t Available prednisone 50 mg tablet TAKE 1 TABLET BY MOUTH DAILY FOR 5 DAYS 05/19 completed Not Available Not Available Not Available progesteron e micronized 200 mg capsule Take 2 capsules every day by oral route at bedtime for 10 days. 05/19 completed Not Available Not Available Not Available venlafaxine 50 mg tablet 06/14 completed Not Available Not Available Not Available gabapentin 300 mg capsule TAKE 1 CAPSULE BY MOUTH THREE TIMES DAILY 05/19 completed Not Available Not Available Not Available sertraline 25 mg tablet TAKE 1 TABLET BY MOUTH EVERY DAY active Not Available Not Available No t Available gabapentin 100 mg capsule TK 1 C PO TID FOR 30 DAYS 07/30 completed Not Available Not Available Not Available ergocalcife rol (vitamin D2) 1,250 mcg (50,000 unit) capsule TK 1 C PO EVERY WEEK active Not Available Not Available No t Available ibuprofen 600 mg tablet 10/14 completed Not Available Not Available Not Available polyethylen e glycol 3350 17 gram/dose oral powder active Not Available Not Available Not Available albuterol sulfate HFA 90 mcg/actuati on aerosol inhaler INHALE 2 PUFFS BY MOUTH EVERY 4-6 HOURS NEEDED FOR SHORTNESS OF BREATH OR WHEEZING 05/19 completed Not Available Not Available Not Available heparin (porcine) 10,000 unit/mL injection solution 04/20 completed Not Available Not Available Not Available norethindro ne (contracept irineo) 0.35 mg tablet 10/14 completed Not Available Not Available Not Available ondansetron 4 mg disintegrat ing tablet DISSOLVE 1 TABLET ON THE TONGUE EVERY 8 HOURS NEEDED FOR NAUSEA OR VOMITING 05/19 completed Not Available Not Available Not Available fluticasone propionate 50 mcg/actuati on nasal spray,suspe nsion SHAKE LIQUID AND USE 1 SPRAY IN EACH NOSTRIL EVERY DAY 05/19 completed Not Available Not Available Not Available medroxyprog esterone 150 mg/mL intramuscul ar suspension ADMINISTE R 1 ML IN THE MUSCLE EVERY 3 MONTHS 05/12 completed Not Available Not Available Not Available loratadine 10 mg tablet TAKE 1 TABLET BY MOUTH EVERY DAY 05/19 completed Not Available Not Available Not Available naproxen 500 mg tablet TK ONE T PO BID PRN P 05/12 completed Not Available Not Available Not Available Artificial Tears (polyvinyl alcohol) 1.4 % eye drops INT 1 GTT AEY QID PRF DRY EYES. 12/15 completed Not Available Not Available Not Available diazepam 5 mg tablet 05/12 completed Not Available Not Available Not Available metoclopram yesenia 10 mg tablet TK 1 T PO Q 6 TO 8 H PRN 10/14 completed Not Available Not Available Not Available amoxicillin 875 mg-potassiu m clavulanate 125 mg tablet TAKE 1 TABLET BY MOUTH EVERY 12 HOURS FOR 7 DAYS 05/19 completed Not Available Not Available Not Available enoxaparin 60 mg/0.6 mL subcutaneou s syringe 10/14 completed Not Available Not Available Not Available NuvaRing 0.12 mg-0.015 mg/24 hr vaginal Insert 1 vaginal ring every month by vaginal route. 2012 active Not Available Not Available Not Avai lable [employer] a 150 mg/mL intramuscul ar syringe Inject 1 mL every 3 months by intramusc ular route. 05/19 completed Not Available Not Available Not Available Mononessa (28) 0.25 mg-35 mcg tablet TK 1 T PO QD 05/08 completed Not Available Not Available Not Available cyclobenzap rine 5 mg tablet TAKE 1 TO 2 TABLETS BY MOUTH THREE TIMES DAILY NEEDED FOR MUSCLE SPASM active Not Available Not Available No t Available ciprofloxac in 0.3 %-dexametha sone 0.1 % ear drops,suspe nsion SHAKE LIQUID AND INSTILL 4 DROPS TO AFFECTED EAR TWICE DAILY FOR 7 DAYS 05/19 completed Not Available Not Available Not Available Alcohol Prep Pads 10/14 completed Not Available Not Available Not Available duloxetine 20 mg capsule,del ayed release Take 1 capsule every day by oral route. 12/02 completed Not Available Not Available Not Available duloxetine 60 mg capsule,del ayed release TAKE 1 CAPSULE BY MOUTH DAILY 05/19 completed Not Available Not Available Not Available Lutera (28) 0.1 mg-20 mcg tablet TAKE 1 TABLET BY MOUTH EVERY DAY 12/15 completed Not Available Not Available Not Available peg 3350 240 gram-electr olytes 22.72 gram-6.72 g-5.84 g powdr for soln active Not Available Not Available Not Available ProChamber USE DIRECTED WITH INHALER active Not Available Not Available No t Available BD Ultra-Fine Eunice Pen Needle 32 gauge x 10/14 completed Not Available Not Available Not Available Xulane 150 mcg-35 mcg/24 hr transdermal patch Apply 1 patch every week by transderm al route. active Not Available Not Available No t Available Nurtec ODT 75 mg disintegrat ing tablet active Not Available Not Available N ot Available Qulipta 60 mg tablet TAKE 1 TABLET BY MOUTH DAILY 05/19 completed Not Available Not Available Not Available Qulipta 30 mg tablet TAKE 1 TABLET BY MOUTH EVERY NIGHT NEEDED active Not Available Not Available No t Available Vitals Date Recorded Body height Body mass index (BMI) Body weight Body temperature Oxygen saturation Oxygen saturation in Arterial blood by Pulse oximetry Heart rate Systolic blood pressure Diastolic blood pressure Provider Name and Address Organization Details Last Updated DateTime 3 167.64 cm 25.8 kg/m2 17371.7 8 g 97.6 [degF] 98 % 98 % 84 /min 124 mm[Hg] 68 mm[Hg] Angelique Alcaraz CMA [employer] [facility] 3 10:05:03 Date Recorded Body height Body mass index (BMI) Body weight Provider Name and Address Organization Details Last Updated DateTime 05/12/2023 167.64 cm 25.3 kg/m2 82563 g Roxy Dudley [employer] [facility] 05/12/2023 12:02:55 Date Recorded Body height Body mass index (BMI) Body weight Body temperature Heart rate Oxygen saturation Oxygen saturation in Arterial blood by Pulse oximetry Systolic blood pressure Diastolic blood pressure Provider Name and Address Organization Details Last Updated DateTime 4 167.64 cm 27.1 kg/m2 99669.5 2 g 98.6 [degF] 75 /min 100 % 100 % 118 mm[Hg] 78 mm[Hg] Jena Almeida RN [facility] Naldo [facility] 4 10:40:28 Date Recorded Body height Body mass index (BMI) Body weight Body temperature Heart rate Oxygen saturation Oxygen saturation in Arterial blood by Pulse oximetry Systolic blood pressure Diastolic blood pressure Provider Name and Address Organization Details Last Updated DateTime 4 167.64 cm 26.6 kg/m2 62418.7 4 g 98.7 [degF] 96 /min 98 % 98 % 116 mm[Hg] 80 mm[Hg] Jena Almeida RN [facility] 4 12:00:07 Date Recorded Body height Body mass index (BMI) Body weight Body temperature Heart rate Oxygen saturation Oxygen saturation in Arterial blood by Pulse oximetry Systolic blood pressure Diastolic blood pressure Provider Name and Address Organization Details Last Updated DateTime 4 167.64 cm 27.1 kg/m2 15712.5 2 g 99.1 [degF] 92 /min 100 % 100 % 132 mm[Hg] 88 mm[Hg] Jnea Almeida RN [facility] Naldo [facility] 4 11:56:16 Social History Question Answer Notes LastModified by Organizat ion Details LastModified Time Tobacco Smoking Status Never Smoker Betty mahan [facility] 09/24/2023 10:34:27 Do You Have An Advance Directive? No Declined [id number] Information not available 10/23/2022 What Is Your Level Of Alcohol Consumption? None [id number] Information not available 10/23/2022 What Is Your Level Of Caffeine Consumption? Occasional [id number] Information not available 10/23/2022 In The 14 Days Before Symptom Onset, Have You Had Close Contact With A Laboratory-confir med COVID-19 While That Case Was Ill? No Information not available 09/24/2023 In The 14 Days Before Symptom Onset, Have You Had Close Contact With A Person Who Is Under Investigation For COVID-19 While That Person Was Ill? No [email or web address] Information not available 09/24/2023 What Type Of Diet Are You Following? 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 Yes [email or web address] Information not available 09/24/2023 What Was The Date Of Your Most Recent Tobacco Screening? 05/16/2022 [email or web address] Information not available 09/24/2023 Do You Use Your Seat Belt Or Car Seat Routinely? Yes Information not available 09/24/2023 Do You Use Any Illicit Or Recreational Drugs? No [email or web address] Information not available 09/24/2023 Do You Use Sunscreen Routinely? Yes [email or web address] Information not available 09/24/2023 Has Tobacco Cessation Counseling Been Provided? No [email or web address] Information not available 09/24/2023 Do You Have Any Dietary Restrictions? No Information not available 09/24/2023 Do You Or Have You Ever Used Any Other Forms Of Tobacco Or Nicotine? No [email or web address] Information not available 09/24/2023 Sex: Unknown Functional Status Question Answer Note LastModified by Interview Master Details LastModified Time What is your exercise level? Occasional [id number] Information not available 10/23/2022 Mental Status None recorded. Family History Relationship Description Onset Age of this Age Resolved Age Notes LastModified by Organization Details LastModified Time Mother No current problems or disability [id number] Not available 10/23/2022 03:18:58 Paternal Grandmother Family history of stroke [id number] Not available 10/23/2022 03:18:58 Father Seizure disorder [id number] Not available 10/23/2022 03:18:58 Maternal Grandmother Seizure disorder [id number] Not available 10/23/2022 03:18:58 Paternal Grandmother Cerebrovascu lar accident [email or web address] Not available 12:08:37 Brother Blood coagulation disorder LUPUS [email or web address] Not available 2022 12:08:52 Medical History Condition Response BLINDNESS N RHEUMATIC FEVER N KIDNEY STONES N BLADDER PROBLEMS N MRSA N OTHER # 1 N POLIO N LUNG DISEASE/DISORDER N HISTORY OF DRUG ABUSE N RADIATION / CHEMOTHERAPY N COPD N Other # 2 N BLOOD DISEASES N SURGERY N MUMPS N SHINGLES N FEMALE PROBLEMS / INFECTIONS N BOWEL PROBLEMS N DEPRESSION (INCLUDING POST ) Y STROKE/TIA Y THYROID DISEASE N ULCERS N BENIGN PROSTATIC HYPERPLASIA N MEASLES N CERVICALGIA N TB SKIN TEST N HYPOTENSION N MYOCARDIAL INFARCTION N PARAPELGIA N OBESITY N GERD/NAUSEA N ANEURYSM N URINARY/BLADDER/KIDNEY PROBLEMS N CORONARY ARTERY DISEASE (CAD) N MENIERE'S DISEASE N ADDICTION CONCERNS N ENDOMETRIOSIS N USE OF BLOOD THINNERS N SKIN PROBLEMS N EMPHYSEMA N GASTROINTESTINAL DISORDER N MUSCLE,JOINT OR BONE PROBLEMS N GASTROINTESTINAL BLEEDING N BLOOD CLOTS N ASTHMA N CATARACTS N ERECTILE DYSFUNCTION N GI PROBLEMS N CHF N Low Testosterone N NEUROPATHY N INFERTILITY N AIDS/HIV N FRACTURES N CHEMOTHERAPY / RADIATION N VISION/EYE PROBLEMS N LIVER DISEASE N MALE HYPOGONADISM N HYPERTENSION N TOURETTE'S N ANXIETY DISORDER N BLOOD TRANSFUSION N ANEMIA/BLOOD DISORDER N CHRONIC EAR INFECTIONS N BRONCHITIS N TUBERCULOSIS N GLAUCOMA N FOOT PROBLEM N DIVERTICULITIS N SLEEP APNEA N CHICKENPOX N ALLERGIES/HAYFEVER Y INFECTIOUS DISEASE N PROSTATE N HEART ARRHYTHMIA N INSOMNIA N HIGH CHOLESTEROL / HYPERLIPIDEMIA N EYE PROBLEMS Y HYPERTHYROIDISM N EATING DISORDER N EDEMA N CHRONIC PAIN SYNDROME N CONSTIPATION N CAROTID BLOCKAGE N BACK / NECK PROBLEMS Y HAVE YOU BEEN HOSPITALIZED OR SEEN IN [facility] IN THE PAST YEAR ? N ATHEROSCLEROSIS N BREAST PROBLEMS N DIALYSIS N ECZEMA N FIBROMYALGIA N OSTEOPOROSIS N ARTHRITIS N NO SIGNIFICANT PAST MEDICAL HISTORY N APPENDICITIS N DIABETES, TYPE N BAD TEETH N HEARTBURN / REFLUX N ADD/ADHD N AUTISM SPECTRUM DISORDER (ASD) N HEPATITIS / LIVER DISEASE N PULMONARY DISEASE N GOUT N SLEEP DISORDER N ALZHEIMER'S DISEASE N PAIN N DEMENTIA N HERPES N SEIZURES/EPILEPSY N HEADACHES/MIGRAINES Y VASCULAR DISEASE N PACEMAKER N DIZZINESS N HEART DISEASE/HEART PROBLEMS N KIDNEY DISEASE N SCARLET FEVER N MULTIPLE SCLEROSIS N DEVELOPMENTAL OR BEHAVIORAL DISORDERS N MENTAL DISORDER/ILLNESS N CANCER: SPECIFY N CARDIAC ARRHYTHMIA N PNEUMONIA N ATRIAL FIBRILLATION N Gall Stones N PULMONARY EMBOLISM N AUTOIMMUNE DISEASE N Gynecological History Statement/Question Response How many live births 1 Abnormal Pap Y Date of LMP Dislike of Light during Menstrual Headac he N Date of Last Pap Date of Last Pap Smear 10/14/2019 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 11 Breast Problems no Obstetrics History GPAL:G 1 P 1 0 0 1 Type Value Full Term 1 Living 1 Total 1 Past Encounters Encounter ID Performer Location Encounter Start Date Encounter Closed Date Diagnosis/Indication Diagnosis SNOMED-CT Code Diagnosis ICD10 Code Diagnosis Note [id number] _ATHENA_M IGRATION_ DEFAULT_1 _1 , 11/29/2020 00:00:00 11/29/2020 15:18:22 [id number] _ATHENA_M IGRATION_ DEFAULT_1 _1 , 02/21/2021 00:00:00 02/21/2021 16:50:03 [id number] _ATHENA_M IGRATION_ DEFAULT_1 _1 , 05/16/2021 00:00:00 05/16/2021 15:46:58 [id number] _ATHENA_M IGRATION_ DEFAULT_1 _1 , 06/07/2021 00:00:00 06/07/2021 14:30:33 [id number] _ATHENA_M IGRATION_ DEFAULT_1 _1 , 08/10/2021 00:00:00 08/10/2021 10:20:02 [id number] [facility] [place] [address] [place] [address] 09/19/2021 00:00:00 09/19/2021 11:38:12 [id number] [facility] [place] [address] [place] [address] 12/17/2021 00:00:00 12/17/2021 11:38:19 [id number] [facility] [place] [address] [place] [address] 03/18/2022 00:00:00 03/18/2022 11:24:40 [id number] [facility] [place] [address] [place] [address] 05/17/2022 00:00:00 05/17/2022 12:32:59 [id number] [facility] [place] [address] [place] [address] 08/27/2022 00:00:00 08/27/2022 17:51:56 [id number] VON Dangelo [facility] [place] [address] [place] [address] 12/02/2022 11:06:02 12/02/2022 11:39:01 Mixed anxiety and depressive disorder 346440254 F41.8 Doing well on sertraline but has noticed some drowsiness . She would like to continue it as it has helped mood. Will continue to monitor. Neuropathy 474920230 G62 .9 UDS updated 08/27/22. No refill needed today. History of cerebrovascular accident [id number] Z86.73 Will get her setup with new neurologis t as Dr. Urena has retired and it is time for her to get updated scans. She has new custom orthotics for left leg. 08/27/22: 2018. Had stroke on the table during brain surgery.De ficits on left side, cannot use left hand or left ankle. Walks with a cane and leg brace and has to use wheelchair /power chair when walking long distances. Neurologis t (Dr. Urena) f/u every 3 months.Alaina ro surgeon (U) f/u every 2 years for repeat MRIs. [id number] PHANI iJmenez [facility] [address] [place] [address] 03/25/2023 10:00:51 03/25/2023 10:27:53 Neck pain 67634974 M54.2 chronic r/t muscle spasm. Has tried muscle relaxers in the past, but now only treats with pain meds. Will trial cyclobenza lula Pain of to e of left foot [id number] 67869 M79.675 Pt reports curling of toes to left foot when she walks making it painful. [id number] Freddy Hernandez DPM [facility] [address] [place] [address] 05/12/2023 11:57:59 05/12/2023 12:23:32 Left foot drop [id number] 14587 M21.372 recommend continuing custom AFOfollow- up with Neurology Spasm 92145863 R25.2 currently on cyclobenza prineconti nue with neurologyr ecommend crest pad for toe spasms to prevent wounds and allow offloading to the distal tip of the toefollow- up as needed [id number] PHANI Jimenez [facility] [address] [address] 09/24/2023 10:33:19 09/24/2023 11:35:20 Adult health examination [id number] Z00.00 -Encourage 30 mins of daily exercise-t marita to stay active-Yael frias woman exams-pap in -labs obtained Screening for disorder 343118300 Z13.9 Long-term drug therapy 381443359 Z79.899 Pain of ear 184931282 H9 2.09 [id number] PHANI Jimenez [facility] Primary Care [address] [address] 02/17/2024 11:37:00 02/17/2024 12:23:06 Neuropathy 317171743 G62.9 Drug of abuse screen 897 75349 Z02.83 Pt denies any lending, selling, or borrowing of medication s. Denies any cp, sob, palpitatio ns, or unusual weight loss.Revie wed controlled substance agreement requiremen ts. Refill given.[place] PDMP checked today. [id number] Ab PHANI Riggs [facility] Primary [facility] [address] [address] 05/19/2024 11:48:36 05/19/2024 12:52:20 Neuropathy [id number] G62.9 neurologis t is trying to send her to pain management will be seeing botox specialist next monthrefil l hydrocodon e Drug of abuse screen 897 40950 Z02.83 Pt denies any lending, selling, or borrowing of medication s. Denies any cp, sob, palpitatio ns, or unusual weight loss.Revie wed controlled substance agreement requiremen ts. Refill given.[place]MP checked today. Health Concerns Section Related Observation LastModified by Organization Detai ls LastModified Time None Recorded Concern Status LastModified by Organization Details LastModified Time None Recorded Advance Directives Directive N: declined Payers Encounter Date Sequence Insurance Name Policy Number Policy Bar[place] Covered Member ID Barahona Member ID Guarantor Name 03/25/2023 1 [facility] (MEDICARE REPLACEMENT/AD VANTAGE - HMO) [id number] Shahnaz L Mordis [id number] Shahnaz L Mordis 03/25/2023 2 [place] MED[place]ARE [place] MEDICARE REPLACEMENT PRIMARY) Shahnaz Mordis [id number] Shahnaz L Mordis 05/12/2023 1 [facility] (MEDICARE REPLACEMENT/AD VANTAGE - HMO) [id number] Shahnaz L Mordis [id number] Shahnaz L Mordis 05/12/2023 2 [place]PLACEMENT [place]) Shahnaz Mordis [id number] Shahnaz L Mordis 09/24/2023 1 [facility] (MEDICARE REPLACEMENT/AD VANTAGE - HMO) [id number] Shahnaz L Mordis [id number] Shahnaz L Mordis 09/24/2023 2 [place]IC[place]PLACEMENT PRIMARY) Shahnaz Mordis [id number] Shahnaz L Mordis 02/17/2024 1 [facility] (MEDICARE REPLACEMENT/AD VANTAGE - HMO) [id number] Shahnaz L Mordis [id number] Shahnaz L Mordis 02/17/2024 2 [place]IC[place] REPLACEMENT PRIMARY) Shahnaz Mordis [id number] Shahnaz L Mordis 05/19/2024 1 [facility] (MEDICARE REPLACEMENT/AD VANTAGE - HMO) [id number] Shahnaz L Mordis [id number] Shahnaz L Mordis 05/19/2024 2 [place] OR MEDICARE REPLACEMENT PRIMARY) Shahnaz Mordis [id number] Shahnaz L Mordis Notes Date Note Type Note Provider Name and Address Organization Details Recorded Time 03/25/2023 text/html Pt is here for 3 month med f/u. Remains stable on all medications. No complaints related to meds. Pt had stroke 4 years ago. She is having issues with left foot curling toes when she tries to stand and is not getting much help from the brace, even with a strap tightened over her toes. Has not been to physical therapy in 5 years. Ab Riggs, ASTRID-C [address] [place] [address], [facility] [address], [place], [address], [facility] [employer] [facility] 03/25/2023 18:09:30 05/12/2023 text/html . Patient is a 27-year-old female who presents the office with complaints toe spasms. Patient had a stroke in 2018 while undergoing brain surgery. Patient since the stroke has developed neurological issues on her left side with drop foot and spasms of her left lower extremity. Patient states that is difficult for her to walk which she presents in an AFO that has been padded with foam at the distal aspect of the toes. Patient states that her pain level ranges from 6-8/10. Patient denies any wounds to the toes. Patient describes the pain as sharp shooting pains when she has spasms. Patient is currently undergoing physical therapy which I recommend she continue performing as well as utilizing the AFO for stabilization of the ankle. Patient was recommended to utilize toe crest pads to prevent significant spasms of the toes and to elevate the digits to prevent wounds to the distal tips of her toes. Freddy Hernandez DPM [address] [facility], [address], [facility] [employer] [facility] 05/12/2023 12:20:31 09/24/2023 text/html Pt is here for annual visit PHANI Jimenez [address] [facility] [address] [address], [place], [address], [employer] [facility] [employer] [facility] 09/24/2023 12:41:06 02/17/2024 text/html pt is here for f/u PHANI Easton [address] [facility] [address], [address], [employer] [facility] [employer] [facility] 02/17/2024 12:49:52 05/19/2024 text/html pt is here for f/u PHANI Easton [address] [employer], [address], [employer] [facility] [employer] 05/19/2024 12:27:42 OBGyn Episode No OBEpisode recorded.
== END 2024-10-07 15:57 | disposition home or self-care (01) ==
PROVIDERS: PCP Family Medicine; Visit Provider Physical Medicine & Rehabilitation Pain Medicine
DX: M19.012 Primary osteoarthritis, left shoulder (principal); M19.011 Primary osteoarthritis, right shoulder; M19.09 Primary osteoarthritis, other specified site; M17.0 Bilateral primary osteoarthritis of knee; M16.0 Bilateral primary osteoarthritis of hip
CPT/HCPCS: 72170; 73030; 73502; 73564

== ENCOUNTER 2024-10-20 09:44 | Outpatient (CLI) | payer MEDICARE, MEDICAID, SELFPAY ==
--- NOTE | ~2024-10-20 | MR_ITS ---
EXAMINATION: MR cervical spine wo con DATE: 10/20/2024 10:27 INDICATION: Cervical radiculopathy TECHNIQUE: Magnetic resonance imaging (MRI) of the cervical spine was performed without intravenous c ontrast. Sequences included sagittal T2-weighted FSE, sagittal T2-weighted FS FSE, sagittal T1-weight ed FSE, axial MERGE and axial T2-weighted FSE. COMPARISON: None FINDINGS: Straightening of the normal cervical lordosis. No spondylolisthesis or facet subluxation. Atlantoaxia l articulation is normal. Vertebral body heights are normal. Bone marrow signal intensity is normal . Intervertebral disc heights are normal. Cord signal intensity is normal. Cervical soft tissues are unremarkable. The following disc levels are specifically discussed: C2-C3: The disc does not extend beyond the endplate margin. There is no uncovertebral joint osteoarth ritis. There is moderate bilateral facet joint osteoarthritis. There is mild left neural foraminal st enosis. There is no central canal stenosis. C3-C4: The disc does not extend beyond the endplate margin. There is mild left uncovertebral joint os teoarthritis. There is bilateral facet joint osteoarthritis. There is mild left neural foraminal sten osis. There is no central canal stenosis. C4-C5: Disc is minimally bulging. There is mild bilateral uncovertebral joint osteoarthritis. There i s mild left and moderate right facet joint osteoarthritis. There is no neural foraminal stenosis. The re is no central canal stenosis. C5-C6: Disc is minimally bulging. There is mild bilateral uncovertebral joint osteoarthritis. There i s mild bilateral facet joint osteoarthritis. There is no neural foraminal stenosis. There is no centr al canal stenosis. C6-C7: Disc is minimally bulging. There is mild right uncovertebral joint osteoarthritis. There is mi ld right facet joint osteoarthritis. There is no neural foraminal stenosis. There is no central canal stenosis. C7-T1: The disc does not extend beyond the endplate margin. There is mild right uncovertebral joint o steoarthritis. There is mild right and mild to moderate left facet joint osteoarthritis. There is mil d left neural foraminal stenosis. There is no central canal stenosis. IMPRESSION: 1. Minimal cervical spondylosis with multilevel mild to moderate facet osteoarthritis. Reviewed, dictated and finalized at location B. OELECTRIC POWERPLANT SUPERVISOR IMPRESSION: 1. Minimal cervical spondylosis with multilevel mild to moderate facet osteoart hritis.
--- NOTE | ~2024-10-20 | MR_ITS ---
EXAMINATION: MR lumbar spine wo con DATE: 10/20/2024 10:46 INDICATION: Lumbar radiculopathy TECHNIQUE: Magnetic resonance imaging (MRI) of the lumbar spine was performed without intravenous con trast. Sequences included sagittal T2-weighted FSE, sagittal T2-weighted FS FSE, sagittal T1-weighted FSE, and axial T2-weighted FSE. COMPARISON: None FINDINGS: 3 mm retrolisthesis L5 on S1. Alignment is otherwise normal. Vertebral body heights are normal. Norm al marrow signal. Disc heights are normal. The conus medullaris terminates at L1-L2. There is normal signal in the caudal spinal cord. Paravertebral soft tissues are unremarkable. The following disc lev els are specifically discussed: T12-L1: The disc does not extend beyond the endplate margin. There is mild bilateral facet joint oste oarthritis. There is no neural foraminal stenosis. There is no central canal stenosis. L1-L2: The disc does not extend beyond the endplate margin. There is mild bilateral facet joint osteo arthritis. There is no neural foraminal stenosis. There is no central canal stenosis. L2-L3: The disc does not extend beyond the endplate margin. There is mild bilateral facet joint osteo arthritis. There is no neural foraminal stenosis. There is no central canal stenosis. L3-L4: The disc does not extend beyond the endplate margin. There is mild bilateral facet joint osteo arthritis. There is no neural foraminal stenosis. There is no central canal stenosis. L4-L5: Small bilateral foraminal zone disc protrusions. There is moderate right and moderate left fac et joint osteoarthritis. There is mild bilateral neural foraminal stenosis. There is no central canal stenosis. L5-S1: Disc is mildly bulging. There is mild to moderate bilateral facet joint osteoarthritis. There is mild bilateral neural foraminal stenosis. There is no central canal stenosis. IMPRESSION: 1. Minimal lumbar spondylosis with mild to moderate lower lumbar predominant facet osteoarthritis. Reviewed, dictated and finalized at location B. UTIVE LEGAL SECRETARY IMPRESSION: 1. Minimal lumbar spondylosis with mild to moderate lower lumbar predominant fa cet osteoarthritis.
--- OUTSIDE RECORDS SUMMARY | 2024-10-20 10:49 | XMS_ITS | Referral Summary ---
Author Organization [facility] Address [address] [place] [address] Care Team Providers Care Supervisor Cell Room Name Role Phone Collin Mckeon MD Primary Care Provider [phone] Encounters Date Type Department Care Team Description 10/13/2024 10:04 AM TIRE SETTER - 10/13/2024 11:59 PM TIRE SETTER Hospital Encounter [facility] ([facility]) [address] [place] [address] Discharge Disposition: Discharge to home or self care 10/13/2024 9:51 AM TIRE SETTER - 10/13/2024 11:59 PM TIRE SETTER Hospital Encounter [facility] ([facility]) [address] [place] [address] Discharge Disposition: Discharge to home or self care 10/13/2024 9:46 AM TIRE SETTER - 10/13/2024 11:59 PM TIRE SETTER Hospital Encounter [facility] ([facility]) [address] [place] [address] Discharge Disposition: Discharge to home or self care 10/13/2024 9:43 AM TIRE SETTER - 10/13/2024 11:59 PM TIRE SETTER Hospital Encounter [facility] ([facility]) [address] [place] [address] Discharge Disposition: Discharge to home or self care 10/13/2024 9:34 AM TIRE SETTER - 10/13/2024 11:59 PM TIRE SETTER Hospital Encounter [facility] ([facility]) [address] [place] [address] Discharge Disposition: Discharge to home or self care 10/13/2024 9:31 AM TIRE SETTER - 10/13/2024 11:59 PM TIRE SETTER Hospital Encounter [facility] ([facility]) [address] [place] [address] Discharge Disposition: Discharge to home or self care 10/13/2024 9:30 AM TIRE SETTER - 10/13/2024 11:59 PM TIRE SETTER Hospital Encounter [facility] ([facility]) [address] [place] [address] Discharge Disposition: Discharge to home or self care 10/13/2024 9:28 AM TIRE SETTER - 10/13/2024 11:59 PM TIRE SETTER Hospital Encounter [facility] ([facility]) [address] [place] [address] Discharge Disposition: Discharge to home or self care 10/13/2024 9:26 AM TIRE SETTER - 10/13/2024 11:59 PM TIRE SETTER Hospital Encounter [facility] ([facility]) [address] [place] [address] Discharge Disposition: Discharge to home or self care 10/13/2024 9:24 AM TIRE SETTER - 10/13/2024 11:59 PM TIRE SETTER Hospital Encounter [facility] ([facility]) [address] [place] [address] Discharge Disposition: Discharge to home or self care from Last 3 Months Allergies No known active allergies Medications diazePAM [...] Tobacco: Never Tobacco Cessation:Counseling Given: Not Answered Comments No Sex and Gender Information Value Date Recorded Sex Assigned at Not on file Legal Sex Female 10:11 PM TIRE SETTER Gender Identity Not on file Sexual Orientation Not on file Last Filed Vital Signs Vital Sign Reading Time Taken Comments Blood Pressure 143/60 08/11/2022 9:07 PM TIRE SETTER Pulse 100 08/11/2022 9:07 PM TIRE SETTER Temperature 36.6 C (97.9 F) 08/11/2022 9:07 PM TIRE SETTER Respiratory Rate 16 08/11/2022 9:07 PM TIRE SETTER Oxygen Saturation 99% 08/11/2022 9:07 PM TIRE SETTER Inhaled Oxygen Concentration - - Weight 71.2 kg (157 lb) 08/11/2022 9:07 PM TIRE SETTER Height 167.6 cm (5' 6 ) 08/11/2022 9:07 PM TIRE SETTER Body Mass Index 25.34 08/11/2022 9:07 PM TIRE SETTER Plan of Treatment Not on file Procedures Procedure Name Priority Date/Time Associated Diagnosis Comments NEURO MR OUTSIDE REFERENCE Routine 10/13/2024 10:04 AM TIRE SETTER NEURO MR OUTSIDE REFERENCE Routine 10/13/2024 9:51 AM TIRE SETTER Diagnosis unknown NEURO CT OUTSIDE REFERENCE Routine 10/13/2024 9:46 AM TIRE SETTER Diagnosis unknown NEURO MR OUTSIDE REFERENCE Routine 10/13/2024 9:43 AM TIRE SETTER NEURO MR OUTSIDE REFERENCE Routine 10/13/2024 9:34 AM TIRE SETTER NEURO MR OUTSIDE REFERENCE Routine 10/13/2024 9:31 AM TIRE SETTER Diagnosis unknown NEURO MR OUTSIDE REFERENCE Routine 10/13/2024 9:30 AM TIRE SETTER NEURO MR OUTSIDE REFERENCE Routine 10/13/2024 9:28 AM TIRE SETTER NEURO CT OUTSIDE REFERENCE Routine 10/13/2024 9:26 AM TIRE SETTER NEURO CT OUTSIDE REFERENCE Routine 10/13/2024 9:24 AM TIRE SETTER from Last 3 Months Results * Neuro MR Outside Reference (10/13/2024 10:04 AM TIRE SETTER) Impressions [facility] - 10/13/2024 10:04 AM TIRE SETTER These images are for Reference purposes only and have not been reviewed by [facility] Radiology. There will be no report generated by a [facility] Radiologist. Narrative [facility] - 10/13/2024 10:04 AM TIRE SETTER EXAMINATION: Images For Reference Purposes Only Jose Lackey MD IMG MRI PROCEDURES Final R esult Performing Organization Address [facility] de Phone Number [facility] * Neuro MR Outside Reference (10/13/2024 9:51 AM TIRE SETTER) Impressions [facility] - 10/13/2024 9:51 AM TIRE SETTER These images are for Reference purposes only and have not been reviewed by [facility] Radiology. There will be no report generated by a [facility] Radiologist. Narrative [facility] - 10/13/2024 9:51 AM TIRE SETTER EXAMINATION: Images For Reference Purposes Only Jose Lackey MD IMG MRI PROCEDURES Final R esult Performing Organization Address [facility] de Phone Number [email or web address] * Neuro CT Outside Reference (10/13/2024 9:46 AM TIRE SETTER) Impressions [facility] - 10/13/2024 9:46 AM TIRE SETTER These images are for Reference purposes only and have not been reviewed by [facility] Radiology. There will be no report generated by a [facility] Radiologist. Narrative [facility] - 10/13/2024 9:46 AM TIRE SETTER EXAMINATION: Images For Reference Purposes Only Jose Lackey MD IMG CT PROCEDURES Final Re sult Performing Organization Address [facility] de Phone Number [email or web address] * Neuro MR Outside Reference (10/13/2024 9:43 AM TIRE SETTER) Impressions [facility] - 10/13/2024 9:43 AM TIRE SETTER These images are for Reference purposes only and have not been reviewed by [facility] Radiology. There will be no report generated by a [facility] Radiologist. Narrative [facility] - 10/13/2024 9:43 AM TIRE SETTER EXAMINATION: Images For Reference Purposes Only Jose Lackey MD IMG MRI PROCEDURES Final R esult Performing Organization Address [facility] Co de Phone Number [email or web address] * Neuro MR Outside Reference (10/13/2024 9:34 AM TIRE SETTER) Impressions [facility] - 10/13/2024 9:34 AM TIRE SETTER These images are for Reference purposes only and have not been reviewed by [facility] Radiology. There will be no report generated by a [facility] Radiologist. Narrative [facility] - 10/13/2024 9:34 AM TIRE SETTER EXAMINATION: Images For Reference Purposes Only Jose Lackey MD IMG MRI PROCEDURES Final R esult Performing Organization Address [facility] de Phone Number [email or web address] * Neuro MR Outside Reference (10/13/2024 9:31 AM TIRE SETTER) Impressions [facility] - 10/13/2024 9:31 AM TIRE SETTER These images are for Reference purposes only and have not been reviewed by [facility] Radiology. There will be no report generated by a [facility] Radiologist. Narrative [facility] - 10/13/2024 9:31 AM TIRE SETTER EXAMINATION: Images For Reference Purposes Only Jose Lackey MD IMG MRI PROCEDURES Final R esult Performing Organization Address [facility] Co de Phone Number [email or web address] * Neuro MR Outside Reference (10/13/2024 9:30 AM TIRE SETTER) Impressions [facility] - 10/13/2024 9:30 AM TIRE SETTER These images are for Reference purposes only and have not been reviewed by [facility] Radiology. There will be no report generated by a [facility] Radiologist. Narrative [facility] - 10/13/2024 9:30 AM TIRE SETTER EXAMINATION: Images For Reference Purposes Only Jose Lackey MD IMG MRI PROCEDURES Final R esult Performing Organization Address [facility] Co de Phone Number [email or web address] * Neuro MR Outside Reference (10/13/2024 9:28 AM TIRE SETTER) Impressions [facility] - 10/13/2024 9:28 AM TIRE SETTER These images are for Reference purposes only and have not been reviewed by [facility] Radiology. There will be no report generated by a [facility] Radiologist. Narrative [facility] - 10/13/2024 9:28 AM TIRE SETTER EXAMINATION: Images For Reference Purposes Only Jose Lackey MD IMG MRI PROCEDURES Final R esult Performing Organization Address [facility] de Phone Number [email or web address] * Neuro CT Outside Reference (10/13/2024 9:26 AM TIRE SETTER) Impressions [facility] - 10/13/2024 9:26 AM TIRE SETTER These images are for Reference purposes only and have not been reviewed by [facility] Radiology. There will be no report generated by a [facility] Radiologist. Narrative [facility] - 10/13/2024 9:26 AM TIRE SETTER EXAMINATION: Images For Reference Purposes Only Jose Lackey MD IMG CT PROCEDURES Final Re sult Performing Organization Address [facility] Co de Phone Number [email or web address] * Neuro CT Outside Reference (10/13/2024 9:24 AM TIRE SETTER) Impressions [facility] - 10/13/2024 9:24 AM TIRE SETTER These images are for Reference purposes only and have not been reviewed by [facility] Radiology. There will be no report generated by a [facility] Radiologist. Narrative [facility] - 10/13/2024 9:24 AM TIRE SETTER EXAMINATION: Images For Reference Purposes Only us Jose Lackey MD IMG CT PROCEDURES Final Re sult [facility] from Last [address] [facility] [employer] Care Teams Supervisor Cell Room Relationship Specialty Start Date End Date Collin Mckeon MD [address] [place] [address] PCP - General Family Medicine 09/29/24
--- OUTSIDE RECORDS SUMMARY | 2024-10-20 10:49 | XMS_ITS | Referral Summary ---
Author Organization [facility] Address [address] [place] [address] Care Team Providers Care Machine Assembler For Puller Over Name Role Phone Ab Riggs MARGARITA-NECK BAND MAKER Primary Care Provider [phone] Source Comments [facility],non-owned Affiliates and Associated Physician Practices is amultiple site organization consisting of ambulatory clinics and hospital sitesin [place], [place], [place] and [place]. This disclosure is being madepursuant to the Care Everywhere program and may not contain all information available regarding this patient. Last updated 18.[facility] Allergies No known active allergies Medications * [...] NOSTRIL EVERY DAY 01/14/2023 Active HYDROcodone-acetam inophen ([place]) 10-325 MG tablet Take 1 (one) tablet [...] Comments Blood Pressure 115/79 07/01/2024 9:01 AM SAMPLE PATTERNMAKER Pulse 99 07/01/2024 9:01 AM SAMPLE PATTERNMAKER Temperature 36.9 C (98.4 F) 09/16/2023 10:19 AM SAMPLE PATTERNMAKER Respiratory Rate 20 10/19/2019 10:43 AM SAMPLE PATTERNMAKER Oxygen Saturation 99% 07/01/2024 9:01 AM SAMPLE PATTERNMAKER Inhaled Oxygen Concentration - - Weight 75.1 kg (165 lb 8 oz) 07/01/2024 9:01 AM SAMPLE PATTERNMAKER Height 167.6 cm (5' 6 ) 07/01/2024 9:01 AM SAMPLE PATTERNMAKER Body Mass Index 26.71 07/01/2024 9:01 AM SAMPLE PATTERNMAKER Functional Status Functional Status Response Date of [...] on file Medical Devices Implanted Type Area Regional Business Development Manager Device Identifier Shelf Expiration Date Model / Serial / Lot Aneurysm Clip Aneurysm Clip Description:Girma cardoso clip Procedures Procedure Name Priority Date/Time Associated Diagnosis Comments HIV-1 HIV-2 ANTIBODY + HIV P24 AG PANEL Routine 12/02/2018 1:33 PM CDT Encounter to establish gestational age using ultrasound (HCC) PAP THINPREP Routine 09/01/2018 4:36 PM SAMPLE PATTERNMAKER , unspecified gestational age (HCC) HEPATITIS SCREEN ACUTE Routine 10/16/2017 2:06 PM SAMPLE PATTERNMAKER from Last 3 Months or Most Recently Relevant to Health Maintenance Results * HIV-1 HIV-2 ANTIBODY + HIV P24 AG PANEL (12/02/2018 1:33 PM CDT) HIV1/2 Ab + P24 Ag Non Reactive Non Reactive 12/02/2018 6:42 PM CDT [facility] Blood BLOOD SPECIMEN / Unknown Venipuncture / Unknown 12/02/2018 1:33 PM CDT 12/02/2018 1:59 PM CDT Narrative [facility] - 12/02/2018 6:42 PM CDT No Laboratory evidence of HIV infection. Marcelina Tapia MD LAB - CHEMISTRY AYAH ZAYAS [facility] [address] [place] [address] * PAP THINPREP (09/01/2018 4:36 PM SAMPLE PATTERNMAKER) Diagnosis Comment 09/07/2018 4:19 PM SAMPLE PATTERNMAKER [facility] ([facility]) Comment: NEGATIVE FOR INTRAEPITHELIAL LESION AND MALIGNANCY. THIS SPECIMEN WAS RESCREENED PART OF OUR AIR CONDITIONING SHEET METAL INSTALLER PROGRAM. Specimen Adequacy Comment 019 4:19 PM SAMPLE PATTERNMAKER [facility] ([facility]) Comment: Satisfactory for evaluation. Endocervical and/or squamous metaplastic cells (endocervical component) are present. Performed by Comment 09/07/2018 4:19 PM SAMPLE PATTERNMAKER [facility] ([facility]) Comment:Syeda Ramirez Cytot echnologist ([facility]) QC Reviewed by Comment 09/07/2018 4:19 PM SAMPLE PATTERNMAKER [facility] ([facility]) Comment:Roxy Stanton, Cherrie ervisory Timber Killer ([facility]) Comment . 09/07/2018 4:19 PM SAMPLE PATTERNMAKER [facility] ([facility]) Note Comment 09/07/2018 4:19 PM SAMPLE PATTERNMAKER [facility]) Comment: The Pap smear is a [...] Unknown Collection / Unknown 09/01/2018 4:36 PM SAMPLE PATTERNMAKER 09/01/2018 4:45 PM SAMPLE PATTERNMAKER Narrative [facility] ([facility]) - 09/07/2018 4:19 PM SAMPLE PATTERNMAKER Performed at: [address] [place] [id number] Pipe Supervisor: Jovanna Castro MD, Phone: [phone] Specimen Comment: Source.............Cervix Specimen Comment: LMP / Prev Treat...None Specimen Comment: Other.............. Specimen Comment: No. of containers..01 ThinPrep Vial Eileen Wong MD LAB - PATHOLO GY/CYTOLOGY ORDERABLES Performing Organization Address City/State/[facility] Co de Phone Number [facility] ([facility]) [address] [place] [address] * HEPATITIS SCREEN ACUTE (10/16/2017 2:06 PM SAMPLE PATTERNMAKER) Hepatitis A Virus Antibody IgM Non-react [facility] Hepatitis B Virus Surface Antigen Non-react [facility] Hepatitis B Core Virus Antibody IgM Non-react [facility] Hepatitis C Antibody Non-react [facility] Comment: Hepatitis C Antibody screen indicates no serologic evidence of past or current infection with Hepatitis C Virus. Patients with unexplained liver disease who are immunocompromised or suspected of having acute Hepatitis C infection may benefit from Nucleic Acid Test (ANTOINE) for Hepatitis C Viral RNA to confirm Hepatitis C status. Blood specimen (specimen) BLOOD SPECIMEN / Unknown 10/16/2017 2:06 PM SAMPLE PATTERNMAKER 10/16/2017 2:29 PM SAMPLE PATTERNMAKER Addison Campos MD LAB - CHEMISTRY AYAH Barron Organization Address City/State/ZIP Co de Phone Number [address] [phone] from Last 3 Months or Most Recently Relevant to Health Maintenance Advance Directives * Full Code (Latest Code Status on File) Date Activated Date Inactivated Comments 03/13/2019 4:02 PM 03/15/2019 1:24 PM * Full Code Date Activated Date Inactivated Comments 03/13/2019 2:21 PM 03/13/2019 4:02 PM Care Teams Machine Assembler For Puller Over Relationship Specialty Start Date End Date Ab Riggs APRN-ALBERTA [address] [place] [phone] PCP - General Nurse Practitioner Family 04/22/24
--- OUTSIDE RECORDS SUMMARY | 2024-10-20 10:49 | XMS_ITS | Clinical Summary ---
Author Organization [facility] [employer] Address [address] [place] [address] Care Team Providers Care Lab Courier Name Role Phone Ab Riggs MARGARITA-OVERLOCK SEWING MACHINE OPERATOR Primary Care Provider [phone] Source Comments [facility] [employer],non-owned Affiliates and Associated Physician Practices is amultiple site organization consisting of ambulatory clinics and hospital sitesin [place], [place], [place] and [place]. This disclosure is being madepursuant to the Care Everywhere program and may not contain all information available regarding this patient. Last updated 18.[facility] [employer] Allergies No known active allergies Medications * [...] NOSTRIL EVERY DAY 01/14/2023 Active HYDROcodone-acetam inophen ([place]) 10-325 MG tablet Take 1 (one) tablet [...] Supervision of high risk in second tri [facility] Encounter for anatomic survey H/O: stroke with [...] Comments Blood Pressure 115/79 07/01/2024 9:01 AM NEWSPAPER PEDDLER Pulse 99 07/01/2024 9:01 AM NEWSPAPER PEDDLER Temperature 36.9 C (98.4 F) 09/16/2023 10:19 AM NEWSPAPER PEDDLER Respiratory Rate 20 10/19/2019 10:43 AM NEWSPAPER PEDDLER Oxygen Saturation 99% 07/01/2024 9:01 AM NEWSPAPER PEDDLER Inhaled Oxygen Concentration - - Weight 75.1 kg (165 lb 8 oz) 07/01/2024 9:01 AM NEWSPAPER PEDDLER Height 167.6 cm (5' 6 ) 07/01/2024 9:01 AM NEWSPAPER PEDDLER Body Mass Index 26.71 07/01/2024 9:01 AM NEWSPAPER PEDDLER Plan of Treatment Health Maintenance Due Date [...] this topic Medical Devices Implanted Type Area Fulling Mill Operator Device Identifier Shelf Expiration Date Model / Serial / Lot Aneurysm Clip Aneurysm Clip Description:Girma Candy cardoso clip Procedures Procedure Name Priority Date/Time Associated Diagnosis Comments HIV-1 HIV-2 ANTIBODY + HIV P24 AG PANEL Routine 12/02/2018 1:33 PM CDT Encounter to establish gestational age using ultrasound (HCC) PAP THINPREP Routine 09/01/2018 4:36 PM NEWSPAPER PEDDLER , unspecified gestational age (HCC) HEPATITIS SCREEN ACUTE Routine 10/16/2017 2:06 PM NEWSPAPER PEDDLER from Last 3 Months or Most Recently Relevant to Health Maintenance Results * HIV-1 HIV-2 ANTIBODY + HIV P24 AG PANEL (12/02/2018 1:33 PM CDT) HIV1/2 Ab + P24 Ag Non Reactive Non Reactive 12/02/2018 6:42 PM CDT [facility] Blood BLOOD SPECIMEN / Unknown Venipuncture / Unknown 12/02/2018 1:33 PM CDT 12/02/2018 1:59 PM CDT Narrative [facility] - 12/02/2018 6:42 PM CDT No Laboratory evidence of HIV infection. Marcelina Tapia MD LAB - CHEMISTRY AYAH ZAYAS [facility] [address] [place] [address] * PAP THINPREP (09/01/2018 4:36 PM NEWSPAPER PEDDLER) Diagnosis Comment 09/07/2018 4:19 PM NEWSPAPER PEDDLER [facility] ([facility]) Comment: NEGATIVE FOR INTRAEPITHELIAL LESION AND MALIGNANCY. THIS SPECIMEN WAS RESCREENED PART OF OUR DUST COLLECTOR OPERATOR PROGRAM. Specimen Adequacy Comment 019 4:19 PM NEWSPAPER PEDDLER [facility] ([facility]) Comment: Satisfactory for evaluation. Endocervical and/or squamous metaplastic cells (endocervical component) are present. Performed by Comment 09/07/2018 4:19 PM NEWSPAPER PEDDLER [facility] ([facility]) Comment:Syeda Ramirez, Cytot echnologist ([facility]) QC Reviewed by Comment 09/07/2018 4:19 PM NEWSPAPER PEDDLER [facility] ([facility]) Comment:Roxy Stanton, Cherrie ervisory Mechanical Manufacturing Engineer ([facility]) Comment . 09/07/2018 4:19 PM NEWSPAPER PEDDLER [facility] ([facility]) Note Comment 09/07/2018 4:19 PM NEWSPAPER PEDDLER [facility] ([facility]) Comment: The Pap smear is a [...] Unknown Collection / Unknown 09/01/2018 4:36 PM NEWSPAPER PEDDLER 09/01/2018 4:45 PM NEWSPAPER PEDDLER Narrative [facility] ([facility]) - 09/07/2018 4:19 PM NEWSPAPER PEDDLER Performed at: [address] [place] [id number] Medical Intern: Jovanna Castro MD, Phone: [phone] Specimen Comment: Source.............Cervix Specimen Comment: LMP / Prev Treat...None Specimen Comment: Other.............. Specimen Comment: No. of containers..01 ThinPrep Vial Eileen Wong MD LAB - PATHOLO GY/CYTOLOGY ORDERABLES [facility] ([facility]) [address] [place] [address] * HEPATITIS SCREEN ACUTE (10/16/2017 2:06 PM NEWSPAPER PEDDLER) Hepatitis A Virus Antibody IgM Non-react irineo Non-reac tive [facility] Hepatitis B Virus Surface Antigen Non-react [facility] Hepatitis B Core Virus Antibody IgM Non-react [facility] Hepatitis C Antibody Non-react [facility] Comment: Hepatitis C Antibody screen indicates no serologic evidence of past or current infection with Hepatitis C Virus. Patients with unexplained liver disease who are immunocompromised or suspected of having acute Hepatitis C infection may benefit from Nucleic Acid Test (ANTOINE) for Hepatitis C Viral RNA to confirm Hepatitis C status. Blood specimen (specimen) BLOOD SPECIMEN / Unknown 10/16/2017 2:06 PM NEWSPAPER PEDDLER 10/16/2017 2:29 PM NEWSPAPER PEDDLER Addison Campos MD LAB - CHEMISTRY AYAH ZAYAS [address] [phone] from Last 3 Months or Most Recently Relevant to Health Maintenance Advance Directives * Full Code (Latest Code Status on File) Date Activated Date Inactivated Comments 03/13/2019 4:02 PM 03/15/2019 1:24 PM * Full Code Date Activated Date Inactivated Comments 03/13/2019 2:21 PM 03/13/2019 4:02 PM Care Teams Lab Courier Relationship Specialty Start Date End Date Ab Riggs APRN-ALBERTA [address] [place] [address] DEISY Hopkins [phone] PCP - General Nurse Practitioner Family 04/22/24
--- OUTSIDE RECORDS SUMMARY | 2024-10-20 10:49 | XMS_ITS | Data Portability ---
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 Plan of Treatment Reminders Order Date Submit Date Provider Last Modified By Organization Details Last Modified Time Details Appointments None recorded. Lab drug of abuse panel, urine 2023 024 [facility] (Lab), [address] [place], [address], 4 22:21:51 vitamin B12 + folate, serum or blood [address] (Lab), [address] [place], [address], 4 13:30:14 vitamin D, 25-hydroxy, total, serum [address] (Lab), [address] [place], [address], 4 13:30:57 drug screen, urine 2023 024 [employer] [facility], [address] [place], [address], 4 01:15:23 BMP, serum or plasma [address] (Lab), [address] [place], [address], 4 13:27:00 hepatic function panel, serum [address] (Lab), [address] [place], [address], 4 13:27:41 CBC [address] (Lab), [address] [place], [address], 4 13:28:02 lipid panel, serum [address] (Lab), [address] [place], [address], 4 13:28:31 glycohemogl obin, total, blood [address] (Lab), [address] [place], [address], 4 13:29:14 TSH, serum, reflex free T4 [address] (Lab), [address] [place], [address], 4 13:29:41 Referral pain management referral - Please call patient to schedule an appointment . Thank you. 2023 024 [email or web address] May Urena MD, 3 [facility], [address], [address], 4 08:59:58 physical therapist referral - *Please call pt to schedule* 2022 023 [email or web address] 256 [facility], [address] [place], [address], 3 09:28:17 [email or web address] support specialist referral 2022 023 [email or web address] 3 Freddy Hernandez DPAlda, [address] [facility], [address], [place], [address], 3 10:51:35 Procedures None recorded. Surgeries None recorded. Imaging None recorded. Medication Orders hydrocodone 7.5 mg-acetamin ophen 325 mg tablet 2023 024 [facility], [address] [place], [id number], 4 12:11:06 hydrocodone 10 mg-acetamin ophen 325 mg tablet [address] [facility], [address] [place], [place], [id number], 4 11:54:24 Ciprodex 0.3 %-0.1 % ear drops,suspe nsion [address] [facility], [address] [place], [place], [id number], 4 11:55:03 cyclobenzap rine 5 mg tablet 2022 023 [facility]114, [address] [place], [place], [id number], 3 18:09:22 Patient TargetsNo targets recorded. 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 for Pain of toe of left [...] amphetamines NEGATI VE NG/mL <500 Not Available [address], [place], [address], 09/26/2023 01:15:23 09/26/19 24 09/26/2023 DRUG MONIT OR, PANEL 3, W/CON F, URINE benzodiazepi gloria NEGATI VE NG/mL <100 Not Available [address], [place], [address], 09/26/2023 01:15:23 09/26/19 24 09/26/2023 DRUG MONIT OR, PANEL 3, W/CON F, URINE cocaine metabolite NEGATI VE NG/mL <150 Not Available [address], [place], [address], 09/26/2023 01:15:23 09/26/19 24 09/26/2023 DRUG MONIT OR, PANEL 3, W/CON F, URINE marijuana metabolite NEGATI VE NG/mL <20 Not Available [address], [place], [address], 09/26/2023 01:15:23 09/26/19 24 09/26/2023 DRUG MONIT OR, PANEL 3, W/CON F, URINE opiates INTERF ERENCE NG/mL <100 abnormal See Note A See Note A Not Available [address], [place], [address], 09/26/2023 01:15:23 09/26/19 24 09/26/2023 DRUG MONIT OR, PANEL 3, W/CON F, URINE oxycodone NEGATI VE NG/mL <100 Not Available [address] [address] [place], [address], 09/26/2023 01:15:23 09/26/19 24 09/26/2023 DRUG MONIT OR, PANEL 3, W/CON F, URINE creatinine 154.3 mg/dL > or = 20.0 Not Available [facility] [address] [address], [place], [address], 09/26/2023 01:15:23 09/26/19 24 09/26/2023 DRUG MONIT OR, PANEL 3, W/CON F, URINE pH 5.9 4.5-9. 0 Not Available [facility] [address] [address], [place], [address], 09/26/2023 01:15:23 09/26/19 24 09/26/2023 DRUG MONIT OR, PANEL 3, W/CON F, URINE oxidant NEGATI VE mcg/m L <200 Not Available [facility] [address] [address], [place], [address], 09/26/2023 01:15:23 09/10/19 24 09/10/2023 MRI, brain + brain stem, w/o contr ast No observ ation record ed. [email or web address] [facility] [address], [place], [address], 09/11/2023 15:13:09 03/30/20 24 03/29/2024 XR, chest , 2 view No observ ation record ed. [email or web address] [facility] [address], [place], [address], 04/14/2024 08:58:41 Result Notes None recorded. Problems Name Problem SNOMED Code Status Onset Date Resolution Date Notes Provider Name and Address Organization Details Recorded Time Neuropath y 815873900 Active 2022 Not Available [employer] 3 04:18:08 Mixed anxiety and depressiv e disorder 042316024 Active 2022 Not Available [facility] 3 04:18:07 Neck pain 40796563 Active 2022 Not Available [facility] 3 04:18:08 Pain of toe of left foot 94702324493 9108 Active 2022 Not Available [facility] 3 04:18:07 Pain in upper limb 935562430 Active 2022 Not Available [facility] 3 04:18:07 Seasonal allergy 795972261 Active 2022 Not Available [facility] 3 04:18:08 Depressiv e disorder 84567526 Active 2022 Not Available [facility] 3 04:18:07 Disorder of eye 152432185 Active 2022 Not Available [facility] 3 04:18:07 Headache 81106646 Active 2022 Not Available [facility] 3 04:18:07 Injury of head 97069331 Active 2022 Not Available [facility] 3 04:18:08 Migraine 14984668 Active 2022 Not Available [facility] 3 04:18:08 Cerebrova scular accident 675479093 Active 2022 Not Available [facility] 3 04:18:07 Left foot drop 58846085790 9105 Active 2022 Not Available [facility] 3 04:18:07 Spasm 21801202 Active 2022 Not Available [facility] 3 04:18:08 Upper respirato ry infection 84761678 Active 2022 VON Dangelo [address], [place], [address] , [employer] 3 08:49:10 Pain of ear 457837964 Active 2023 PHANI Jimenez [address], [place], [address] , [employer] 4 10:59:46 Cough 80850932 Active 2023 ASTRID Jimenez-Anju [address], [place], [address] , [employer] 4 17:00:05 Amenorrhe a 52083167 Active Not Available [facility] 3 04:18:07 Vaginal discharge 898744280 Completed Not Available [facility] 3 03:26:24 Lesion of vulva 968518319 Completed Not Available [facility] 3 03:26:24 Pain in pelvis 82790408 Completed Not Available [facility] 3 03:26:25 Menorrhag ia 433355225 Completed Not Available [facility] 3 03:26:25 Vulvovagi nitis 18533924 Completed Not Available [facility] 3 03:26:25 Vulvitis 23683667 Active Not Available [facility] 3 04:18:08 Dyspareun ia 19811075 Active Not Available [facility] 3 04:18:08 Urgent desire to urinate 50046943 Completed Not Available [facility] 3 03:26:25 [id number] Completed 201701/12/2019 Not Available [facility] 3 03:26:25 Irregular periods 75775802 Active Not Available [facility] 3 04:18:08 Notes:BACK/NECK PROBLEM Some problems listed in Document: #[id number] could not be added to this patient's chart. Please review this document and add these problems to the patient's chart manually as needed. Problem Notes None recorded. Procedures Surgical History Date Name Laterality Status Provider Name and Address Organization Details Recorded Time 09/24/19 24 Medicare Wellness CPT Code, subsequent completed Jena Almeida RN [facility] [employer] 09/24/2023 10:36:54 10/14/19 20 Date of Last Pap Smear completed Not Available [facility] 10/23/2022 03:18:50 08/25/19 20 Brain Surgery completed Not Available [facility] 10/23/2022 03:18:52 10/28/19 18 Brain Surgery completed Not Available [facility] 10/23/2022 03:18:52 08/25/19 12 cholecystectomy completed Not Available [facility] 10/23/2022 03:18:52 radical lymph node dissection of neck region completed Not Available [facility] 10/23/2022 03:18:52 Imaging Results Imaging Date Name Status LastModified by Organiz ation Details LastModified Time 09/10/2023 MRI, brain + brain stem, w/o contrast completed [email or web address] [facility] [address], [place], [address], 09/11/2023 15:13:09 03/29/2024 XR, chest, 2 view completed [email or web address] [facility] [address], [place], [address], 04/14/2024 08:58:41 Procedure Notes None recorded. 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 a 150 mg/mL intramuscul ar syringe Inject [...] Updated DateTime 3 167.64 cm 25.8 kg/m2 48209.7 8 g 97.6 [degF] 98 % 98 % 84 /min 124 mm[Hg] 68 mm[Hg] Angelique Alcaraz CMA [employer] [facility] [employer] 3 10:05:03 Date Recorded Body height Body mass index (BMI) Body weight Provider Name and Address Organization Details Last Updated DateTime 05/12/2023 167.64 cm 25.3 kg/m2 55072 g Roxy Dudley [employer] [facility] [employer] 05/12/2023 12:02:55 Date Recorded Body height Body mass index (BMI) Body weight Body temperature Heart rate Oxygen saturation Oxygen saturation in Arterial blood by Pulse oximetry Systolic blood pressure Diastolic blood pressure Provider Name and Address Organization Details Last Updated DateTime 4 167.64 cm 27.1 kg/m2 13429.5 2 g 98.6 [degF] 75 /min 100 % 100 % 118 mm[Hg] 78 mm[Hg] Jena Almeida RN [facility] [employer] [facility] 4 10:40:28 Date Recorded Body height Body mass index (BMI) Body weight Body temperature Heart rate Oxygen saturation Oxygen saturation in Arterial blood by Pulse oximetry Systolic blood pressure Diastolic blood pressure Provider Name and Address Organization Details Last Updated DateTime 4 167.64 cm 26.6 kg/m2 78262.7 4 g 98.7 [degF] 96 /min 98 % 98 % 116 mm[Hg] 80 mm[Hg] Jena Almeida RN [facility] 4 12:00:07 Date Recorded Body height Body mass index (BMI) Body weight Body temperature Heart rate Oxygen saturation Oxygen saturation in Arterial blood by Pulse oximetry Systolic blood pressure Diastolic blood pressure Provider Name and Address Organization Details Last Updated DateTime 4 167.64 cm 27.1 kg/m2 85642.5 2 g 99.1 [degF] 92 /min 100 % 100 % 132 mm[Hg] 88 mm[Hg] Jena Almeida RN [facility] [employer] 4 11:56:16 Social History Question Answer Notes LastModified by Organizat ion Details LastModified Time Tobacco Smoking Status Never Smoker Betty mahan [facility] 09/24/2023 10:34:27 Do You Have An Advance Directive? No Declined [id number] Information not available 10/23/2022 What Is Your Level Of Alcohol Consumption? None [id number] Information not available 10/23/2022 What Is Your Level Of Caffeine Consumption? Occasional [id number] Information not available 10/23/2022 In The 14 Days Before Symptom Onset, Have You Had Close Contact With A Laboratory-confir med COVID-19 While That Case Was Ill? No [email or web address] Information not available 09/24/2023 In The 14 Days Before Symptom Onset, Have You Had Close Contact With A Person Who Is Under Investigation For COVID-19 While That Person Was Ill? No Information not available 09/24/2023 What Type Of Diet Are You Following? 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 Yes Information not available 09/24/2023 What Was The Date Of Your Most Recent Tobacco Screening? 05/16/2022 Information not available 09/24/2023 Do You Use Your Seat Belt Or Car Seat Routinely? Yes [email or web address] Information not available 09/24/2023 Do You Use Any Illicit Or Recreational Drugs? No [email or web address] Information not available 09/24/2023 Do You Use Sunscreen Routinely? Yes [email or web address] Information not available 09/24/2023 Has Tobacco Cessation Counseling Been Provided? No Information not available 09/24/2023 Do You Have Any Dietary Restrictions? No [email or web address] Information not available 09/24/2023 Do You Or Have You Ever Used Any Other Forms Of Tobacco Or Nicotine? No [email or web address] Information not available 09/24/2023 Sex: Unknown Functional Status Question Answer Note LastModified by [employer] Details LastModified Time What is your exercise level? Occasional [id number] Information not available 10/23/2022 Mental Status None recorded. Family History Relationship Description Onset Age of this Age Resolved Age Notes LastModified by Organization Details LastModified Time Mother No current problems or disability [id number] Not available 10/23/2022 03:18:58 Paternal Grandmother Family history of stroke [id number].036 [id number] Not available 10/23/2022 03:18:58 Father Seizure disorder [id number].467 [id number] Not available 10/23/2022 03:18:58 Maternal Grandmother Seizure disorder [id number].421 [id number] Not available 10/23/2022 03:18:58 Paternal Grandmother Cerebrovascu [...] N SURGERY N MUMPS N SHINGLES N BOWEL PROBLEMS N FEMALE PROBLEMS / INFECTIONS N DEPRESSION (INCLUDING POST ) Y STROKE/TIA Y THYROID DISEASE N ULCERS N BENIGN PROSTATIC HYPERPLASIA N MEASLES N CERVICALGIA N HYPOTENSION N TB SKIN TEST N MYOCARDIAL INFARCTION N PARAPELGIA N OBESITY [...] GLAUCOMA N FOOT PROBLEM N DIVERTICULITIS N CHICKENPOX N SLEEP APNEA N ALLERGIES/HAYFEVER Y INFECTIOUS DISEASE N HEART ARRHYTHMIA N PROSTATE N INSOMNIA N HIGH CHOLESTEROL / HYPERLIPIDEMIA N HYPERTHYROIDISM N EYE PROBLEMS Y EATING DISORDER N EDEMA N CHRONIC PAIN SYNDROME N CONSTIPATION N CAROTID BLOCKAGE N BACK / NECK PROBLEMS Y HAVE YOU BEEN HOSPITALIZED OR SEEN IN [facility] IN THE PAST YEAR ? N ATHEROSCLEROSIS [...] DISORDER N ALZHEIMER'S DISEASE N PAIN N HERPES N DEMENTIA N HEADACHES/MIGRAINES Y SEIZURES/EPILEPSY N VASCULAR DISEASE N PACEMAKER N DIZZINESS N HEART DISEASE/HEART PROBLEMS N KIDNEY DISEASE N DEVELOPMENTAL OR BEHAVIORAL DISORDERS N MULTIPLE SCLEROSIS N SCARLET FEVER N MENTAL DISORDER/ILLNESS N CARDIAC ARRHYTHMIA N CANCER: SPECIFY N PNEUMONIA N ATRIAL FIBRILLATION N Gall Stones N PULMONARY EMBOLISM N AUTOIMMUNE DISEASE N Gynecological History Statement/Question Response How many live births 1 Abnormal Pap Y Date of LMP Dislike of Light during Menstrual Headac he N Date of Last Pap Date of Last Pap Smear 10/14/2019 Current Control Method Depo-Senior Applications 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 a Age at Menarche 11 Breast Problems no Obstetrics History GPAL:G 1 P 1 0 0 1 Type Value Full Term 1 Living 1 Total 1 Past Encounters Encounter ID Performer Location Encounter Start Date Encounter Closed Date Diagnosis/Indication Diagnosis SNOMED-CT Code Diagnosis ICD10 Code Diagnosis Note [id number] _ATHENA_M IGRATION_ DEFAULT_1 _1 , 11/29/2020 00:00:00 11/29/2020 15:18:22 [id number] _ATHENA_M IGRATION_ DEFAULT_1 _1 , 02/21/2021 00:00:00 02/21/2021 16:50:03 [id number] _ATHENA_M IGRATION_ DEFAULT_1 _1 , 05/16/2021 00:00:00 05/16/2021 15:46:58 [id number] _ATHENA_M IGRATION_ DEFAULT_1 _1 , 06/07/2021 00:00:00 06/07/2021 14:30:33 [id number] _ATHENA_M IGRATION_ DEFAULT_1 _1 , 08/10/2021 00:00:00 08/10/2021 10:20:02 [id number] [facility] [place] [address] [place] [address] 09/19/2021 00:00:00 09/19/2021 11:38:12 [id number] [facility] [place] [address] [place] [address] 12/17/2021 00:00:00 12/17/2021 11:38:19 [id number] [facility] [place] [address] [place] [address] 03/18/2022 00:00:00 03/18/2022 11:24:40 [id number] [facility] [place] [address] [place] [address] 05/17/2022 00:00:00 05/17/2022 12:32:59 [id number] [facility] [place] [address] [place] [address] 08/27/2022 00:00:00 08/27/2022 17:51:56 [id number] VON Dangelo [facility] [place] [address] [place] [address] 12/02/2022 11:06:02 12/02/2022 11:39:01 Mixed anxiety and depressive disorder 466554602 F41.8 Doing well on sertraline but has noticed some drowsiness . She would like to continue it as it has helped mood. Will continue to monitor. Neuropathy 566592136 G62 .9 UDS updated 08/27/22. No refill needed today. History of cerebrovascular accident 737259010 Z86.73 Will get her setup with new [...] f/u every 2 years for repeat MRIs. [id number] PHANI Jimenez [facility] [address] [facility] [address] [place] [address] 03/25/2023 10:00:51 03/25/2023 10:27:53 Neck pain 45719246 M54.2 chronic r/t muscle spasm. Has tried muscle relaxers in the past, but now only treats with pain meds. Will trial cyclobenza lula Pain of to e of left foot 1931754850 15016 M79.675 Pt reports curling of toes to left foot when she walks making it painful. [id number] Freddy Hernandez DPM [facility] [address] [place] [address] 05/12/2023 11:57:59 05/12/2023 12:23:32 Left foot drop 8340741590 38750 M21.372 recommend continuing custom AFOfollow- up with Neurology Spasm 37302403 R25.2 currently on cyclobenza prineconti nue with neurologyr ecommend crest pad for toe spasms to prevent wounds and allow offloading to the distal tip of the toefollow- up as needed [id number] PHANI Jimenez [facility] [address] [address] 09/24/2023 10:33:19 09/24/2023 11:35:20 Adult health examination 692311980 Z00.00 -Encourage 30 mins of daily exercise-t marita to stay active-Yael frias woman exams-pap in -labs obtained Screening for disorder 585824460 Z13.9 Long-term drug therapy 147656791 Z79.899 Pain of ear 676621084 H9 2.09 [id number] PHANI Jimenez [facility] [address] [address] 02/17/2024 11:37:00 02/17/2024 12:23:06 Neuropathy 089527207 G62.9 Drug of abuse screen 897 17055 Z02.83 Pt denies any lending, selling, or borrowing of medication s. Denies any cp, sob, palpitatio ns, or unusual weight loss.Revie wed controlled substance agreement requiremen ts. Refill given.[place] PDMP checked today. [id number] Ab PHANI Riggs [facility] [address] [address] 05/19/2024 11:48:36 05/19/2024 12:52:20 Neuropathy 391432101 G62.9 neurologis t is trying to send her to pain management will be seeing botox specialist next monthrefil l hydrocodon e Drug of abuse screen 897 70015 Z02.83 Pt denies any lending, selling, or [...] [place] Member ID Guarantor Name 03/25/2023 1 [facility] (MEDICARE REPLACEMENT/AD VANTAGE - HMO) [id number] Shahnaz L Mordis [id number] Shahnaz L Mordis 03/25/2023 2 [place] WHEN MEDICARE OR MEDICARE REPLACEMENT PRIMARY) Shahnaz Mordis [id number] Shahnaz L Mordis 05/12/2023 1 [facility] (MEDICARE REPLACEMENT/AD VANTAGE - HMO) [id number] Shahnaz L Mordis [id number] Shahnaz L Mordis 05/12/2023 2 [place] OR MEDICARE REPLACEMENT PRIMARY) Shahnaz Mordis [id number] Shahnaz L Mordis 09/24/2023 1 [facility] (MEDICARE REPLACEMENT/AD VANTAGE - HMO) [id number] Shahnaz L Mordis [id number] Shahnaz L Mordis 09/24/2023 2 [place] OR [place]ICARE REPLACEMENT PRIMARY) Shahnaz Mordis [id number] Shahnaz L Mordis 02/17/2024 1 [facility] (MEDICARE REPLACEMENT/AD VANTAGE - HMO) [id number] Shahnaz L Mordis [id number] Shahnaz L Mordis 02/17/2024 2 [place] OR MEDICARE REPLACEMENT PRIMARY) Shahnaz Mordis [id number] Shahnaz L Mordis 05/19/2024 1 [facility] (MEDICARE REPLACEMENT/AD VANTAGE - HMO) [id number] Shahnaz L Mordis [id number] Shahnaz L Mordis 05/19/2024 2 [place] WHEN [place]ARE OR MEDICARE REPLACEMENT PRIMARY) Shahnaz Mordis [id number] Shahnaz L Mordis Notes Date Note Type [...] therapy in 5 years. Ab Riggs, ASTRID-C [address] [place] [address], [facility] [address], [place], [address], [facility] [employer] [facility] 03/25/2023 18:09:30 05/12/2023 text/html . [...] of her toes. Freddy Hernandez DPM [address], [address], [facility] [employer] [facility] 05/12/2023 12:20:31 09/24/2023 text/html Pt is here for annual visit PHANI Jimenez [address] [address], [place], [address], [employer] [facility] [employer] [facility] 09/24/2023 12:41:06 02/17/2024 text/html pt is here for f/u PHANI Easton [address], [address], [employer] [facility] [employer] [facility] 02/17/2024 12:49:52 05/19/2024 text/html pt is here for f/u PHANI Easton [address], [address], [employer] [facility] [employer] 05/19/2024 12:27:42 OBGyn Episode No OBEpisode recorded.
--- OUTSIDE RECORDS SUMMARY | 2024-10-20 10:49 | XMS_ITS | Clinical Summary ---
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 Encounters Date Type Department Care Team Description 10/13/2024 10:04 AM SLACK COOPER - 10/13/2024 11:59 PM [facility] COOPER Hospital Encounter [facility] [address] [place] [address]167 Discharge Disposition: Discharge to home or self care 10/13/2024 9:51 AM SLACK COOPER - 10/13/2024 11:59 PM [facility] CO[facility] Hospital Encounter [facility] [address] [place] [address] Discharge Disposition: Discharge to home or self care 10/13/2024 9:46 AM SLACK COOPER - 10/13/2024 11:59 PM [facility] Hospital Encounter [facility]) [address] [place] [address] Discharge Disposition: Discharge to home or self care 10/13/2024 9:43 AM SLACK COOPER - 10/13/2024 11:59 PM [facility] Hospital Encounter [facility] [address] [place] [address] 68651 Discharge Disposition: Discharge to home or self care 10/13/2024 9:34 AM SLACK COOPER - 10/13/2024 11:59 PM [facility] Hospital Encounter [facility] [address] [place] [address] 20705 Discharge Disposition: Discharge to home or self care 10/13/2024 9:31 AM SLACK COOPER - 10/13/2024 11:59 PM [facility] Hospital Encounter [facility] [address] [place] [address] Discharge Disposition: Discharge to home or self care 10/13/2024 9:30 AM SLACK COOPER - 10/13/2024 11:59 PM [facility] Hospital Encounter [facility] [address] [place] [address] Discharge Disposition: Discharge to home or self care 10/13/2024 9:28 AM SLACK COOPER - 10/13/2024 11:59 PM [facility] Hospital Encounter [facility] [address] [place] [address]88 Discharge Disposition: Discharge to home or self care 10/13/2024 9:26 AM SLACK COOPER - 10/13/2024 11:59 PM [facility] Hospital Encounter [facility] [address] [place] [address] 65992 Discharge Disposition: Discharge to home or self care 10/13/2024 9:24 AM SLACK COOPER - 10/13/2024 11:59 PM [facility] Hospital Encounter [facility] [address] [place] [address]900 Discharge Disposition: Discharge to home or self care from Last 3 Months Medical History Medical History Date Comments Stroke (HCC) Social History Tobacco Use Types Packs/Day Years Used Date Smoking Tobacco: Never Tobacco Cessation:Counseling Given: Not Answered Comments No Sex and Gender Information Value Date Recorded Sex Assigned at Not on file Legal Sex Female 10:11 PM [facility] COOPER Gender Identity Not on file Sexual Orientation Not on file Obstetrics History Last Filed Vital Signs Vital Sign Reading Time Taken Comments Blood Pressure 143/60 08/11/2022 9:07 PM SLACK COOPER Pulse 100 08/11/2022 9:07 PM [facility]ACK COOPER Temperature 36.6 C (97.9 F) 08/11/2022 9:07 PM SLACK COOPER Respiratory Rate 16 08/11/2022 9:07 PM SLACK COOPER Oxygen Saturation 99% 08/11/2022 9:07 PM SLACK COOPER Inhaled Oxygen Concentration - - Weight 71.2 kg (157 lb) 08/11/2022 9:07 PM SLACK COOPER Height 167.6 cm (5' 6 ) 08/11/2022 9:07 PM SLACK COOPER Body Mass Index 25.34 08/11/2022 9:07 PM SLACK COOPER Plan of Treatment Health Maintenance Due Date [...] on patient's age to complete this topic Procedures Procedure Name Priority Date/Time Associated Diagnosis Comments NEURO MR OUTSIDE REFERENCE Routine 10/13/2024 10:04 AM [facility] COOPER NEURO MR OUTSIDE REFERENCE Routine 10/13/2024 9:51 AM [facility]ACK COOPER Diagnosis unknown NEURO CT OUTSIDE REFERENCE Routine 10/13/2024 9:46 AM [facility]ACK COOPER Diagnosis unknown NEURO MR OUTSIDE REFERENCE Routine 10/13/2024 9:43 AM [facility]ACK COOPER NEURO MR OUTSIDE REFERENCE Routine 10/13/2024 9:34 AM [facility] COOPER NEURO MR OUTSIDE REFERENCE Routine 10/13/2024 9:31 AM [facility]ACK COOPER Diagnosis unknown NEURO MR OUTSIDE REFERENCE Routine 10/13/2024 9:30 AM [facility] COOPER NEURO MR OUTSIDE REFERENCE Routine 10/13/2024 9:28 [address] [facility] [address] OUTSIDE REFERENCE Routine 10/13/2024 9:26 AM [facility] COOPER NEURO CT OUTSIDE REFERENCE Routine 10/13/2024 9:24 AM SLACK COOPER from Last 3 Months Results * Neuro MR Outside Reference (10/13/2024 10:04 AM SLACK COOPER) Impressions [facility] - 10/13/2024 10:04 AM SLACK COOPER These images are for Reference purposes only and have not been reviewed by [facility]. There will be no report generated by a [facility] Radiologist. Narrative [facility] - 10/13/2024 10:04 AM SLACK COOPER EXAMINATION: Images For Reference Purposes Only Jose Lackey MD [facility] MRI PROCEDURES [facility] Performing Organization Address [facility] Co de Phone Number [facility] * Neuro MR Outside Reference (10/13/2024 9:51 AM SLACK COOPER) Impressions [facility] - 10/13/2024 9:51 AM SLACK COOPER These images are for Reference purposes only and have not been reviewed by [facility]. There will be no report generated by a [facility] Radiologist. Narrative [facility] - 10/13/2024 9:51 AM SLACK COOPER EXAMINATION: Images For Reference Purposes Only Jose Lackey MD [facility] MRI PROCEDURES Final R esult [facility] * Neuro CT Outside Reference (10/13/2024 9:46 AM SLACK COOPER) Impressions [facility] - 10/13/2024 9:46 AM SLACK COOPER These images are for Reference purposes only and have not been reviewed by [facility]. There will be no report generated by a [facility] Radiologist. Narrative [facility] - 10/13/2024 9:46 AM SLACK COOPER EXAMINATION: Images For Reference Purposes Only Jose Lackey MD IMG CT PROCEDURES Final Re sult Performing Organization Address [facility] Co de Phone Number [facility] * Neuro MR Outside Reference (10/13/2024 9:43 AM SLACK COOPER) Impressions [facility] - 10/13/2024 9:43 AM SLACK COOPER These images are for Reference purposes only and have not been reviewed by [facility]. There will be no report generated by a [facility] Radiologist. Narrative [facility] - 10/13/2024 9:43 AM SLACK COOPER EXAMINATION: Images For Reference Purposes Only Jose Lackey MD IMG MRI PROCEDURES Final R esult Performing Organization Address [facility] Co de Phone Number [facility] * Neuro MR Outside Reference (10/13/2024 9:34 AM SLACK COOPER) Impressions [facility] - 10/13/2024 9:34 AM SLACK COOPER These images are for Reference purposes only and have not been reviewed by [facility]. There will be no report generated by a [facility] Radiologist. Narrative [facility] - 10/13/2024 9:34 AM SLACK COOPER EXAMINATION: Images For Reference Purposes Only Jose Lackey MD IMG MRI PROCEDURES Final R esult Performing Organization Address [facility] Co de Phone Number [facility] * Neuro MR Outside Reference (10/13/2024 9:31 AM SLACK COOPER) Impressions [facility] - 10/13/2024 9:31 AM SLACK COOPER These images are for Reference purposes only and have not been reviewed by [facility]. There will be no report generated by a [facility] Radiologist. Narrative [facility] - 10/13/2024 9:31 AM SLACK COOPER EXAMINATION: Images For Reference Purposes Only Jose Lackey MD IMG MRI PROCEDURES Final R esult Performing Organization Address [facility] Co de Phone Number [facility] * Neuro MR Outside Reference (10/13/2024 9:30 AM SLACK COOPER) Impressions [facility] - 10/13/2024 9:30 AM SLACK COOPER These images are for Reference purposes only and have not been reviewed by [facility]. There will be no report generated by a [facility] Radiologist. Narrative [facility] - 10/13/2024 9:30 AM SLACK COOPER EXAMINATION: Images For Reference Purposes Only Jose Lackey MD IMG MRI PROCEDURES Final R esult Performing Organization Address [facility] de Phone Number [facility] * Neuro MR Outside Reference (10/13/2024 9:28 AM SLACK COOPER) Impressions [facility] - 10/13/2024 9:28 AM SLACK COOPER These images are for Reference purposes only and have not been reviewed by [facility]. There will be no report generated by a [facility] Radiologist. Narrative [facility] - 10/13/2024 9:28 AM SLACK COOPER EXAMINATION: Images For Reference Purposes Only Jose Lackey MD IMG MRI PROCEDURES Final R esult Performing Organization Address [facility] Co de Phone Number [facility] * Neuro CT Outside Reference (10/13/2024 9:26 AM SLACK COOPER) Impressions [facility] - 10/13/2024 9:26 AM SLACK COOPER These images are for Reference purposes only and have not been reviewed by [facility]. There will be no report generated by a [facility] Radiologist. Narrative [facility] - 10/13/2024 9:26 AM SLACK COOPER EXAMINATION: Images For Reference Purposes Only Jose Lackey MD IMG CT PROCEDURES Final Re sult Performing Organization Address [facility] de Phone Number [facility] * Neuro CT Outside Reference (10/13/2024 9:24 AM SLACK COOPER) Impressions [facility] - 10/13/2024 9:24 AM SLACK COOPER These images are for Reference purposes only and have not been reviewed by [facility]. There will be no report generated by a [facility] Radiologist. Narrative [facility] - 10/13/2024 9:24 AM SLACK COOPER EXAMINATION: Images For Reference Purposes Only Jose Lackey MD IMG CT PROCEDURES Final Re sult Performing Organization Address [facility] de Phone Number [facility] from Last 3 Months Insurance IDPA [facility] MDCR HMO REF [facility] MDCR HMO REF [employer]PA [employer] IDPA Care Teams Stockroom Worker Relationship Specialty Start Date End Date Collin Mckeon MD [address] [place] [address] PCP - General Family Medicine 09/29/24
--- OUTSIDE RECORDS SUMMARY | 2024-10-20 10:49 | XMS_ITS | Data Portability ---
Author Organization [facility] Address [address] [place] [address] Care Team Providers Care Natural Gas Shothole Driller Name Role Phone LEIGHTON CURTIS Community Services Coordinator JEREMY RAZO Primary Care Provider Assessment No assessment recorded. Plan of Treatment Reminders Order Date Submit Date Provider Last Modified By Organization Details Last Modified Time Details Appointments ANY 15 2024 09:15A M Collin Mckeon MD Not available Not available Not available Lab None recorded . Referral pain manageme nt referral 2024 025 PHILIPPMadeline Weems MD, [address] [facility] [address], [place], [address], 09/22/2024 09:50:32 neurolog ist [facility], [address], [place], [address], 09/22/2024 09:55:17 neurolog ist referral 2019 020 PHILIPP Not available 04/12/2020 14:37:00 pain manageme nt referral - Please call patient and schedule appt. Please send consult note after initial visit. No imaging on file [address] [facility], [address], [place], [address], 07/28/2020 12:05:16 Procedures None recorded . Surgeries None recorded . Imaging None recorded . Medication Orders hydrocod one 7.5 mg-aceta minophen 325 mg tablet 2024 025 PHILIPP [facility], [address] [place], [place], [id number], 09/21/2024 19:17:01 Qulipta 60 mg tablet [address] [facility], [address] [place], [place], [id number], 09/21/2024 12:56:12 cycloben zaprine 5 mg tablet [address] [facility]74, [address] [place], [place], [id number], 09/21/2024 12:56:12 venlafax ine 50 mg tablet 2019 020 [facility]28, [address] [place], [place], [id number], 09/21/2024 12:26:01 duloxeti ne 20 mg capsule, delayed release 2019 020 [facility], [address] [place], [place], [id number], 11/17/2019 15:36:10 Patient TargetsNo targets recorded. Patient Instructions Encounter Date Encounter Id Patient Instructions Last Modified By Organization Details Last Modified Time 10/20/2019 [id number] learning about healthy weight Not available 10/21/2019 08:48:30 starting a weigh t loss plan: care instructions Not available 10/21/2019 08:48:30 09/21/2024 [id number] A healthy lifestyle: care instructions [email or web address] Not available 09/21/2024 12:56:12 Reason for Referral Pain Management Referral for Neuralgia Please call patient and schedule appt. Please send consult note after initial visit. No imaging on file Referring Physician: Jeremy Razo, Manager [employer], Encounter Date: 10/20/2019 Neurologist Referral for Hem iparesis Referring Physician: Jeremy Razo, [employer], Encounter Date: 12/27/2019 Neurologist Referral for His [...] Organization Details Recorded Time Cerebrovasc ular accident 948288255 Completed 201710/20/2019 Lloyd Estrada [place] null, [place] [facility] 0 14:44:28 Cerebrovasc ular accident 801471511 Active 2019 Lloyd Estrada [place] [facility] 0 14:44:28 Hemiparesis Active 2019 Lloyd Estrada [place], [place] [facility] 0 14:45:22 Overweight 359589804 Active 2024 Collin Mckeon MD Attn: Gerald gonzalez,[address] [facility], [place], [address], [place] [facility] 5 12:32:11 Depressive disorder 30121342 Active 2024 Collin Mckeon MD Attn: Gerald gonzalez,[address] [facility], [place], [address], [place] [facility] 5 12:32:11 Migraine 36141939 Active 2024 Collin Mckeon MD Attn: Gerald gonzalez,[address] [facility], [place], [address], [place] [facility] 5 12:32:12 Chronic pain 46946196 Active 2024 Collin Mckeon MD Attn: Gerald gonzalez,[address] [facility], [place], [address], [place] [facility] 5 12:32:13 Spasm of back muscles 810225839 Active 2024 Collin Mckeon MD Attn: Geradl gonzalez,[address] [facility], [place], [address], [place] [facility] 5 12:32:14 History of cerebrovasc ular accident 661966523 Active 2024 Collin Mckeon MD Attn: Gerald gonzalez,[address] [facility], [place], [address], [place] [facility] 5 12:32:16 Seasonal allergic rhinitis 560960459 Active 2024 Collin Mckeon MD Attn: Gerald gonzalez,[address] [facility], [place], [address], [place] [facility] 5 12:34:01 Problem Notes None recorded. Procedures Surgical History Date Name Laterality Status Provider Name and Address Organization Details Recorded Time 10/14/19 20 Date of Last Pap Smear completed Lloyd Estrada MA [facility] 10/20/2019 14:40:02 10/24/19 18 procedure on brain completed Lloyd Estrada MA [facility] 10/20/2019 14:43:42 08/25/19 13 cholecystectomy completed Lloyd Estrada MA [facility] 10/20/2019 14:45:39 05/25/20 00 procedure on brain completed Lloyd Estrada MA [facility] 10/20/2019 14:43:36 procedure on lymph node completed Lloyd Estrada MA [facility] 10/20/2019 14:45:45 Imaging Results Imaging Date Name [...] Available Not Available Not Available BD Ultra-Fine Enuice Pen Needle 32 gauge x 32 10/20 [...] 0 98.1 [degF] 167.64 cm 26 kg/m2 29205.4 7 g 114 mm[Hg] 70 mm[Hg] Lloyd Estrada MA [facility] 0 14:47:19 Date Recorded Body height Provider Name an d Address Organization Details Last Updated DateTime 11/17/2019 167.64 cm Nelly Viveros MA [place] [facility] 2019 15:03:54 Date Recorded Body height Provider Name an d Address Organization Details Last Updated DateTime 12/27/2019 167.64 cm Tawana Hendrix MA [facility] 12/27/2019 15:05:31 Date Recorded Body height Body mass index (BMI) Body weight Oxygen saturation Oxygen saturation in Arterial blood by Pulse oximetry Heart rate Systolic blood pressure Diastolic blood pressure Provider Name and Address Organization Details Last Updated DateTime 5 167.64 cm 26.8 kg/m2 57297.0 8 g 99 % 99 % 98 /min 116 mm[Hg] 72 mm[Hg] Eneida Chowdhury MA [facility] 5 11:59:40 Social History Question Answer Notes LastModified by Organizat ion Details LastModified Time Tobacco Smoking Status Never Smoker Lloyd Estrada MA [facility], [facility] 10/20/2019 14:41:21 Do You Have An Advance [...] Response Coronary Artery Disease N Other N High Blood Pressure N Atrial Fibrillation N Kidney or Bladder Problems N Thyroid Problems N GI Problems N Depression Y COPD N Blood Clots N Skin Problems N Anemia N Heart Attack (IN) N Anxiety Disorder Y Diabetes N Muscle, Joint, or Bone Problems N Seizures/Epilepsy N Acid Reflux (GERD) Y Cancer N Stroke Y Asthma N Allergies Y High Cholesterol N Hepatitis N Liver Disease N Headaches Y Heart Failure N Osteoporosis N Gynecological History Statement/Question Response Date of Last Pap Smear 10/14/2019 Current Control Method 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 Has has surgery in 1999 and 2017. The latter surgery had complicati on of stroke during surgery leaving her with left hemiparesi s. - taking depo as control- has finished pt and she excercise at home- uses fox- no longer needs anticoagul ation Hemiparesis G81 .90 patient has nerve pain due to stroke in 2018. She is would like pain management . - cymbalta bid- discussed side effects and black box warning- f/u in one month Neuralgia 53145350 M79.2 patient has nerve pain and would like to have pain management . Will cymbalta. SHe does not want to be on gabapentin . - cymbalta 20mg bid Adult heal th examination 261602077 Z00.01 patient presents to establish. Was seeing Dr Jaramillo. [facility]. on Depo, UTD on pap. BMI 26. - discussed quitting soda- discussed diet and portion sizes [id number] [facility] [address] [place] [address] 11/17/2019 09:34:30 11/18/2019 14:17:21 Hemiparesis G81.90 [...] f/u one month - call with questions [id number] [facility] [address] [place] [address] 12/27/2019 13:47:56 12/28/2019 11:25:06 Hemiparesis 20813821 G81.90 patient does not feel any ain [...] f/u one month - call with questions [id number] Collin Mckeon MD [facility] [place] [address] [facility] [address] [place] [address] 09/21/2024 11:21:19 09/22/2024 10:45:06 History of cerebrovascular accident 186413101 Z86.73 condition chronic with left hemiparesi s. refer to [facility] Spasm of back muscles 20 6346171 M62.830 condition chronic due to cva refill the flexeril Chronic pain 54529133 G8 9.29 condition chronic on the left due to george cva refill the norco and refer to dr weems. Migraine 48712749 G43.90 9 condiotn chroinc nad at goal continuet he quilipta 60 mg Depressive disorder 3548 9007 F32.A condition chronic and at goal continue the sertraline Overweight 752751494 E66 .3 condition chroni and not at goal start low fat diet. Seasonal a llergic rhinitis 508713873 J30.2 conditon chronic and at goal continue the stiven no d Health Concerns Section Related Observation LastModified by Organization Detai ls LastModified Time None Recorded Concern Status LastModified by Organization Details LastModified Time None Recorded Advance Directives Directive N: Payers Encounter Date Sequence Insurance Name Policy Number Policy [place] Covered Member ID [place] Member ID Guarantor Name 10/20/2019 1 [facility] PRIOR TO 02/22/2021 (MEDICAID REPLACEMENT - HMO) Shahnaz Nicole [id number] Shahnaz Nicole 11/17/2019 1 [facility] PRIOR TO 02/22/2021 (MEDICAID REPLACEMENT - HMO) Shahnaz Nicole [id number] Shahnaz Nicole 12/27/2019 1 [facility] PRIOR TO 02/22/2021 (MEDICAID REPLACEMENT - HMO) Shahnaz Nicole [id number] Shahnaz Nicole 09/21/2024 1 [facility] (MEDICARE REPLACEMENT/AD VANTAGE - HMO) [id number] Shahnaz Nicole [id number] Shahnaz Nicole 09/21/2024 2 [place] WHEN MEDICARE OR MEDICARE REPLACEMENT PRIMARY) Shahnaz Nicole [id number] Shahnaz Nicole Notes Date Note Type Note Provider Name [...] changes. She now has left side paralysis. 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 VON [facility]IO Attn: Accounting,[address] [facility], [place], [address], [place] [facility] 10/21/2019 08:49:36 11/17/2019 text/html [...] her sleepy. VON BASILIO Attn: Accounting[address] [place], [address], [facility] 11/18/2019 13:39:09 12/27/2019 text/html Nick [...] her sleepy. VON BASILIO Attn: Accounting[address] [place], [address], [facility] 12/27/2019 15:50:09 09/21/2024 text/html presents to the office for initial evaluation states that she had a cva adn has left side hemiparesis. has 2 brain caverinomas. had the stroke from the surgery. has gerd adn allergies and anxiety and the depression is taking the quilipta for the migraines. Collin Mckeon MD Attn: Accounting[address] [place], [address], [facility] 09/21/2024 19:16:57 OBGyn Episode Ob Episode Information Episode Created Date Number of Fetuses Patient Bloodtype Patient rh Status Prepregnancy Weight lbs Domestic Partner Domestic Partner Phone Father Name Body Maker Status 10/20/19 20 1 CLOSED Fetus Data First Name Last Name Admitted to NICU Weight (g) Sex Living Outcome Pediatric Complications Fetus ID Race Codes Race Delivery Type F Full Term [id number] Vaginal Ronal Calculation Initial Ronal Date Initial [...]
--- OUTSIDE RECORDS SUMMARY | 2024-10-20 10:49 | XMS_ITS | Patient Health Summary ---
Author Organization [facility] Address [address] [place] [address] Care Team Providers Care Leather Production Worker Name Role Phone Ab Riggs MARGARITA-BARREL ASSEMBLER HELPER Primary Care Provider [phone] Note from [facility],non-owned Affiliates and Associated Physician Practices is amultiple site organization consisting of ambulatory clinics and hospital sitesin [place], [place], [place] and [place]. This disclosure is being madepursuant to the Care Everywhere program and may not contain all information available regarding this patient. Last updated 18.[facility] Allergies No known active allergies Medications * [...] IN EACH NOSTRIL EVERY DAY * HYDROcodone-acetaminophen ([place]) 10-325 MG tablet(Started 08/17/2023) Take 1 (one) [...] Supervision of high risk in second [facility] Encounter for anatomic survey H/O: stroke with [...] Comments Blood Pressure 115/79 07/01/2024 9:01 AM DOUGH CATCHER Pulse 99 07/01/2024 9:01 AM DOUGH CATCHER Temperature 36.9 C (98.4 F) 09/16/2023 10:19 AM DOUGH CATCHER Respiratory Rate 20 10/19/2019 10:43 AM DOUGH CATCHER Oxygen Saturation 99% 07/01/2024 9:01 AM DOUGH CATCHER Inhaled Oxygen Concentration - - Weight 75.1 kg (165 lb 8 oz) 07/01/2024 9:01 AM DOUGH CATCHER Height 167.6 cm (5' 6 ) 07/01/2024 9:01 AM DOUGH CATCHER Body Mass Index 26.71 07/01/2024 9:01 AM DOUGH CATCHER Medical Devices Implanted Type Area Corporate Director Of Pharmacy Device Identifier Shelf Expiration Date Model / Serial / Lot Aneurysm Clip Aneurysm Clip Description:Girma cardoso clip Procedures * WA CHEMODENERV ONE EXTREM 1-4 MUSCLES(Performed 06/28/2024) Performed [...] 03/08/2019) Performed for , unspecified gestational age ([facility]) * GLUCOSE PROTEIN KETONE URINE - POINT OF CAR(Performed 03/01/2019) Performed for Hx of craniotomy * GLUCOSE PROTEIN KETONE URINE - POINT OF CAR(Performed 02/22/2019) Performed for , unspecified gestational age ([facility]) * GLUCOSE PROTEIN KETONE URINE - POINT OF CAR(Performed 02/15/2019) Performed for , unspecified gestational age ([facility]) * GLUCOSE PROTEIN KETONE URINE - POINT OF CAR(Performed 02/15/2019) Performed for , unspecified gestational age ([facility]) * GTT 3 HR (100G) GESTATIONAL DIAGNOSTIC(Performed 02/08/2019) Performed for Elevated glucose level * CULTURE STREP B(Performed 02/08/2019) Performed for Supervision of normal first , antepartum ([facility]) * GLUCOSE PROTEIN KETONE URINE - POINT OF CAR(Performed 02/08/2019) Performed for Elevated glucose level * GLUCOSE - POINT OF CARE(Performed 02/08/2019) * GLUCOSE PROTEIN KETONE URINE - POINT OF CAR(Performed 01/25/2019) Performed for 32 weeks gestation of ([facility]) * GLUCOSE PROTEIN KETONE URINE - POINT OF CAR(Performed 01/06/2019) Performed for Encounter to establish gestational age using ultrasound ([facility]) * SONOGRAM - COMPLETE(Performed 01/06/2019) * GLUCOSE CHALLENGE(Performed 12/23/2018) Performed for , unspecified gestational age ([facility]) * GLUCOSE PROTEIN KETONE URINE - POINT OF CAR(Performed 12/23/2018) Performed for , unspecified gestational age ([facility]) * TYPE + SCREEN PANEL(Performed 12/02/2018) Performed for Encounter to establish gestational age using ultrasound ([facility]) * SYPHILIS ANTIBODY CASCADING REFLEX(Performed 12/02/2018) Performed for Encounter to establish gestational age using ultrasound ([facility]) * URINALYSIS REFLEX MICROSCOPIC REFLEX CULTURE(Performed 12/02/2018) Performed for Encounter to establish gestational age using ultrasound ([facility]) * HIV-1 HIV-2 ANTIBODY + HIV P24 AG PANEL(Performed 12/02/2018) Performed for Encounter to establish gestational age using ultrasound ([facility]) * CBC W AUTO DIFFERENTIAL(Performed 12/02/2018) Performed for Encounter to establish gestational age using ultrasound ([facility]) * GLUCOSE PROTEIN KETONE URINE - POINT OF CAR(Performed 12/02/2018) Performed for Encounter to establish gestational age using ultrasound ([facility]) * CHLAMYDIA + GC AMPLIFIED PROBE(Performed 11/04/2018) Performed for , unspecified gestational age ([facility]) * TRICHOMONAS RAPID TEST(Performed 11/04/2018) Performed for , unspecified gestational age ([facility]) * GLUCOSE PROTEIN KETONE URINE - POINT OF CAR(Performed 11/04/2018) Performed for , unspecified gestational age ([facility]) * SONOGRAM - COMPLETE(Performed 10/21/2018) Performed for Supervision of high risk in second trimester ([facility]) * BETA-2 GLYCOPROTEIN 1 ANTIBODY IGG/IGM PANEL(Performed 09/01/2018) Performed for , unspecified gestational age ([facility]) * CARDIOLIPIN ANTIBODY IGG/IGM PANEL(Performed 09/01/2018) Performed for , unspecified gestational age ([facility]) * PROTHROMBIN [id number] PANEL(Performed 09/01/2018) Performed for , unspecified gestational age ([facility]) * FACTOR V LEIDEN MUTATION PANEL(Performed 09/01/2018) Performed for , unspecified gestational age ([facility]) * RPR(Performed 09/01/2018) Performed for , unspecified gestational age ([facility]) * HIV-1 HIV-2 ANTIBODY + HIV P24 AG PANEL(Performed 09/01/2018) Performed for , unspecified gestational age ([facility]) * CBC W AUTO DIFFERENTIAL(Performed 09/01/2018) Performed for , unspecified gestational age ([facility]) * PAP THINPREP(Performed 09/01/2018) Performed for , unspecified gestational age ([facility]) * TRICHOMONAS VAGINALIS AMPLIFIED PROBE(Performed 09/01/2018) Performed for , unspecified gestational age ([facility]) * CHLAMYDIA + GC AMPLIFIED PROBE(Performed 09/01/2018) Performed for , unspecified gestational age ([facility]) * GLUCOSE PROTEIN KETONE URINE - POINT OF CAR(Performed 09/01/2018) Performed for , unspecified gestational age ([facility]) * SONOGRAM - COMPLETE(Performed 09/01/2018) Performed for Encounter for anatomic survey ([facility]) * IMAGING/RADIOLOGY/XRAY RESULTS ORDER(Performed 01/12/2018) [...] GROSS + MICRO EXAM(Performed 11/27/2006) Results * WA CHEMODENERV ONE EXTREM 1-4 MUSCLES (06/28/2024 9:33 AM DOUGH CATCHER) Narrative Dion Lund MD - 06/28/2024 9:33 AM DOUGH CATCHER Dion Lund MD 06/28/2024 9:39 AM Please see procedure notes Dion Crespo MD PROCEDURE/FELISHA R SURGICAL ORDERABLES * MRI BRAIN WWO CONTRAST (10/19/2019 10:16 AM DOUGH CATCHER) Only the most recent of4 resultswithin the time period is included. Anatomical Region Laterality Modality Head Magnetic Resonan ce 10/19/2019 10:5 9 AM DOUGH CATCHER Impressions 10/19/2019 1:36 PM DOUGH CATCHER IMPRESSION: Postoperative appearance of right pterional craniotomy [...] 1:36 PM . Narrative 10/19/2019 1:36 PM DOUGH CATCHER MRI BRAIN WWO CONTRAST DATE: 10/19/2019 10:17 [...] ORDERABLES * CREATININE BLOOD - POCT () [facility] (10/19/2019 9:16 AM DOUGH CATCHER) Only the most recent of2 resultswithin the time period is included. Creatinine POCT 1.14 0.3 - 1.3 mg/dL [facility] POCT TESTING eGFR POCT 60 60 ml/min [facility] POCT TESTING Blood BLOOD SPECIMEN / Unknown 10/19/2019 9:16 AM DOUGH CATCHER Iris Simmons MD LAB - POINT OF CARE ORDERABLES Performing Organization Address City/[facility]/ZIP Co de Phone Number [facility] POCT TESTING [address] [phone] * HCG URINE QUALITATIVE - POINT OF CARE (04/13/2019 2:03 PM CDT) HCG Qual Urine Negative Negative [facility] POCT TESTING QC Verified Yes Yes [facility] POC T TESTING Urine URINE / Unknown 04/13/2019 2 :03 PM CDT Gabriela Horowitz APRN-BARREL ASSEMBLER HELPER LAB - POINT OF CA RE ORDERABLES Performing Organization Address [facility] Co de Phone Number [facility] POCT TESTING [address] [place] [address] * IMAGING/RADIOLOGY/XRAY RESULTS ORDER (03/16/2019 10:25 AM CDT) Only the most recent of2 resultswithin the time period is included. Anatomical Region Laterality Modality Other Narrative 03/16/2019 10:25 AM CDT Ordered by an unspecified provider. Scanned Document IMAGING * (ABNORMAL) HGB HCT PANEL (03/14/2019 4:50 AM CDT) Hemoglobin 11.5(L) 12.0 - 15.6 gm/dL 03/14/2019 5:50 AM CDT [facility] Hematocrit 34.2(L) 35.9 - 45.5 % 03/14/2019 5:50 AM CDT [facility] Blood BLOOD SPECIMEN / Unknown Lab Venipuncture / Unknown 03/14/2019 4:50 AM CDT 03/14/2019 5:01 AM CDT Vandana Alexander MD LAB - HEMATOLOGY O RDERABLES Performing Organization Address [facility] Co de Phone Number [facility] [address] [place] [address] * (ABNORMAL) RUBELLA ANTIBODY IGG (03/13/2019 7:27 PM CDT) [facility] Rubella Antibody <0.90(L) Immune >0.99 index 03/16/2019 7:08 AM CDT [facility] ([facility]) Comment: Non-immune <0.90 Equivocal 0.90 - 0.99 Immune >0.99 Blood BLOOD SPECIMEN / Unknown Venipuncture / Unknown 03/13/2019 7:27 PM CDT 03/13/2019 7:31 PM CDT Narrative [facility] ([facility]) - 03/16/2019 7:08 AM CDT Performed at: - [address] [id number] Rubble Placer: Yrn Simpson PhD, Phone: [phone] Vandana Alexander MD LAB - SEROLOGY ORD ERABLES Performing Organization Address City/[facility] Co de Phone Number [facility]) [address] [place] [address] * HEPATITIS B SURFACE ANTIBODY (03/13/2019 7:27 PM CDT) [facility] HBsAb Non Reactive Non Reactive 03/13/2019 8:51 PM CDT [facility] Blood BLOOD SPECIMEN / Unknown Venipuncture / Unknown 03/13/2019 7:27 PM CDT 03/13/2019 7:31 PM CDT Vandana Alexander MD LAB - CHEMISTRY OR DERABLES Performing Organization Address City/[facility]/ZIP Co de Phone Number [facility] [address] [place] [address] * (ABNORMAL) CBC W AUTO DIFFERENTIAL (03/13/2019 5:30 PM CDT) Only the most recent of15 resultswithin the time period is included. [facility] WBC 10.7 4.4 - 10.7 x10E9/L 03/13/2019 6:43 PM CDT [facility] WBC Corrected x10E9/L 03/13/2019 6:43 PM CDT [facility] RBC 4.51 3.80 - 5.20 x10E12/L 03/13/2019 6:43 PM CDT [facility] Hemoglobin 13.5 12.0 - 15.6 gm/dL 03/13/2019 6:43 PM CDT [facility] Hematocrit 40.4 35.9 - 45.5 % 03/13/2019 6:43 PM CDT [facility] MCV 89.6 80.7 - 98.3 fl 03/13/2019 6:43 PM CDT [facility] MCH 29.9 26.7 - 34.0 pg 03/13/2019 6:43 PM CDT [facility] MCHC 33.4 30.8 - 35.9 gm/dL 03/13/2019 6:43 PM CDT [facility] Platelet Count 237 153 - 416 x10E9/L 03/13/2019 6:43 PM CDT [facility] RDW-CV 13.2 12.1 - 14.9 % 03/13/2019 6:43 PM CDT [facility] MPV 10.5 9.4 - 12.9 fl 03/13/2019 6:43 PM CDT [facility] Neutrophils % 77.5(H) 44.0 - 73.0 % 03/13/2019 6:43 PM CDT [facility] Lymphocytes % 14.6(L) 20.0 - 43.0 % 03/13/2019 6:43 PM CDT [facility] Monocytes % 6.8 5.0 - 13.0 % 03/13/2019 6:43 PM CDT [facility] Eosinophils % 0.5 0.0 - 6.0 % 03/13/2019 6:43 PM CDT [facility] Basophils % 0.2 0.0 - 2.0 % 03/13/2019 6:43 PM CDT [facility] Immature Granulocytes 0.4 0 - 1 % 03/13/2019 6:43 PM CDT [facility] Neutrophil Absolute 8.32(H) 2.01 - 7.14 x10E9/L 03/13/2019 6:43 PM CDT [facility] Lymphocytes Absolute 1.56 1.07 - 3.94 x10E9/L 03/13/2019 6:43 PM CDT [facility] Monocytes Absolute 0.73 0.26 - 1.07 x10E9/L 03/13/2019 6:43 PM CDT [facility] Eosinophils Absolute 0.05 0 - 0.47 x10E9/L 03/13/2019 6:43 PM CDT [facility] Basophils Absolute 0.02 0 - 0.08 x10E9/L 03/13/2019 6:43 PM CDT [facility] Immature Granulocytes Absolute 0.04 0.00 - 0.06 x10E9/L 03/13/2019 6:43 PM CDT [facility] nRBC Auto 0 /100 WBC 03/13/2019 6:43 PM CDT [facility] Blood BLOOD SPECIMEN / Unknown Lab Venipuncture / Unknown 03/13/2019 5:30 PM CDT 03/13/2019 6:39 PM CDT Alma Ravi MD LAB - HEMATOLOGY ORD ERABLES [facility] [address] [place] [address] * (ABNORMAL) BLOOD GASES CORD MIR (ISTAT) (03/13/2019 5:21 PM CDT) pH Cord Venous POCT 7.24(L) 7.28 - 7.40 pH 03/13/2019 5:59 PM CDT [facility] pCO2 Cord Venous POCT 53(H) 35 - 45 mmHg 03/13/2019 5:59 PM CDT [facility] pO2 Cord Venous POCT 19(L) 22 - 33 mmHg 03/13/2019 5:59 PM CDT [facility] HCO3 Cord Arterial POCT 22.6 22 - 24 mmol/L 03/13/2019 5:59 PM CDT [facility] BE Cord Venous POCT Calc -6 -6.4 - 1.6 mmol/L 03/13/2019 5:59 PM CDT [facility] TCO2 Cord Venous POCT 24 22 - 30 mmol/L 03/13/2019 5:59 PM CDT [facility] O2 Saturation % Cord Venous Calc POCT 22 % 03/13/2019 5:59 PM CDT [facility] Site CORD MIR 03/13/2019 5:59 PM CDT [facility] Sample iSTAT CORD V 03/13/2019 5:59 PM CDT [facility] Blood CORD BLOOD SPECIMEN / Unknown 03/13/2019 5:21 PM CDT 03/13/2019 5:59 PM CDT Tessy Christiansen MD LAB - POINT OF CARE ORDERABLES Performing Organization Address [facility] Co de Phone Number [facility] [address] [place], [place] [phone] * (ABNORMAL) BLOOD GASES CORD ART (ISTAT) [...] - 24 mmol/L 03/13/2019 5:59 PM CDT [facility] BE Cord Arterial POCT -6(L) -2.9 - 8.3 mmol/L 03/13/2019 5:59 PM CDT [facility] TCO2 Cord Arterial POCT 26 mmol/L 03/13/2019 5:59 PM CDT [facility] O2 Saturation Cord Art % Calc POCT 17 % 03/13/2019 5:59 PM CDT [facility] Site CORD ART 03/13/2019 5:59 PM CDT [facility] Sample iSTAT CORD A 03/13/2019 5:59 PM CDT [facility] Blood CORD BLOOD SPECIMEN / Unknown 03/13/2019 5:17 PM CDT 03/13/2019 5:59 PM CDT Tessy Christiansen MD LAB - POINT OF CARE ORDERABLES [facility] [address] [place] [phone] * TYPE + SCREEN PANEL (03/13/2019 3:30 PM CDT) Only the most recent of3 resultswithin the time period is included. ABO A 03/13/2019 4:33 PM CDT [facility] Rh Type Negative 03/13/2019 4:33 PM CDT [facility] Comment:History checked. Antibody Screen Negative 03/13/2019 4:33 PM CDT [facility] Blood Bank BLOOD SPECIMEN / Unknown Lab Venipuncture / Unknown 03/13/2019 3:30 PM CDT 03/13/2019 4:04 PM CDT Vandana Alexander MD LAB - BLOOD BANK O RDERABLES [facility] [address] [place] [address] * (ABNORMAL) WET PREP SMEAR - POINT [...] Unknown 03/08/2019 9:05 AM CDT Francisca Mora APRN-BARREL ASSEMBLER HELPER LAB - POINT OF CARE ORDERABLES Performing Organization Address City/[facility] Co de Phone Number [facility] POCT TESTING [address] [place] [address] * GLUCOSE PROTEIN KETONE URINE - POINT [...] MD LAB - POINT OF CARE ORDERABLES [facility] POCT TESTING [address] [phone] * (ABNORMAL) GTT 3 HR (100G) GESTATIONAL DIAGNOSTIC (02/08/2019 11:45 AM CDT) Pathologist [facility] Glucose Dose Gestational 100 gm 02/08/2019 1:10 PM CDT [facility] Gestational GTT Fasting 89 50-<95 mg/dL 02/08/2019 1:10 PM CDT [facility] Gestational GTT 1 HR 165 50-<180 mg/dL 02/08/2019 1:10 PM CDT [facility] Gestational GTT 2 HR 157(H) 50-<155 mg/dL 02/08/2019 1:10 PM CDT [facility] Gestational GTT 3 HR 138 50-<140 mg/dL 02/08/2019 1:10 PM CDT [facility] Blood BLOOD SPECIMEN / Unknown Venipuncture / Unknown 02/08/2019 11:45 AM CDT 02/08/2019 8:56 AM CDT Marylin Obrien MD LAB - CHEMISTRY ORDE RABLES Performing Organization Address City/[facility]/ZIP Co de Phone Number [facility] [address] [place] [address] * CULTURE STREP B (02/08/2019 10:46 AM CDT) [facility] Culture Strep B Negative for beta-hemolytic Streptococcus Group B JIAN 02/11/2019 10:03 AM CDT [facility] MICROBIOLOGY Microbiology MISCELLANEOUS SAMPLES / Unknown Collection / Unknown 02/08/2019 10:46 AM CDT 02/08/2019 10:58 AM CDT Eileen Ivan MD LAB - MICROBIOLOG Y ORDERABLES [facility] MICROBIOLOGY [address] [place] [address], [facility] [phone] * GLUCOSE - POINT OF CARE (02/08/2019 8:32 AM CDT) [facility] Glucose WB/POC 91 70 - 106 mg/dL 02/08/2019 8:44 AM CDT [facility] Specimen Type Arterial/C apillary 02/08/2019 8:44 AM CDT [facility] Blood BLOOD SPECIMEN / Unknown 02/08/2019 8:32 AM CDT 02/08/2019 8:44 AM CDT Corinne Gregorio MD LAB - POINT OF CARE ORDERABLES Performing Organization Address City/State/[facility] Co de Phone Number [facility] [address] [place] [address] * SONOGRAM - COMPLETE (01/06/2019 1:28 PM CDT) Only the most recent of3 resultswithin the time period is included. Anatomical Region Laterality Modality Other 01/06/2019 1:28 PM CDT Narrative 01/06/2019 4:08 PM CDT [facility] PHONE: FAX: Pat. Name: MARIA NICOLE Pat. No: [id number] Study Date: 01/06/2019 1:28pm , Age: 02 1995, 23 Pregnancies: 1, Para 0 Height: 66 in Weight: 150 lb LMP: Unknown GA by Base: 30w1d POOL: 03/16/2019 GA by US: 29w5d POOL: 03/19/2019 GA Selected: 30w1d (From [facility]) POOL: 03/16/2019 Referring MD: MD Vishnu, [facility] Control Clerk Auditing: Jazzy Grajeda RDMS CPT4: 64729 BMI: 24.21 Hist/Ind: Complete anatomy Growth 2018 Brain surgery/Stroke-Cavernomas 2000Cavernomas MEASUREMENTS & AGE GROWTH EVALUATION Measurement GA Range Srce %for GA Ratios ----- ---- ------- BPD 7.6 cm 30w2d (39z6q-94u0m) Hadl BPD 40% FL/BPD 0.75 (0.71 - 0.87) HC 27.7 cm 30w2d (15n8k-55s9i) Hadl HC 17% FL/AC 0.21 (0.20 - 0.24) AC 26.4 cm 30w4d (21t2t-98d0i) Hadl AC 55% HC/AC 1.05 (0.97 - 1.16) FL 5.7 cm 29w5d (41l0h-14x2m) Hadl FL 24% CI 0.80 (0.70 - 0.86) HL 5.1 cm 29w6d (89v4k-13a9w) Jusuts HL 45% GA for sonogram 29w5d (72v9p-53r4c) Weight Estimate: based on (BPD,HC,AC,FL) [place]lock Weight: [...] <Electronic Signature> 01/06/2019 04:06pm Daisha Barriga MD [facility] ORDERABLES * (ABNORMAL) GLUCOSE CHALLENGE (12/23/2018 1:26 PM CDT) Glucose Challenge 153(H) 64 - 140 mg/dL 12/23/2018 2:35 PM CDT [facility] Glucose Challenge Time 12/23/2018 2:35 PM CDT [facility] Blood BLOOD SPECIMEN / Unknown Venipuncture / Unknown 12/23/2018 1:26 PM CDT 12/23/2018 1:40 PM CDT Jillian Fletcher MD LAB - CHEMISTRY AYAH ZAYAS Performing Organization Address [facility] Co de Phone Number [facility] [address] [place], [place] [phone] * SYPHILIS ANTIBODY CASCADING REFLEX (12/02/2018 1:33 PM CDT) Pathologist [facility] Treponema pallidum Antibody Non Reactive Non Reactive 12/02/2018 2:44 PM CDT [facility] Comment: No Laboratory evidence of syphilis infection. Note: Circulating antibodies may be low or undetectable in early infection. If recent exposure is suspected, re-draw sample in 2-4 weeks and repeat testing. Blood BLOOD SPECIMEN / Unknown Venipuncture / Unknown 12/02/2018 1:33 PM CDT 12/02/2018 1:59 PM CDT Marcelina Tapia MD LAB - SEROLOGY ORDER DELORES Performing Organization Address [facility] Co de Phone Number [facility] [address] [place] [phone] * HIV-1 HIV-2 ANTIBODY + HIV P24 AG PANEL (12/02/2018 1:33 PM CDT) Only the most recent of2 resultswithin the time period is included. HIV1/2 Ab + P24 Ag Non Reactive Non Reactive 12/02/2018 6:42 PM CDT [facility] Blood BLOOD SPECIMEN / Unknown Venipuncture / Unknown 12/02/2018 1:33 PM CDT 12/02/2018 1:59 PM CDT Narrative [facility] - 12/02/2018 6:42 PM CDT No Laboratory evidence of HIV infection. Marcelina Tapia MD LAB - CHEMISTRY AYAH ZAYAS [facility] [place] [address] * (ABNORMAL) URINALYSIS REFLEX MICROSCOPIC REFLEX CULTURE (12/02/2018 1:33 PM CDT) Pathologist [facility] Color UA Yellow Straw, Yellow 12/02/2018 2:11 PM CDT [facility] Clarity UA Slt Cloudy(A) Clear 12/02/2018 2:11 PM CDT [facility] Glucose UA Negative Negative 12/02/2018 2:11 PM CDT [facility] Bilirubin UA Negative Negative 12/02/2018 2:11 PM CDT [facility] Ketone UA Negative Negative 12/02/2018 2:11 PM CDT [facility] Specific [place] UA 1.016 1.005 - 1.030 12/02/2018 2:11 PM CDT [facility] Blood UA Negative Negative 12/02/2018 2:11 PM CDT [facility] pH UA 6.0 5.0 - 8.0 pH 12/02/2018 2:11 PM CDT [facility] Protein UA Negative Negative 12/02/2018 2:11 PM CDT [facility] Urobilinogen UA Negative Negative mg/dL 12/02/2018 2:11 PM CDT [facility] Nitrite UA Negative Negative 12/02/2018 2:11 PM CDT [facility] Leukocyte UA Negative Negative 12/02/2018 2:11 PM CDT [facility] Urine Microscopy Urine microscopy not indicated 12/02/2018 2:11 PM CDT [facility] Reflex Status Culture not indicated 12/02/2018 2:11 PM CDT [facility] Urine URINE SPECIMEN OBTAINED BY CLEAN CATCH PROCEDURE / Unknown Collection / Unknown 12/02/2018 1:33 PM CDT 12/02/2018 1:57 PM CDT Narrative [facility] - 12/02/2018 2:11 PM CDT Marcelina Tapia MD LAB - URINALYSIS ORD ERABLES Performing Organization Address [facility]/ZIP Co de Phone Number [facility] [address] [place] [address] [phone] * TRICHOMONAS RAPID TEST (11/04/2018 2:42 PM CDT) Trichomonas Rapid Test Negative Negative 11/04/2018 3:11 PM CDT [facility] Microbiology VAGINAL SWAB / Unknown Collection / Unknown 11/04/2018 2:42 PM CDT 11/04/2018 2:56 PM CDT Eileen Wong MD LAB - MICROBI OLOGY ORDERABLES Performing Organization Address [facility] Co de Phone Number [facility] [address] [place] [phone] * CHLAMYDIA + GC AMPLIFIED PROBE (11/04/2018 2:42 PM CDT) Only the most recent of2 resultswithin the time period is included. Chlamydia Amplified Probe Negative Negative 11/05/2018 8:19 AM CDT [facility] MICRO[facility]OLOG[facility] GC Amplified Probe Negative Negative 11/05/2018 8:19 AM CDT [facility]CRO[facility] Microbiology ENTIRE ENDOCERVIX / Unknown Collection / Unknown 11/04/2018 2:42 PM CDT 11/04/2018 2:56 PM CDT Narrative [facility] MICRO[facility]OLOG[facility] - 11/05/2018 8:19 AM CDT Results based on detection/no detection of ribosomal RNA by amplified method. Eileen Wong MD LAB - MICROBI OLOGY ORDERABLES Performing Organization Address City/[facility]/ZIP Co de Phone Number [facility] MICROBIOLOGY [address] [place] [address] [phone] * PROTHROMBIN [id number] PANEL (09/01/2018 4:37 PM DOUGH CATCHER) [facility] Factor II DNA Analysis Comment 09/08/2018 12:15 PM DOUGH CATCHER [facility] ([facility]) Comment: NEGATIVE No mutation identified. Comment: A point mutation ([id number]) in the factor II (prothrombin) gene is [...] mutations. This assay detects only the prothrombin [id number] mutation and does not measure genetic abnormalities [...] health care providers to discuss results at [phone]). Methodology: DNA analysis of the Factor II gene was performed by PCR amplification followed by restriction analysis. The diagnostic sensitivity is >99% for both. All the tests must be combined with clinical information for the most accurate interpretation. Molecular-based testing is highly accurate, but as in any laboratory test, diagnostic errors may occur. This test was developed and its performance characteristics determined by [employer]. It has not been cleared or approved by the Food and Drug Administration. Shamika SR, et al. Blood. 1996; 88:4772-2963. Aisha SHEPPARD. Circulation. 2004; 110:e15-e18. Mary I, et al. Arterioscler Thromb Vasc Biol. 1999; 19:700-703. Wicho Smart, PhD, [facility] Geri Laureano, PhD, [facility] Leighann Chaudhary M.S., PhD, [facility] Norah Kinsey, PhD, [facility] Bibi Calderon, PhD, [facility] Joselito Emanuel, PhD, [facility] Blood BLOOD SPECIMEN / Unknown Venipuncture / Unknown 09/01/2018 4:37 PM DOUGH CATCHER 09/01/2018 4:43 PM DOUGH CATCHER [facility] ([facility]) - 09/08/2018 12:15 PM DOUGH CATCHER Performed at: [address] [place] [address] [id number] Rubble Placer: Xavier Cohn MD, Phone: [phone] Eileen Wong MD LAB - COAGULA TION ORDERABLES [facility] ([facility]) [address] [place] [address] * FACTOR V LEIDEN MUTATION PANEL (09/01/2018 4:37 PM DOUGH CATCHER) [facility] Factor V Leiden Comment 9 5:10 PM DOUGH CATCHER [facility] ([facility]) Comment: Result: Negative (no mutation found) Factor [...] the workup for venous thrombosis include the [id number] mutation in the factor II (prothrombin) gene, protein S and C deficiency, and antithrombin deficiencies. Anticardiolipin antibody and lupus anticoagulant analysis may be appropriate for certain patients, as well as homocysteine levels. [facility] for information on how to order additional testing if desired. Genetic counselors are available for health care providers to discuss results at [phone] ([phone]). Methodology: DNA analysis of the Factor V gene was performed by allele-specific PCR. The diagnostic sensitivity and specificity is >99% for both. Molecular-based testing is highly accurate, but as in any laboratory test, diagnostic errors may occur. All test results must be combined with clinical information for the most accurate interpretation. This test was developed and its performance characteristics determined by [facility]. It has not been cleared or approved by the Food and Drug Administration. References: Garland Brandt (1995). Clin Lab Med 16:169-186. Wicho Smart, PhD, [facility] Geri Laureano, PhD, [facility] Lashawn OsmanS., PhD, [facility] Norah Kinsey, PhD, [facility] Bibi Calderon, PhD, [facility] Joselito Emanuel PhD, [facility] Blood BLOOD SPECIMEN / Unknown Venipuncture / Unknown 09/01/2018 4:37 PM DOUGH CATCHER 09/01/2018 4:43 PM DOUGH CATCHER Narrative [facility] ([facility]) - 09/07/2018 5:10 PM DOUGH CATCHER Performed at: [address] [place] [address] [id number] Rubble Placer: Xavier Cohn MD, Phone: [phone] Eileen Wong MD LAB - COAGULA TION ORDERABLES [facility] ([facility]) [address] [place] [address] * CARDIOLIPIN ANTIBODY IGG/IGM PANEL (09/01/2018 4:37 PM DOUGH CATCHER) [facility] Cardiolipin Antibody IgG <9 0 - 14 GPL U/mL 09/03/2018 3:20 PM DOUGH CATCHER [facility] ([facility]) Comment: Negative: <15 Indeterminate: 15 - 20 Low-Med Positive: >20 - 80 High Positive: >80 Cardiolipin Antibody IgM 11 0 - 12 MPL U/mL 09/03/2018 3:20 PM DOUGH CATCHER [facility] ([facility]) Comment: Negative: <13 Indeterminate: 13 - 20 Low-Med Positive: >20 - 80 High Positive: >80 Blood BLOOD SPECIMEN / Unknown Venipuncture / Unknown 09/01/2018 4:37 PM DOUGH CATCHER 09/01/2018 4:43 PM DOUGH CATCHER Narrative [facility] ([facility]) - 09/03/2018 3:20 PM DOUGH CATCHER Performed at: [address] [place] [address] [id number] Rubble Placer: Yrn Simpson PhD, Phone: [phone] Eileen Wong MD LAB - SEROLOG Y ORDERABLES [facility] ([facility]) [address] [place] [address] * RPR (09/01/2018 4:37 PM DOUGH CATCHER) Pathologist [facility] RPR Non Reactive Non Reactive 09/02/2018 8:28 AM DOUGH CATCHER [facility] Blood BLOOD SPECIMEN / Unknown Venipuncture / Unknown 09/01/2018 4:37 PM DOUGH CATCHER 09/01/2018 4:42 PM DOUGH CATCHER Eileen Wong MD LAB - CAGE OPERATOR RY ORDERABLES [facility] [address] [place] [address] * BETA-2 GLYCOPROTEIN 1 ANTIBODY IGG/IGM PANEL (09/01/2018 4:37 PM DOUGH CATCHER) Beta-2 Glycoprotein I Antibody IgG <9 0 - 20 GPI IgG units 09/04/2018 5:16 AM DOUGH CATCHER [facility] ([facility]) Comment: The reference interval reflects a 3SD or 99th percentile interval, which is thought to represent a potentially clinically significant result in accordance with the International Consensus Statement on the classification criteria for definitive antiphospholipid syndrome (APS). J Thromb Haem 2006;4:295-306. Beta-2 Glycoprotein I Antibody IgM <9 0 - 32 GPI IgM units 09/04/2018 5:16 AM DOUGH CATCHER [facility] ([facility]) Comment: The reference interval reflects a 3SD or 99th percentile interval, which is thought to represent a potentially clinically significant result in accordance with the International Consensus Statement on the classification criteria for definitive antiphospholipid syndrome (APS). J Thromb Haem 2006;4:295-306. Blood BLOOD SPECIMEN / Unknown Venipuncture / Unknown 09/01/2018 4:37 PM DOUGH CATCHER 09/01/2018 4:43 PM DOUGH CATCHER Narrative [facility] ([facility]) - 09/04/2018 5:16 AM DOUGH CATCHER Performed at: - [facility] [id number] Rubble Placer: Mary Jo Jonas MD, Phone: [phone] Eileen Wong MD LAB - CAGE OPERATOR RY ORDERABLES [facility] ([facility]) [address] [place] [address] * PAP THINPREP (09/01/2018 4:36 PM DOUGH CATCHER) Diagnosis Comment 09/07/2018 4:19 PM DOUGH CATCHER [facility] ([facility]) Comment: NEGATIVE FOR INTRAEPITHELIAL LESION AND MALIGNANCY. THIS SPECIMEN WAS RESCREENED PART OF OUR YARD ATTENDANT PROGRAM. Specimen Adequacy Comment 019 4:19 PM DOUGH CATCHER [facility] ([facility]) Comment: Satisfactory for evaluation. Endocervical and/or squamous metaplastic cells (endocervical component) are present. Performed by Comment 09/07/2018 4:19 PM DOUGH CATCHER [facility] ([facility]) Comment:Syeda Ramirez Cytot echnologist ([facility]) QC Reviewed by Comment 09/07/2018 4:19 PM DOUGH CATCHER [facility] ([facility]) Comment:Cherrie Gipson [facility] Contracts Analyst (ASCP) Comment . 09/07/2018 4:19 PM DOUGH CATCHER [facility] ([facility]) Note Comment 09/07/2018 4:19 PM DOUGH CATCHER [facility] ([facility]) Comment: The Pap smear is a [...] Unknown Collection / Unknown 09/01/2018 4:36 PM DOUGH CATCHER 09/01/2018 4:45 PM DOUGH CATCHER Narrative [facility] ([facility]) - 09/07/2018 4:19 PM DOUGH CATCHER Performed at: - [address] [id number] Rubble Placer: Jovanna Castro MD, Phone: [phone] Specimen Comment: Source.............Cervix Specimen Comment: LMP / Prev Treat...None Specimen Comment: Other.............. Specimen Comment: No. of containers..01 ThinPrep Vial Eileen Wong MD LAB - PATHOLO GY/CYTOLOGY ORDERABLES Performing Organization Address City/[facility]/ZIP Co de Phone Number [facility] ([facility]) [address] [place] [address] * TRICHOMONAS VAGINALIS AMPLIFIED PROBE (09/01/2018 4:36 PM DOUGH CATCHER) Pathologist [facility] Trichomonas vaginalis Amplified Probe Negative Negative 09/03/2018 7:19 AM DOUGH CATCHER [facility] MICRO[facility] Microbiology ENTIRE VAGINA / Unknown Collection / Unknown 09/01/2018 4:36 PM DOUGH CATCHER 09/01/2018 4:45 PM DOUGH CATCHER Narrative [facility] - 09/03/2018 7:19 AM DOUGH CATCHER Results based on detection/no detection of ribosomal RNA by amplified method. Eileen Wong MD LAB - MICROBI OLOGY ORDERABLES [facility] [address] [place] [address], [facility] [phone] * BASIC METABOLIC PANEL (CALCIUM TOTAL) (11/01/2017 4:01 AM DOUGH CATCHER) Only the most recent of5 resultswithin the time period is included. Pathologist [facility] BUN 12 7 - 26 mg/dL [facility] Creatinine 0.6 0.6 - 1.2 mg/dL [facility] Sodium 139 136 - 145 mmol/L [facility] Potassium 3.9 3.5 - 4.5 mmol/L [facility] Chloride 102 98 - 107 mmol/L [facility] CO2 28 22 - 29 mmol/L [facility] Glucose 112 70 - 115 mg/dL [facility] Calcium 9.2 8.4 - 10.2 mg/dL [facility] Anion Gap 13 8 - 18 [facility] BUN/Creatinine Ratio 20 7 - 23 [facility] Osmolality Calculated 289 270 - 300 mOsm/kg [facility] eGFR >60 >60 mL/min/1.7 3 m2 [facility] Blood specimen (specimen) BLOOD SPECIMEN / Unknown 11/01/2017 4:01 AM DOUGH CATCHER 11/01/2017 4:11 AM DOUGH CATCHER Aparna DUQUE LAB - CHEMISTRY ORDE RABLES Performing Organization Address [facility]/ZIP Co de Phone Number [address] [phone] * SPECIFIC GRAVITY URINE (10/30/2017 12:19 AM DOUGH CATCHER) Only the most recent of2 resultswithin the time period is included. Specific [place] UA 1.012 1.001 - 1.030 [facility] Urine specimen (specimen) 10/30/2017 12:19 AM DOUGH CATCHER 10/30/2017 12:27 AM DOUGH CATCHER Addison Campos MD LAB - URINALYSIS ORD ERABLES [address] [phone] * OSMOLALITY URINE (10/30/2017 12:19 AM DOUGH CATCHER) Only the most recent of2 resultswithin the time period is included. Osmolality Urine 341 50 - 1,200 mOsm/kg [facility] Urine specimen (specimen) URINE / Unknown 10/30/2017 12:19 AM DOUGH CATCHER 10/30/2017 12:27 AM DOUGH CATCHER Addison Campos MD LAB - URINE CHEMISTR Y ORDERABLES Performing Organization Address [facility] Co de Phone Number [address] [phone] * PHOSPHORUS BLOOD (10/30/2017 12:19 AM DOUGH CATCHER) Only the most recent of3 resultswithin the time period is included. Phosphorus 3.3 2.3 - 4.7 mg/dL [facility] Blood specimen (specimen) BLOOD SPECIMEN / Unknown 10/30/2017 12:19 AM DOUGH CATCHER 10/30/2017 12:33 AM DOUGH CATCHER Addison Campos MD LAB - CHEMISTRY AYAH ZAYAS Performing Organization Address [facility] Co de Phone Number [address] [phone] * MAGNESIUM BLOOD (10/30/2017 12:19 AM DOUGH CATCHER) Only the most recent of3 resultswithin the time period is included. Pathologist [facility] Magnesium 2.2 1.6 - 2.6 mg/dL [facility] Blood specimen (specimen) BLOOD SPECIMEN / Unknown 10/30/2017 12:19 AM DOUGH CATCHER 10/30/2017 12:33 AM DOUGH CATCHER Addison Campos MD LAB - CHEMISTRY AYAH ZAYAS Performing Organization Address [facility] Co de Phone Number [address] [phone] * (ABNORMAL) DIFFERENTIAL MANUAL (10/28/2017 11:38 PM DOUGH CATCHER) WBC (corrected for NRBC) 18.9 10 3/uL [facility] Total Cell Count 100 [facility] Neutrophils Absolute Manual 17.01(H) 1.60 - 7.00 10 3/uL [facility] Comment:(BANDS+SEGS) x WBC = NEUT # (ANC) Lymphocyte Absolute Manual 0.76(L) 0.80 - 2.90 10 3/uL [facility] Monocytes Absolute Manual 1.13(H) 0.14 - 0.66 10 3/uL [facility] Band % Manual 1 0 - 10 % [facility] Neutrophil % Manual 89(H) 30 - 60 % [facility] Lymphocyte % Manual 4(L) 20 - 45 % [facility] Monocytes % Manual 6 2 - 10 % [facility] Platelet Estimate Adequate Adequate [facility] RBC Morphology Normal [facility] Blood specimen (specimen) BLOOD SPECIMEN / Unknown 10/28/2017 11:38 PM DOUGH CATCHER 10/28/2017 11:55 PM DOUGH CATCHER Addison Campos MD LAB - HEMATOLOGY ORD ERABLES [address] [phone] * SODIUM BLOOD (10/28/2017 10:40 PM DOUGH CATCHER) Sodium 141 136 - 145 mmol/L [facility] Blood specimen (specimen) BLOOD SPECIMEN / Unknown 10/28/2017 10:40 PM DOUGH CATCHER 10/28/2017 10:52 PM DOUGH CATCHER Addison Campos MD LAB - CHEMISTRY ORDE RABLES Performing Organization Address City/[facility] Co de Phone Number [address] [phone] * CT HEAD WO CONTRAST (10/27/2017 2:11 PM DOUGH CATCHER) Anatomical Region Laterality Modality Head Other Impressions 10/27/2017 3:46 PM DOUGH CATCHER IMPRESSION: 1. Status post right pterional craniotomy [...] 3:46 PM . Narrative 10/27/2017 3:46 PM DOUGH CATCHER EXAMINATION: Computed tomography (CT) of the head [...] right temporal fossa and right periorbital region. Wknvz-uk-fbczkghr volume pneumocephalus is seen along both anterior [...] the right temporal fossa and right periorbital region.Jpmaz-br-vvuodilz volume pneumocephalus is seen along both anteriorfrontal [...] ORDERABLES * PATHOLOGY TISSUE (10/27/2017 11:58 AM DOUGH CATCHER) Surgical Pathology Tissue ACCESSION No: [id number] CLINICAL HISTORY: Cavernoma. FINAL DIAGNOSIS: Brain, mass, [...] sectioned and submitted entirely in cassette A1. [place]/edk The performance characteristics of all immunohistochemical and indirect immunofluorescence stains (if any) cited in this report were determined by the Histopathology Laboratory of [facility]. Some of these tests were developed by [...] by Vandana Partida MD. Electronically signed 10/28/2017 [facility] PATHOLOGY LAB Resection with Tumor ENTIRE BRAIN / Unknown 10/27/2017 11:58 AM DOUGH CATCHER 10/27/2017 2:16 PM DOUGH CATCHER Narrative [facility] PATHOLOGY LAB - 10/28/2017 9:20 PM DOUGH CATCHER Pre-op diagnosis: cavernoma Addison Campos MD LAB - PATHOLOGY/CYTO LOGY ORDERABLES Performing Organization Address [facility]/State/[facility] Co de Phone Number [facility]OLOG[facility] LAB [address] [phone] * (ABNORMAL) BLOOD GASES ART COMPLETE [facility] OR (10/27/2017 9:04 AM DOUGH CATCHER) pH Arterial 7.24(L) 7.35 - 7.45 [facility] pCO2 Arterial 59(H) 35 - 45 mmHg [facility] pO2 Arterial 347(H) 82 - 106 mmHg [facility] HCO3 Arterial 24.8 22.0 - 26.0 mmol/L [facility] TCO2 Arterial 26.6 25.0 - 29.0 mmol/L [facility] Base Excess Arterial -3.4(L) -2.0 - 2.0 mmol/L [facility] Hemoglobin Arterial 12.5 12.0 - 15.5 g/dL [facility] Oxyhemoglobin Arterial 98.1 95.0 - 100.0 % [facility] Carboxyhemoglobin 0.3 0.0 - 3.0 % [facility] Methemoglobin 0.8 0.0 - 2.0 % [facility] FI O2 Arterial 80.0 % [facility] Ionized Calcium Whole Blood 1.19 mmol/L [facility] Adjusted Ionized Calcium 1.11(L) 1.19 - 1.34 mmol/L [facility] Sodium Whole Blood 137 135 - 145 mmol/L [facility] Potassium Whole Blood 3.5 3.5 - 5.5 mmol/L [facility] Chloride Whole Blood 108 101 - 111 mmol/L [facility] Glucose Whole Blood 146(H) 70 - 110 mg/dL [facility] Lactic Acid Whole Blood 1.3 0.5 - 3.4 mmol/L [facility] Blood specimen (specimen) 10/27/2017 9:04 AM DOUGH CATCHER 10/27/2017 9:15 AM DOUGH CATCHER Ralph Tai MD LAB - BLOOD GASES OR DERABLES Performing Organization Address City/State/[facility] Co de Phone Number [address] [phone] * CT ANGIO BRAIN STEREOTACTIC (10/27/2017 7:24 AM DOUGH CATCHER) Anatomical Region Laterality Modality Head Other Impressions 10/27/2017 11:50 AM DOUGH CATCHER IMPRESSION: 1. Cavernous malformation centered between the [...] 11:50 AM . Narrative 10/27/2017 11:50 AM DOUGH CATCHER EXAMINATION: Computed tomographic (CT) angiography of the [...] * CROSSMATCH RBC LEUKOREDUCED (10/27/2017 7:06 AM DOUGH CATCHER) 10/27/2017 7:06 AM DOUGH CATCHER 10/27/2017 7:06 AM [address] [facility] - 10/27/2017 7:06 AM DOUGH CATCHER # of Units->4 Addison Campos MD LAB - BLOOD BANK ORD ERABLES [facility] [address] [place] [address], [facility] * PREPARE FFP UNIT(S) (10/27/2017 7:06 AM DOUGH CATCHER) Unit FFP N/A [facility] BLOOD BANK PRODUCTS (BEAKER) 10/27/2017 7:06 AM DOUGH CATCHER 10/27/2017 7:06 AM DOUGH CATCHER Narrative [facility] BLOOD BANK PRODUCTS (BEAKER) - 10/27/2017 7:06 AM DOUGH CATCHER # of Units->2 Addison Campos MD LAB - BLOOD BANK ORD ERABLES Performing Organization Address [facility] Co de Phone Number [facility] BLOOD BANK PRODUCTS (BEAKER) * PTT [facility] (10/16/2017 2:06 PM DOUGH CATCHER) APTT 28.6 23.0 - 38.4 Seconds [facility] Comment:Suggested therapeuti c range for full dose I.V. heparin therapy for venous thromboembolism is 66.0-91.0 seconds. Blood specimen (specimen) BLOOD SPECIMEN / Unknown 10/16/2017 2:06 PM DOUGH CATCHER 10/16/2017 2:29 PM DOUGH CATCHER Narrative [facility] - 10/16/2017 2:40 PM DOUGH CATCHER Is patient on Heparin, Argatroban or Dabigatran?->N Addison Campos MD LAB - COAGULATION OR DERABLES Performing Organization Address [facility] Co de Phone Number [address] [phone] * PT-INR [facility] (10/16/2017 2:06 PM DOUGH CATCHER) PT 13.6 12.1 - 14.8 Seconds [facility] INR 1.1 See Comment [facility] Comment: Suggested therapeutic range for low-intensity coumadin therapy for venous thromboembolism prophylaxis is an INR of 2.0-3.0. For high risk patients (Mitral Valve Prosthesis, Atrial Fibrillation, history of TIA/stroke), suggested prophylactic therapeutic range is an INR of 2.5-3.5. Blood specimen (specimen) BLOOD SPECIMEN / Unknown 10/16/2017 2:06 PM DOUGH CATCHER 10/16/2017 2:29 PM DOUGH CATCHER Narrative [facility] - 10/16/2017 2:40 PM DOUGH CATCHER Is patient on Heparin, Argatroban or Dabigatran?->N Addison Campos MD LAB - COAGULATION OR DERABLES Performing Organization Address [facility] Co de Phone Number [address] [phone] * HIV-1 HIV-2 ANTIGEN/ANTIBODY (10/16/2017 2:06 PM DOUGH CATCHER) HIV Antigen/Antibod y 1 & 2 Non-reacti ve Non-react irineo [facility] Comment: Neither HIV-1 p24 Antigen nor HIV-1/HIV-2 Antibodies are detected. Blood specimen (specimen) BLOOD SPECIMEN / Unknown 10/16/2017 2:06 PM DOUGH CATCHER 10/16/2017 2:29 PM DOUGH CATCHER Addison Campos MD LAB - HEMATOLOGY ORD ERABLES [facility] [address] [phone] * COMPREHENSIVE METABOLIC PANEL (10/16/2017 2:06 PM DOUGH CATCHER) BUN 14 7 - 26 mg/dL [facility] Creatinine 0.7 0.6 - 1.2 mg/dL [facility] Sodium 140 136 - 145 mmol/L [facility] Potassium 3.9 3.5 - 4.5 mmol/L [facility] Chloride 103 98 - 107 mmol/L [facility] CO2 26 22 - 29 mmol/L [facility] Glucose 81 70 - 115 mg/dL [facility] Calcium 9.6 8.4 - 10.2 mg/dL [facility] Protein Total 7.7 6.0 - 8.3 g/dL [facility] Albumin 4.2 3.4 - 5.0 g/dL [facility] Bilirubin Total 0.8 0.2 - 1.2 mg/dL [facility] Alkaline Phosphatase 82 40 - 150 Units/L [facility] ALT 20 0 - 55 Units/L [facility] AST 21 5 - 34 Units/L [facility] Anion Gap 15 8 - 18 [facility] BUN/Creatinine Ratio 20 7 - 23 [facility] Osmolality Calculated 290 270 - 300 mOsm/kg [facility] Albumin/Globulin Ratio 1.2 1.1 - 2.3 [facility] eGFR >60 >60 mL/min/1.7 3 m2 [facility] Blood specimen (specimen) BLOOD SPECIMEN / Unknown 10/16/2017 2:06 PM DOUGH CATCHER 10/16/2017 2:29 PM DOUGH CATCHER Addison Campos MD LAB - CHEMISTRY AYAH ZAYAS Performing Organization Address [facility] Co de Phone Number [address] [phone] * HEPATITIS SCREEN ACUTE (10/16/2017 2:06 PM DOUGH CATCHER) Hepatitis A Virus Antibody IgM Non-react [facility] Hepatitis B Virus Surface Antigen Non-react [facility] Hepatitis B Core Virus Antibody IgM Non-react [facility] Hepatitis C Antibody Non-react [facility] Comment: Hepatitis C Antibody screen indicates no serologic evidence of past or current infection with Hepatitis C Virus. Patients with unexplained liver disease who are immunocompromised or suspected of having acute Hepatitis C infection may benefit from Nucleic Acid Test (ANTOINE) for Hepatitis C Viral RNA to confirm Hepatitis C status. Blood specimen (specimen) BLOOD SPECIMEN / Unknown 10/16/2017 2:06 PM DOUGH CATCHER 10/16/2017 2:29 PM DOUGH CATCHER Addison Campos MD LAB - CHEMISTRY AYAH ZAYAS Performing Organization Address [place] [facility] Co de Phone Number [address] [phone] * EKG 12-LEAD (10/16/2017 12:00 AM DOUGH CATCHER) 10/16/2017 Walt Holder MD ECG ORDERABLES Performing Organization Address City/[facility]/ZIP Co de Phone Number [facility] RADIOLOGY * MRI BRAIN FUNCTIONAL (05/22/2016 3:35 [...] REILLY M.D. have personally reviewed and interpreted this [...] ORDERABLES * CULTURE URINE (10/07/2013 9:50 AM DOUGH CATCHER) Culture Urine LESS THAN 10,000 CFU/ML OF NORMAL UROGENITAL/ SKIN ELA. LESS THAN 10,000 CFU/ML OF NORMAL FECAL ELA. [facility] Culture Results [facility] Urine specimen (specimen) 10/07/2013 9:50 AM DOUGH CATCHER 10/08/2013 9:36 AM DOUGH CATCHER Demetrio Jaramillo MD LAB - MICROBIOLOGY O RDERABLES [address] [phone] * GROSS + MICRO EXAM (11/27/2006 2:14 PM CDT) Result CASE NUMBER [id number] [facility] LAB PATH REPORT Comment: ORDERING PHYSICIAN [...] and interpreted by the attending (teaching) pathologist. First Assist PEDRITO RCUMP RESIDENT IN PATHOLOG Fredi Velazquez M.D. PATHOLOGIST Lakeshia Wyman M.D. ELECTRONICALLY RADHALAKESHIA THACKER MISCELLANEOUS SAMPLES / Unknown 11/27/2006 2:14 PM CDT 11/27/2006 3:15 PM CDT Historical Provider MD LAB - PATHOLOGY/C YTOLOGY ORDERABLES [facility] LAB PATH REPORT Care Teams Leather Production Worker Relationship Specialty Start Date End Date Ab Riggs APRN-ALBERTA [address] [place] [phone] PCP - General Nurse Practitioner Family 04/22/24
== END 2024-10-20 09:45 | disposition home or self-care (01) ==
PROVIDERS: PCP Nurse Practitioner Family; Visit Provider Physical Medicine & Rehabilitation Pain Medicine
DX: M43.06 Spondylolysis, lumbar region (principal); M47.896 Other spondylosis, lumbar region; M43.02 Spondylolysis, cervical region; M47.892 Other spondylosis, cervical region
CPT/HCPCS: 72141; 72148